=== PATIENT | male | born 1945 | race Caucasian/White ===

== ENCOUNTER 2017-10-28 12:18 | Emergency (ER) | payer MEDICARE, BC ==
[2017-10-28 12:30] VITALS: BP 115/71
--- NOTE | 2017-10-28 12:58 | EDM.PDOC ---
ED HPI GENERAL MEDICAL PROBLEM - General Chief Complaint: Respiratory Problem Stated Complaint: HEART PROBLEMS/COPD Time Seen by Provider: 10/28/17 12:30 Source of Information: Reports: Patient, RN Notes Reviewed - History of Present Illness INITIAL COMMENTS - FREE TEXT/NARRATIVE: 72-year-old male has been sent over from clinic for evaluation of cough, fever chills and being more short of breath than usual for about the past 2 weeks. He has used oxygen primarily at night and when necessary daytime in the past but has had to use oxygen much more frequently over the past 2 weeks. When symptoms first started he did have nasal and sinus congestion. That has improved somewhat over time. He continues to have somewhat frequent cough frequently productive of colored phlegm. He did go to the clinic this past morning for evaluation. He was noted to have some rhythm disturbance there and was found to have a heart rate of only 38. upon further questioning his states this was with pulse oximeter. Subsequent EKG sent over from clinic showed bigeminy with frequent PACs and a heart rate of 77. With that all in mind and suspected heart rate of only 38 he was sent here to the ED for further evaluation. He has had no chest pain, abdominal pain nausea vomiting. He does have chronic leg edema currently somewhat worse than usual. - Related Data Allergies Allergy/AdvReac Type Severity Reaction Status Date / Time No Known Allergies Allergy Verified 10/28/17 12:30 Home Meds: Home Meds ALPRAZolam [Xanax] 1 mg PO BID PRN 12/22/15 [History] Tiotropium [Spiriva HandiHaler] 1 puff INH DAILY 12/22/15 [History] Zolpidem [Ambien] 10 mg PO BEDTIME 12/22/15 [History] Albuterol [Proair HFA] 2 puff INH Q6H PRN 10/28/17 [History] Fluticasone/Vilanterol [Breo Ellipta 100-25 MCG Inhalation Kit] 1 puff INH DAILY 10/28/17 [History] Levofloxacin [Levaquin] 500 mg PO DAILY #10 tab 10/28/17 [Rx] Past Medical History HEENT History: Reports: Impaired Vision Respiratory History: Reports: COPD, Sleep Apnea Psychiatric History: Reports: Anxiety - Past Surgical History GI Surgical History: Reports: Colonoscopy Social & Family History - Tobacco Use Smoking Status *Q: Former Smoker Years of Tobacco use: 40 Packs/Tins Daily: 2 Used Tobacco, but Quit: No Month/Year Tobacco Last Used: 11 years ago - Caffeine Use Caffeine Use: Reports: Coffee - Recreational Drug Use Recreational Drug Use: No Drug Use in Last 12 Months: No - Living Situation & Occupation Living situation: Reports: , with Spouse Occupation: Employed ED ROS GENERAL - Review of Systems Review Of Systems: See Below Constitutional: Reports: Fever, Chills. Denies: Diaphoresis HEENT: Reports: Rhinitis, Sinus Problem Respiratory: Reports: Shortness of Breath, Wheezing, Cough, Sputum Cardiovascular: Denies: Chest Pain GI/Abdominal: Denies: Abdominal Pain, Nausea, Vomiting Musculoskeletal: Denies: Neck Pain, Shoulder Pain, Back Pain Skin: Denies: Rash Neurological: Denies: Dizziness, Trouble Speaking, Difficulty Walking ED EXAM, GENERAL - Physical Exam Exam: See Below General Appearance: Alert Eye Exam: Bilateral Eye: PERRL Nose: Normal Inspection Throat/Mouth: Normal Inspection, Normal Oropharynx Head: Atraumatic. No: Facial Swelling Neck: Supple, Full Range of Motion Respiratory/Chest: No Respiratory Distress, Lungs Clear, Decreased Breath Sounds Cardiovascular: Irregularly Irregular GI/Abdominal: Soft, Non-Tender Back Exam: No: CVA Tenderness (L), CVA Tenderness (R) Extremities: Pedal Edema. No: Leg Pain Neurological: Alert, Oriented, No Motor/Sensory Deficits Skin Exam: Warm, Dry, Other (Mild stasis dermatitis changes bilateral distal legs) Course - Vital Signs Last Recorded V/S: Last Vital Signs Temp 99.1 F 10/28/17 12:27 Pulse 73 10/28/17 12:27 Resp 16 10/28/17 12:27 BP 115/71 10/28/17 12:27 Pulse Ox 96 10/28/17 12:41 - Orders/Labs/Meds Labs: Laboratory Tests 10/28/17 10/28/17 Range/Units 11:48 11:48 C-Reactive Protein 4.0 H* (<1.0) mg/dL NT-Pro-B Natriuret Pep 677 H (0-125) pg/mL - Radiology Interpretation Free Text/Narrative:: Normal heart size on chest x-ray, appears to have bilateral upper lobe infiltrates suspect infectious according to radiology report which would fit his current symptoms. Possible mild pulmonary congestion. - Re-Assessments/Exams Free Text/Narrative Re-Assessment/Exam: 10/28/17 15:00. Labs have been sent or faxed over from clinic including a white blood count of 6300, chemistries normal, d-dimer and troponin normal. BNP normal , C-reactive protein mildly elevated. Heart rate while here in the ED has consistently been in the upper 60s to mid 70s. Much of the time he is been in supraventricular bigeminy. blood pressures have been very normal running primarily in the 130s systolic. He has been pain-free and oxygenation has been good with nasal O2 sats running in the mid 90s. His tells me as documented that his heart rate of 38 at the clinic was from a reading from a finger oximeter which must not have been picking up the PAC heartbeats or pulse because that would've been weaker secondary to decreased filling time. EKG sent over from the clinic showed a heart rate of 77. I have assured patient and his that he does not need a pacemaker at this time. His chest x-ray does show bilateral upper infiltrates, see radiology report for details. I am going to put him on Levaquin 500 milligrams daily for upper lobe pneumonia. I will put him on a six-day course of prednisone 40 mg every morning for 3 days and then 20 mg every morning for 3 days. Follow up clinic early next week. They will return to the ED if symptoms worsening in any way. Departure - Departure Time of Disposition: 15:17 Disposition: Home, Self-Care 01 Condition: Fair Clinical Impression: Pneumonia Qualifiers: Pneumonia type: due to unspecified organism Laterality: bilateral Lung location : upper lobe of lung Qualified Code(s): J18.1 - Lobar pneumonia, unspecified organism - Discharge Information Prescriptions: Levofloxacin [Levaquin] 500 mg PO DAILY #10 tab Referrals: Adonis Barron MD [Primary Care Provider] - Forms: ED Department Discharge Additional Instructions: Use inhalers as previously prescribed, Levaquin 500 mg daily for 10 days, continue to use oxygen aggressively until symptoms improving, prednisone 40 mg every morning for 3 days and then 20 mg every morning for [address] Barron early next week for recheck, call for appointment, return to ED as needed if symptoms worsening in any way
== END 2017-10-28 15:45 | disposition home or self-care (01) ==
LOC: JD.ED 12:18
DX: J18.9 Pneumonia, unspecified organism (principal); Z79.899 Other long term (current) drug therapy; Z87.891 Personal history of nicotine dependence; R06.02 Shortness of breath
CPT/HCPCS: 36415; 83880; 86140; 99284; 99285

== ENCOUNTER 2018-05-14 19:55 | Emergency (ER) | payer MEDICARE, BC ==
[2018-05-14 20:11] VITALS: BP 148/78
--- NOTE | 2018-05-14 21:03 | EDM.PDOC ---
ED HPI GENERAL MEDICAL PROBLEM - General Chief Complaint: Eye Problems Stated Complaint: EYE PROBLEM Time Seen by Provider: 05/14/18 21:03 - History of Present Illness INITIAL COMMENTS - FREE TEXT/NARRATIVE: 72-year-old male presents to the emergency room with continued left eye irritation. 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 He is not having any fevers or chills no perioral swelling Left Eye Pain Score (Numeric/FACES): 8 - Related Data Allergies Allergy/AdvReac Type Severity Reaction Status Date / Time No Known Allergies Allergy Verified 05/14/18 20:07 Home Meds: Home Meds ALPRAZolam [Xanax] 1 mg PO BID PRN 12/22/15 [History] Tiotropium [Spiriva HandiHaler] 1 puff INH DAILY 12/22/15 [History] Zolpidem [Ambien] 10 mg PO BEDTIME 12/22/15 [History] Albuterol [Proair HFA] 2 puff INH Q6H PRN 10/28/17 [History] Fluticasone/Vilanterol [Breo Ellipta 100-25 MCG Inhalation Kit] 1 puff INH DAILY 10/28/17 [History] Ciprofloxacin [Ciprofloxacin 0.3% Ophth Soln] 2 drop OP Q6H #1 bottle 05/14/18 [ Rx] Past Medical History HEENT History: Reports: Impaired Vision Respiratory History: Reports: COPD, Sleep Apnea Psychiatric History: Reports: Anxiety - Past Surgical History GI Surgical History: Reports: Colonoscopy Social & Family History - Tobacco Use Smoking Status *Q: Never Smoker - Caffeine Use Caffeine Use: Reports: Coffee - Living Situation & Occupation Living situation: Reports: , with Spouse Occupation: Employed ED ROS GENERAL - Review of Systems Review Of Systems: See Below Constitutional: Reports: No Symptoms HEENT: Reports: Eye Discharge. Denies: Ear Discharge, Ear Pain, Eye Pain, Nose Pain, Rhinitis Respiratory: Reports: No Symptoms Cardiovascular: Reports: No Symptoms GI/Abdominal: Reports: No Symptoms ED EXAM GENERAL W FULL EYE - Physical Exam Exam: See Below Exam Limited By: No Limitations General Appearance: Alert, No Apparent Distress Eye Exam: Bilateral Eye: Normal Fundi, PERRL Visual Acuity (R) 20/: 40 (This value was reported to be by nursing) Visual Acuity (L) 20/: 40 Conjunctiva & Sclera: Left: Conjunctival Edema, Discharge Cornea Exam: Bilateral: Normal Appearance Extraocular Movements: Bilateral: Intact Pupillary Reaction: Bilateral: Brisk Anterior Chamber: Bilateral: Normal Appearance Comments: No cold tenderness on palpation no evidence of yany-orbital cellulitis Neck: Normal Inspection, Supple, Non-Tender, Full Range of Motion. No: Lymphadenopathy (L), Lymphadenopathy (R) Respiratory/Chest: No Respiratory Distress, Lungs Clear, Normal Breath Sounds, No Accessory Muscle Use, Chest Non-Tender Cardiovascular: Normal Peripheral Pulses, Regular Rate, Rhythm, No Edema, No Gallop, No JVD, No Murmur, No Rub Course - Vital Signs Last Recorded V/S: Last Vital Signs Temp 36.8 C 05/14/18 20:08 Pulse 63 05/14/18 20:08 Resp 18 05/14/18 20:08 BP 148/78 H 05/14/18 20:08 Pulse Ox 89 L 05/14/18 20:08 - Re-Assessments/Exams Free Text/Narrative Re-Assessment/Exam: 05/14/18 21:16 Received conjunctivitis and polymyxin B eyedrops possible reaction to this compound we will change to Cipro 0.3% 2 drops 4 times a day for 5-7 days with follow-up with ophthalmology early this next week Departure - Departure Time of Disposition: 21:17 Disposition: Home, Self-Care 01 Clinical Impression: Conjunctivitis - Discharge Information Prescriptions: Ciprofloxacin [Ciprofloxacin 0.3% [facility]] 2 drop OP Q6H #1 bottle Instructions: Allergic Conjunctivitis, Adult, [id number] Referrals: Adonis Barron MD [Primary Care Provider] - Forms: ED Department Discharge Additional Instructions: Return to the emergency room with any questions problems worsening symptoms. Stop using her existing eyedrops start using the Cipro eyedrops to the effected eye 4 times daily for 5-7 day. Use warm moist compresses to the eye every couple hours while awake. At least once daily given the shower and scrub the area really well with Manjinder's baby shampoo. Follow-up with your eye doctor on Wednesday
== END 2018-05-14 21:27 | disposition home or self-care (01) ==
LOC: JD.ED 19:55
DX: H10.9 Unspecified conjunctivitis (principal); Z79.899 Other long term (current) drug therapy
CPT/HCPCS: 99282; 99283

== ENCOUNTER 2018-08-23 20:10 | Emergency (ER) | payer MEDICARE, BC ==
[2018-08-23 20:21] VITALS: BP 122/70
--- NOTE | 2018-08-23 20:27 | EDM.PDOC ---
ED HPI GENERAL MEDICAL PROBLEM - General Chief Complaint: Respiratory Problem Stated Complaint: SHORT OF BREATH Time Seen by Provider: 08/23/18 20:27 Source of Information: Reports: Patient History Limitations: Reports: Respiratory Distress - History of Present Illness INITIAL COMMENTS - FREE TEXT/NARRATIVE: 72-year-old male attends the ED with gradually worsening dyspnea over the last several days and perhaps even a week. No associated fever chills. Nose is congested he's always blowing it. He denies any productive cough. He appreciates increased wheezing and dyspnea on minimal exertion. Even walking to the bathroom makes him dyspnea a great change from his norm over the last week. Patient recently did see the roll up machine operator and had his oxygen increased from 2- 4 L/m at all times. He's had COPD for 10 years and appears to have suffered a acute exacerbation and decline in pulmonary function. He denies any changes in his medications. Uses 3 different puffers in the morning. He denies use of an old nebulizer. Denies any chest pain. States he can eat much because his stomach feels so full. Onset: Gradual Onset Date: 08/16/18 (Gradually worsening dyspnea over the last week or perhaps even longer.) Duration: Day(s):, Getting Worse Location: Reports: Chest (Shortness of breath on minimal exertion. Exercise will go down into the 70s on minimal exertion on his pulse ox even with oxygen.) Quality: Reports: Other Severity: Severe (Severe dyspnea) Improves with: Reports: Rest Worsens with: Reports: Movement Context: Denies: Activity, Exercise, Lifting, Sick Contact, Trauma Associated Symptoms: Reports: Loss of Appetite, Malaise, Shortness of Breath. 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) (Just his regular medications.) - Related Data Allergies Allergy/AdvReac Type Severity Reaction Status Date / Time No Known Allergies Allergy Verified 05/14/18 20:07 Home Meds: Home Meds ALPRAZolam [Xanax] 1 mg PO BID PRN 12/22/15 [History] Tiotropium [Spiriva HandiHaler] 1 puff INH DAILY 12/22/15 [History] Zolpidem [Ambien] 10 mg PO BEDTIME 12/22/15 [History] Albuterol [Proair HFA] 2 puff INH Q6H PRN 10/28/17 [History] Fluticasone/Vilanterol [Breo Ellipta 100-25 MCG Inhalation Kit] 1 puff INH DAILY 10/28/17 [History] Cholecalciferol (Vitamin D3) [Vitamin D3] 1 cap PO DAILY 08/23/18 [History] Furosemide [Lasix] 40 mg PO DAILY #30 tab 08/23/18 [Rx] Iron 18 mg PO DAILY 08/23/18 [History] Potassium Chloride 20 meq PO BID #60 tablet.er 08/23/18 [Rx] Past Medical History HEENT History: Reports: Impaired Vision Respiratory History: Reports: COPD (Currently on oxygen at 4 L/m at all times.) , Sleep Apnea Psychiatric History: Reports: Anxiety - Past Surgical History GI Surgical History: Reports: Colonoscopy Social & Family History - Tobacco Use Smoking Status *Q: Former Smoker Used Tobacco, but Quit: Yes Month/Year Tobacco Last Used: 13 yr - Caffeine Use Caffeine Use: Reports: Coffee - Recreational Drug Use Recreational Drug Use: No - Living Situation & Occupation Living situation: Reports: , with Spouse Occupation: Employed ED ROS GENERAL - Review of Systems Review Of Systems: See Below Constitutional: Reports: Malaise, Weakness, Fatigue, Decreased Appetite. Denies : Fever, Chills HEENT: Reports: Glasses, Sinus Problem (Has a chronic sinus drainage.) Respiratory: Reports: Shortness of Breath, Wheezing. Denies: Pleuritic Chest Pain, Cough, Hemoptysis Cardiovascular: Reports: Dyspnea on Exertion (HAS a little swelling in his lower extremities), Edema. Denies: Chest Pain, Blood Pressure Problem, Claudication, Lightheadedness, Orthopnea, Palpitations Endocrine: Reports: Fatigue GI/Abdominal: Reports: Abdominal Pain (Abdominal pressure but no pain per se). Denies: Constipation : Reports: Frequency, Other (Has BPH) Musculoskeletal: Reports: No Symptoms Skin: Reports: Other (Chronic venous stasis dermatitis in both lower extremities with no previous ulcers of the lower extremities reported.) Neurological: Reports: No Symptoms Psychiatric: Reports: No Symptoms Hematologic/Lymphatic: Reports: No Symptoms Immunologic: Reports: No Symptoms ED EXAM, GENERAL - Physical Exam Exam: See Below Exam Limited By: No Limitations General Appearance: Alert, WD/WN, Mild Distress, Other (Sats are 94% at rest. This is on 3 L/m by nasal cannula) Eye Exam: Bilateral Eye: Normal Inspection Ears: Normal TMs Throat/Mouth: Normal Inspection, Normal Lips, Normal Teeth, Normal Gums, Normal Oropharynx Head: Atraumatic, Normocephalic Neck: Normal Inspection, Supple, Non-Tender, Full Range of Motion. No: Lymphadenopathy (R), Tender Midline Respiratory/Chest: No Accessory Muscle Use, Respiratory Distress (Tachypnea at rest. 20-22/m.), Decreased Breath Sounds (Breath sounds are diminished to the lower 25% of lung hi bilaterally. Bilateral expiratory wheezes are appreciated), Wheezing ( from the lung bases.). No: Rales, Rhonchi Cardiovascular: Regular Rate, Rhythm, No Murmur, No Rub. No: No Edema Peripheral Pulses: 1+: Posterior Tibial (L), Posterior Tibial (R), Dorsalis Pedis (L), Dorsalis Pedis (R) GI/Abdominal: Distended (I'll sounds are quite active in all 4 quadrants. Ms. grossly distended and tympanitic to percussion due to aerophagia. He does have a midline abdominal incision that occurred apparently after colonoscopy with perforation of his colon which required surgical intervention and primary anastomosis or closure of the rupture. This occurred in [place].), Abnormal Bowel Sounds Back Exam: Normal Inspection, Full Range of Motion. No: CVA Tenderness (L), CVA Tenderness (R) Extremities: Normal Inspection, Normal Range of Motion, Non-Tender, No Pedal Edema Neurological: Alert, Oriented, CN II-XII Intact, Normal Cognition Psychiatric: Normal Affect, Normal Mood Skin Exam: Warm, Dry, Intact, Normal Color, No Rash EKG INTERPRETATION EKG Date: 08/23/18 Time: 20:48 Rhythm: Other (Frequent PACs.) Rate (Beats/Min): 60 [place]: Normal P-Wave: Enlarged (Consider left and right atrial hypertrophy.) QRS: Other (Nonspecific intraventricular conduction delay likely developing right bundle block pattern) ST-T: Normal QT: Normal EKG Interpretation Comments: Abnormal ECG Course - Vital Signs Last Recorded V/S: Last Vital Signs Temp 36.2 C 08/23/18 20:19 Pulse 63 08/23/18 20:19 Resp 20 08/23/18 20:19 BP 122/70 08/23/18 20:19 Pulse Ox 97 08/23/18 21:18 - Orders/Labs/Meds Orders: Active Orders 24 hr Category Date Time Status EKG Documentation Completion [RC] STAT Care 08/23/18 20:39 Active Oxygen Therapy [RC] ASDIRECTED Care 08/23/18 20:39 Active Peripheral IV Care [RC] . DIRECTED Care 08/23/18 20:40 Active RT Aerosol Therapy [RC] ASDIRECTED Care 08/23/18 20:41 Active Chest 1V Frontal [CR] Stat Exams 08/23/18 20:39 Taken Peripheral IV Insertion Adult [OM.PC] Stat Oth 08/23/18 20:40 Ordered Labs: Laboratory Tests 08/23/18 08/23/18 08/23/18 Range/Units 21:20 21:20 21:20 WBC 4.65 (4.23-9.07) K/mm3 RBC 2.98 L (4.63-6.08) M/mm3 Hgb 10.2 L (13.7-17.5) gm/L Hct 31.8 L (40.1-51.0) % MCV 106.7 H (79.0-92.2) fl MCH 34.2 H (25.7-32.2) pg MCHC 32.1 L (32.2-35.5) g/dl RDW Std Deviation 59.2 H (35.1-43.9) fL Plt Count 195 (163-337) K/mm3 MPV 9.6 (9.4-12.3) fl Neutrophils % (Manual) 74 H (40-60) % Band Neutrophils % 0 (0-10) % Lymphocytes % (Manual) 19 L (20-40) % Atypical Lymphs % 0 % Monocytes % (Manual) 4 (2-10) % Eosinophils % (Manual) 2 (0.8-7.0) % Basophils % (Manual) 1 (0.2-1.2) Platelet Estimate Adequate Polychromasia Few Poikilocytosis 1+ slight Anisocytosis 2+ moderate Macrocytosis 2+ moderate Ovalocytes 1+ slight D-Dimer, Quantitative (0.19-0.50) mg/L Sodium 144 (136-145) mEq/L Potassium 3.5 (3.5-5.1) mEq/L Chloride 110 H (98-107) mEq/L Carbon Dioxide 26 (21-32) mEq/L Anion Gap 11.5 (5-15) BUN 21 H (7-18) mg/dL Creatinine 1.3 (0.7-1.3) mg/dL Est Cr Clr Drug Dosing 54.71 mL/min Estimated GFR (MDRD) 54 (>60) mL/min BUN/Creatinine Ratio 16.2 (14-18) Glucose 139 H (83-115) mg/dL Calcium 8.4 L (8.5-10.1) mg/dL Magnesium 2.0 (1.8-2.4) mg/dl Total Bilirubin 0.6 (0.2-1.0) mg/dL AST 22 (15-37) U/L ALT 32 (16-63) U/L Alkaline Phosphatase 60 (46-116) U/L CK-MB (CK-2) 1.6 (0-3.6) ng/ml Troponin I 0.027 (0.00-0.056) ng/mL C-Reactive Protein 5.6 H* (<1.0) mg/dL NT-Pro-B Natriuret Pep 674 H (0-125) pg/mL Total Protein 6.5 (6.4-8.2) g/dl Albumin 3.1 L (3.4-5.0) g/dl Globulin 3.4 gm/dL Albumin/Globulin Ratio 0.9 L (1-2) 08/23/18 Range/Units 21:20 WBC (4.23-9.07) K/mm3 RBC (4.63-6.08) M/mm3 Hgb (13.7-17.5) gm/L Hct (40.1-51.0) % MCV (79.0-92.2) fl MCH (25.7-32.2) pg MCHC (32.2-35.5) g/dl RDW Std Deviation (35.1-43.9) fL Plt Count (163-337) K/mm3 MPV (9.4-12.3) fl Neutrophils % (Manual) (40-60) % Band Neutrophils % (0-10) % Lymphocytes % (Manual) (20-40) % Atypical Lymphs % % Monocytes % (Manual) (2-10) % Eosinophils % (Manual) (0.8-7.0) % Basophils % (Manual) (0.2-1.2) Platelet Estimate Polychromasia Poikilocytosis Anisocytosis Macrocytosis Ovalocytes D-Dimer, Quantitative 0.36 (0.19-0.50) mg/L Sodium (136-145) mEq/L Potassium (3.5-5.1) mEq/L Chloride (98-107) mEq/L Carbon Dioxide (21-32) mEq/L Anion Gap (5-15) BUN (7-18) mg/dL Creatinine (0.7-1.3) mg/dL Est Cr Clr Drug Dosing mL/min Estimated GFR (MDRD) (>60) mL/min BUN/Creatinine Ratio (14-18) Glucose (83-115) mg/dL Calcium (8.5-10.1) mg/dL Magnesium (1.8-2.4) mg/dl Total Bilirubin (0.2-1.0) mg/dL AST (15-37) U/L ALT (16-63) U/L Alkaline Phosphatase (46-116) U/L CK-MB (CK-2) (0-3.6) ng/ml Troponin I (0.00-0.056) ng/mL C-Reactive Protein (<1.0) mg/dL NT-Pro-B Natriuret Pep (0-125) pg/mL Total Protein (6.4-8.2) g/dl Albumin (3.4-5.0) g/dl Globulin gm/dL Albumin/Globulin Ratio (1-2) Meds: Medications Discontinued Medications Generic Name Dose Route Start Last Admin Trade Name Freq PRN Reason Stop Dose Admin Albuterol/Ipratropium 3 ml 08/23/18 20:41 08/23/18 21:15 Duoneb 3.0-0.5 Mg/3 Ml NEB 08/23/18 20:42 3 ml ONETIME ONE Administration Furosemide 40 mg 08/23/18 22:25 08/23/18 22:45 Lasix PO 08/23/18 22:26 40 mg ONETIME ONE Administration Sodium Chloride 10 ml 08/23/18 20:39 Saline Flush FLUSH ASDIRECTED PRN Keep Vein Open - Radiology Interpretation Free Text/Narrative:: 72-year-old male attends the ED tonight due to gradually worsening dyspnea over the last week or perhaps even longer. There is a component of orthopnea as well. Patient has COPD for at least 10 years and has been oxygen dependent for that length of time. He also has sleep apnea and does use a CPAP machine at bedtime. Over the last week to 10 days she's developed increasing dyspnea on minimal exertion such as walking to the bathroom. He has oxygen was recently increased from 2 L/m 4 L/m by his roll up machine operator within the last 6 weeks. He has mild cough. No fever or chills. He is handheld nebulizers for treatment of his COPD but doesn't feel they're working very well as of late. Cough is if anything nonproductive. He can't eat because he feels so bloated and distended due to aerophagia. Examination reveals decreased air into the lower 25% lung hi bilaterally with bilateral expiratory wheezes. Rales were identified. His lower chimney is however show dependent edema to mid calf bilaterally are 2 + to 3+ pitting edema with some venous stasis dermatitis noted bilaterally likely due to chronic right-sided heart failure. There was no positive hepatojugular reflux. Question is exacerbation of COPD whether or not there is a just heart failure component. Plan 1 view chest x-ray to be done. Routine labs include BNP and serum magnesium. He will be given a DuoNeb here in the ED. Roommate be maintain on oxygen 3 L/m is a sats are 94-96% currently. - Re-Assessments/Exams Free Text/Narrative Re-Assessment/Exam: 08/23/18 21:24 chest x-ray reveals markedly hyperinflated lung hi. Minimal cardiomegaly. There appears to be hazy infiltrate adjacent to the left heart border lower lung field. There does appear to be diffuse vascular congestion to both upper lobes. There is no pleural effusion evident. ECG shows sinus rhythm at 60/m with occasional PACs. No signs of ischemia evident. No ECG evidence of right-sided heart enlargement. 08/23/18 22:13 Labs reveal a normal white count at 4.65. Differential is 74% neutrophils with no band cells. Hemoglobin is low at 10.2 with hematocrit of 31.8. MCV is elevated at 106.7. Platelet count is 195,000. Lymphocyte count 19% . The slide shows 1+ poikilocytosis. It shows 2+ anisocytosis and 2+ macrocytosis and 1+ ovalocytes. The d-dimer is 0.36. Normal sodium 144 with potassium of 3.5. Chloride 110 with a bicarbonate 26. And a gap is 11.5. BUN is 21. Creatinine is 1.3 EGFR is 54. Glucose is 139 with a calcium of 8.4. He needs to miss 2.0. Liver function is normal. CK-MB fraction is 1.6 troponin I is 0.027. C-reactive protein is mildly elevated at 5.6. BNP is elevated at 674. Total protein 6.5 with an albumin fraction of only 3.1. 08/23/18 22:25 Discussed the findings with the patient. I will give him Lasix 40 mg by mouth since an IV was never started on him. I will start him on Lasix 40 mg once daily every morning. His potassium is 3.5 and therefore I will also start him on potassium supplement 20 mEq of Slow-K ,twice daily .he will check his weights daily and write them down. He has a follow-up appointment with roll up machine operator(Sep 19) and his primary care physician Dr. Barron--next week Wednesday. Patient is going to need an echocardiogram. He is due for bone marrow aspiration on this week in [place]. Departure - Departure Time of Disposition: 22:27 Disposition: Home, Self-Care 01 Condition: Fair Clinical Impression: COPD exacerbation, Macrocytic anemia Congestive heart failure Qualifiers: Heart failure type: combined systolic and diastolic Heart failure chronicity: acute Qualified Code(s): I50.41 - Acute combined systolic (congestive) and diastolic (congestive) heart failure - Discharge Information *PRESCRIPTION DRUG MONITORING PROGRAM REVIEWED*: Not Applicable *COPY OF PRESCRIPTION DRUG MONITORING REPORT IN PATIENT NICOLE: Not Applicable Prescriptions: Furosemide [Lasix] 40 mg PO DAILY #30 tab Potassium Chloride 20 meq PO BID #60 tablet.er Instructions: Chronic Obstructive Pulmonary Disease, [id number], Heart Failure, [id number] Referrals: Adonis Barron MD [Primary Care Provider] - Forms: ED Department Discharge Additional Instructions: Evaluation the emergency room today in regards to increasing shortness of breath on minimal exertion. Chronic COPD for greater than 10 years and need for CPAP machine at bedtime for about 10 years. Emanation reveals decreased air entry to the lower lung hi bilaterally with mild expiratory wheezes. O2 sats remained above 94% on 3 or 4 L/m by nasal cannula. Chest x-ray suggested diffuse increased fluid within the lung vessels. Call this diffuse vascular congestion. Lab test confirm that there is an increased amount of fluid buildup within your lungs with a BNP of 674. Therefore treatment is to start a diuretic called Lasix 40 mg once daily every morning to help remove fluid from both her lower extremities as well as your lungs. Follow-up with Dr. Barron next week as planned and he will arrange an echocardiogram to look at the structure in size and shape of your heart. Also measures how well the pump is functioning. Placed up on the scale every morning and went on your weight so that we can see how much fluid you may lose over the next week or so. It is still okay to proceed with bone marrow biopsy on as planned in [place]. Continue all other medications as before. The second medication will require is a potassium supplement since her potassium is low normal at 3.5. Water pills make the potassium go lower. Will need potassium pills Slow-K 20 mg twice daily with food used to breakfast and supper. - My Orders Last 24 Hours: My Active Orders 08/23/18 20:39 EKG Documentation Completion [RC] STAT Oxygen Therapy [RC] ASDIRECTED Chest 1V Frontal [CR] Stat 08/23/18 20:40 Peripheral IV Care [RC] . DIRECTED Peripheral IV Insertion Adult [OM.PC] Stat 08/23/18 20:41 RT Aerosol Therapy [RC] ASDIRECTED - Assessment/Plan Last 24 Hours: My Active Orders 08/23/18 20:39 EKG Documentation Completion [RC] STAT Oxygen Therapy [RC] ASDIRECTED Chest 1V Frontal [CR] Stat 08/23/18 20:40 Peripheral IV Care [RC] . DIRECTED Peripheral IV Insertion Adult [OM.PC] Stat 08/23/18 20:41 RT Aerosol Therapy [RC] ASDIRECTED
[2018-08-23] MEDS ORDERED: Sodium Chloride 0.9% 10 ML Syringe FLUSH PRN (20:39)
[2018-08-23] MEDS ORDERED: Albuterol/Ipratropium 3.0-0.5 MG/3 ML Neb Soln NEB ONE (20:41)
[2018-08-23] MEDS ORDERED: Furosemide 40 MG/4 ML VIAL IVPUSH ONE (22:14)
[2018-08-23] MEDS ORDERED: Furosemide 40 MG Tab PO ONE (22:25)
--- NOTE | 2018-08-24 07:07 | CR ---
Chest: Portable view of the chest was obtained. Comparison: Prior chest x-ray of 01/25/16. Heart size appears within normal limits for portable technique. Tortuous thoracic aorta is seen. Lungs are clear without acute parenchymal change. Central lung markings are mildly increased which appear stable from prior chest x-ray. Probable emphysematous change is also noted. Impression: 1. Probable emphysematous change. Other findings are believed to be stable and related to portable technique. 2. Nothing acute is suspected. Diagnostic code #2
== END 2018-08-23 22:45 | disposition home or self-care (01) ==
LOC: JD.ED 20:10
DX: I50.41 Acute combined systolic (congestive) and diastolic (congestive) heart failure (principal); J44.1 Chronic obstructive pulmonary disease with (acute) exacerbation; D53.9 Nutritional anemia, unspecified; Z79.899 Other long term (current) drug therapy; Z87.891 Personal history of nicotine dependence
CPT/HCPCS: 36415; 71045; 80053; 82553; 83735; 83880; 84484; 85007; 85027; 85379; 86140; 93005; 94640; 99285; A9270; 93010; 99283; J7620-GY

== ENCOUNTER 2018-12-10 12:33 | Emergency (ER) | payer MEDICARE, BC ==
[2018-12-10 12:46] VITALS: BP 125/75
--- NOTE | 2018-12-10 13:47 | EDM.PDOC ---
ED HPI GENERAL MEDICAL PROBLEM - General Chief Complaint: Back Pain or Injury Stated Complaint: LOW RT SIDE BACK PAIN Time Seen by Provider: 12/10/18 12:45 Source of Information: Reports: Patient, Family, RN Notes Reviewed (s) - History of Present Illness INITIAL COMMENTS - FREE TEXT/NARRATIVE: 73-year-old male comes in with right low back pain. This started about 2 weeks ago. The pain is primarily in the right low back, without radiation, worse with walking, bending, twisting and other certain types of motion. He does not recall any particular type of injury. The pain does not radiate down to his leg at all. No abdominal pain nausea vomiting. Voiding frequency but also on furosemide "which makes me by mouth at time after taking it". He has had no voiding dysuria, no hematuria. He is chronically short of breath with exertion with history of COPD, does use oxygen continuous. He has been taking Tylenol ibuprofen and "muscle relaxants at least intermittently without meaningful relief. Right Flank Pain Score (Numeric/FACES): 1 - Related Data Allergies Allergy/AdvReac Type Severity Reaction Status Date / Time No Known Allergies Allergy Verified 12/10/18 12:42 Home Meds: Home Meds ALPRAZolam [Xanax] 1 mg PO BID PRN 12/22/15 [History] Tiotropium [Spiriva HandiHaler] 1 puff INH DAILY 12/22/15 [History] Zolpidem [Ambien] 10 mg PO BEDTIME PRN 12/22/15 [History] Albuterol [Proair HFA] 2 puff INH Q6H PRN 10/28/17 [History] Fluticasone/Vilanterol [Breo Ellipta 100-25 MCG Inhalation Kit] 1 puff INH DAILY 10/28/17 [History] Furosemide [Lasix] 40 mg PO DAILY #30 tab 08/23/18 [Rx] Iron 18 mg PO DAILY 08/23/18 [History] Potassium Chloride 20 meq PO BID #60 tablet.er 08/23/18 [Rx] Cholecalciferol (Vitamin D3) [Vitamin D3] 2,000 unit PO DAILY 12/10/18 [History] Past Medical History HEENT History: Reports: Impaired Vision Respiratory History: Reports: COPD, Sleep Apnea Psychiatric History: Reports: Anxiety - Past Surgical History GI Surgical History: Reports: Colonoscopy Social & Family History - Tobacco Use Smoking Status *Q: Former Smoker Used Tobacco, but Quit: Yes Month/Year Tobacco Last Used: 2014 - Caffeine Use Caffeine Use: Reports: Coffee - Living Situation & Occupation Living situation: Reports: , with Spouse Occupation: Employed ED ROS GENERAL - Review of Systems Review Of Systems: See Below Constitutional: Denies: Fever, Chills, Diaphoresis HEENT: Denies: Throat Pain Respiratory: Reports: Shortness of Breath (Mild chronically but not worse than usual), Cough Cardiovascular: Denies: Chest Pain (Occasional) GI/Abdominal: Denies: Abdominal Pain, Nausea, Vomiting : Reports: Frequency. Denies: Hematuria, Pain Musculoskeletal: Reports: Back Pain. Denies: Leg Pain Skin: Denies: Rash Neurological: Denies: Numbness, Tingling, Weakness ED EXAM,LOWER BACK PAIN/INJURY - Physical Exam Exam: See Below General Appearance: Alert, No Apparent Distress (At rest) Eye Exam: Bilateral Eye: PERRL Throat/Mouth: Normal Inspection, Normal Oropharynx Head: Atraumatic Neck: Supple Respiratory/Chest: No Respiratory Distress, Lungs Clear, Normal Breath Sounds Cardiovascular: Bradycardia Back Exam: Other (There is very mild tenderness of the right low back over the sacroiliac area, back otherwise nontender, no appreciable spasm). No: CVA Tenderness (L), CVA Tenderness (R) Extremities: No: Pedal Edema Neurological: Alert, No Motor/Sensory Deficits, Oriented x 3 Skin Exam: Warm, Dry, Normal Color Course - Vital Signs Last Recorded V/S: Last Vital Signs Temp 98.0 F 12/10/18 12:43 Pulse 52 L 12/10/18 12:43 Resp 18 12/10/18 12:43 BP 125/75 12/10/18 12:43 Pulse Ox 98 12/10/18 12:43 - Orders/Labs/Meds Labs: Laboratory Tests 12/10/18 12/10/18 12/10/18 Range/Units 13:23 13:23 13:26 WBC 5.32 (4.23-9.07) K/mm3 RBC 3.61 L (4.63-6.08) M/mm3 Hgb 12.4 L D (13.7-17.5) gm/L Hct 37.6 L (40.1-51.0) % MCV 104.2 H (79.0-92.2) fl MCH 34.3 H (25.7-32.2) pg MCHC 33.0 (32.2-35.5) g/dl RDW Std Deviation 58.6 H (35.1-43.9) fL Plt Count 169 (163-337) K/mm3 MPV 8.7 L (9.4-12.3) fl Neut % (Auto) 68.0 H (34.0-67.9) % Lymph % (Auto) 20.1 L (21.8-53.1) % [place] % (Auto) 10.0 (5.3-12.2) % Eos % (Auto) 1.1 (0.8-7.0) Baso % (Auto) 0.4 (0.1-1.2) % Neut # (Auto) 3.62 (1.78-5.38) K/mm3 Lymph # (Auto) 1.07 L (1.32-3.57) K/mm3 [place] # (Auto) 0.53 (0.30-0.82) K/mm3 Eos # (Auto) 0.06 (0.04-0.54) K/mm3 Baso # (Auto) 0.02 (0.01-0.08) K/mm3 Sodium 143 (136-145) mEq/L Potassium 3.7 (3.5-5.1) mEq/L Chloride 105 (98-107) mEq/L Carbon Dioxide 26 (21-32) mEq/L Anion Gap 15.7 H (5-15) BUN 19 H (7-18) mg/dL Creatinine 1.1 (0.7-1.3) mg/dL Est Cr Clr Drug Dosing 63.70 mL/min Estimated GFR (MDRD) > 60 (>60) mL/min BUN/Creatinine Ratio 17.3 (14-18) Glucose 96 (83-115) mg/dL Calcium 8.9 (8.5-10.1) mg/dL Total Bilirubin 0.8 (0.2-1.0) mg/dL AST 24 (15-37) U/L ALT 32 (16-63) U/L Alkaline Phosphatase 66 (46-116) U/L Total Protein 7.0 (6.4-8.2) g/dl Albumin 4.0 (3.4-5.0) g/dl Globulin 3.0 gm/dL Albumin/Globulin Ratio 1.3 (1-2) Urine Color Yellow (Yellow) Urine Appearance Clear (Clear) Urine pH 6.0 (5.0-8.0) Ur Specific [place] 1.020 (1.005-1.030) Urine Protein Negative (Negative) Urine Glucose (UA) Negative (Negative) Urine Ketones Negative (Negative) Urine Occult Blood Negative (Negative) Urine Nitrite Negative (Negative) Urine Bilirubin Negative (Negative) Urine Urobilinogen 0.2 (0.2-1.0) Ur Leukocyte Esterase Negative (Negative) Urine RBC Not seen (0-5) /hpf Urine WBC Not seen (0-5) /hpf Ur Epithelial Cells 0-5 (0-5) /hpf Urine Bacteria Rare (FEW) /hpf Urine Mucus Not seen (FEW) /hpf Meds: Medications Discontinued Medications Generic Name Dose Route Start Last Admin Trade Name Freq PRN Reason Stop Dose Admin Acetaminophen 975 mg 12/10/18 14:35 12/10/18 14:39 Tylenol PO 12/10/18 14:36 975 mg NOW ONE Administration - Re-Assessments/Exams Free Text/Narrative Re-Assessment/Exam: 12/10/18 16:49 UA, labs all did come back normal, his pain does seem to be muscular right low back, discharge instructions as documented, I have ordered a course of physical therapy as well. Departure - Departure Time of Disposition: 14:36 Disposition: Home, Self-Care 01 Condition: Fair Clinical Impression: Low back pain Qualifiers: Chronicity: acute Back pain laterality: right Sciatica presence: without sciatica Qualified Code(s): M54.5 - Low back pain - Discharge Information Instructions: Low Back Sprain Rehab-[facility] Referrals: Adonis Barron MD [Primary Care Provider] - Forms: ED Department Discharge Additional Instructions: Continue to rest back, no heavy lifting, you may alternate ice and heat as needed ibuprofen 600 mg 3 times daily with food, take Tylenol 1000 mg in between doses of ibuprofen for extra pain relief, take either one half tablet or 1 tablet hydrocodone in addition on occasion if needed for severe pain not relieved by prior medications. Begin physical therapy early next week, follow- up with Dr. Skaggs in about 10-14 days for recheck. ED as needed if symptoms worsening in any way.
[2018-12-10] MEDS ORDERED: Acetaminophen 325 MG Tab PO ONE (14:35)
== END 2018-12-10 14:51 | disposition home or self-care (01) ==
LOC: JD.ED 12:33
DX: M54.5 Low back pain (principal); J44.9 Chronic obstructive pulmonary disease, unspecified; F41.9 Anxiety disorder, unspecified; Z87.891 Personal history of nicotine dependence; Z79.899 Other long term (current) drug therapy
CPT/HCPCS: 36415; 80053; 81001; 85025; 99283; A9270; 99282

== ENCOUNTER 2020-02-21 18:30 | Emergency (ER) | payer MEDICARE, BC ==
[2020-02-21 18:57] VITALS: BP 126/73; PULSE 77
[2020-02-21] MEDS ORDERED: Sodium Chloride 0.9% 10 ML Syringe FLUSH PRN (19:11)
[2020-02-21] MEDS ORDERED: Albuterol/Ipratropium 3.0-0.5 MG/3 ML Neb Soln NEB ONE (19:12)
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
--- NOTE | 2020-02-21 20:24 | CR ---
Chest: Portable view of the chest was obtained. Comparison: Previous chest x-ray of 08/23/18. Heart size and mediastinum are normal. Lungs are clear with no acute parenchymal change. Chronic blunting of the costophrenic angles is seen most likely representing emphysematous change. Impression: 1. Nothing acute seen on portable chest x-ray. Diagnostic code #2 This report was dictated in MDT
== END 2020-02-21 21:45 | disposition home or self-care (01) ==
LOC: JD.ED 18:30
DX: J44.9 Chronic obstructive pulmonary disease, unspecified (principal); F03.91 Unspecified dementia, unspecified severity, with behavioral disturbance; F41.9 Anxiety disorder, unspecified; Z79.899 Other long term (current) drug therapy
CPT/HCPCS: 36415; 71045; 80053; 80306; 80307; 84484; 85025; 93005; 94640; 99285; U0002; J7620-GY

== ENCOUNTER 2020-03-09 13:19 | Emergency (ER) | payer MEDICARE, BC ==
[2020-03-09 13:30] VITALS: BP 169/93; PULSE 69
--- NOTE | 2020-03-09 13:42 | EDM.PDOC ---
ED HPI GENERAL MEDICAL PROBLEM - General Chief Complaint: Skin Complaint Stated Complaint: L ARM SKIN COMPLAINT Time Seen by Provider: 03/09/20 13:26 Source of Information: Reports: Patient, Family History Limitations: Reports: No Limitations - History of Present Illness INITIAL COMMENTS - FREE TEXT/NARRATIVE: Patient is a 74-year-old male who presents to the emergency department with complaints of a skin tear to the left lateral elbow. Patient states that he had fallen about 1 week ago. They have been applying Neosporin ointment and nonstick dressing to the injury, however it is not healing and does have purulent drainage when they change the dressings in the morning. Area surrounding it is tender. He has had no fever, chills, nausea, or vomiting. - Related Data Allergies Allergy/AdvReac Type Severity Reaction Status Date / Time No Known Allergies Allergy Verified 03/09/20 13:30 Home Meds: Home Meds ALPRAZolam [Xanax] 1 mg PO BID PRN 12/22/15 [History] Tiotropium [Spiriva HandiHaler] 1 puff INH DAILY 12/22/15 [History] Albuterol [Proair HFA] 2 puff INH Q6H PRN 10/28/17 [History] Fluticasone/Vilanterol [Breo Ellipta 100-25 MCG Inhalation Kit] 1 puff INH DAILY 10/28/17 [History] Furosemide [Lasix] 40 mg PO DAILY #30 tab 08/23/18 [Rx] Iron 18 mg PO DAILY 08/23/18 [History] Potassium Chloride 20 meq PO BID #60 tablet.er 08/23/18 [Rx] Cholecalciferol (Vitamin D3) [Vitamin D3] 2,000 unit PO DAILY 12/10/18 [History] Doxycycline [Vibramycin] 100 mg PO BID 10 Days #20 cap 03/09/20 [Rx] buPROPion HCL [Wellbutrin SR] 150 mg PO BID 03/09/20 [History] Past Medical History HEENT History: Reports: Impaired Vision Cardiovascular History: Reports: None Respiratory History: Reports: COPD, Sleep Apnea Genitourinary History: Reports: None Musculoskeletal History: Reports: None Neurological History: Reports: None Psychiatric History: Reports: Anxiety, Dementia Endocrine/Metabolic History: Reports: None Hematologic History: Reports: Bleeding Disorder Immunologic History: Reports: None Oncologic (Cancer) History: Reports: None Dermatologic History: Reports: Other (See Below) Other Dermatologic History: Skin bruises easily. - Infectious Disease History Infectious Disease History: Reports: None - Past Surgical History GI Surgical History: Reports: Colonoscopy, Other (See Below) Other GI Surgeries/Procedures: Abdominal surgery due to having his colon and intestines punctured by the colonoscopy. Social & Family History - Tobacco Use Smoking Status *Q: Former Smoker Used Tobacco, but Quit: Yes Month/Year Tobacco Last Used: 2005 - Caffeine Use Caffeine Use: Reports: Coffee - Recreational Drug Use Recreational Drug Use: No - Living Situation & Occupation Living situation: Reports: , with Spouse Occupation: Employed ED ROS GENERAL - Review of Systems Review Of Systems: See Below Constitutional: Reports: No Symptoms. Denies: Fever, Chills, Weakness GI/Abdominal: Reports: No Symptoms. Denies: Nausea, Vomiting ED EXAM, SKIN/RASH Exam: See Below Exam Limited By: No Limitations General Appearance: Alert, WD/WN, No Apparent Distress Respiratory/Chest: No Respiratory Distress, Lungs Clear, Normal Breath Sounds, No Accessory Muscle Use, Chest Non-Tender Cardiovascular: Normal Peripheral Pulses, Regular Rate, Rhythm, No Edema, No Gallop, No JVD, No Murmur, No Rub Extremities: Other (2.5 cm, scabbed skin tear to the lateral aspect of the left elbow. Mild redness surrounding the skin tear. Area is not warm to touch. Small amount of dried purulence present to the surface.) Neurological: Alert, Oriented, CN II-XII Intact, Normal Cognition, Normal Gait, Normal Reflexes, No Motor/Sensory Deficits Psychiatric: Normal Affect, Normal Mood Course - Vital Signs Last Recorded V/S: Last Vital Signs Temp 97.6 F 03/09/20 13:26 Pulse 69 03/09/20 13:26 Resp 18 03/09/20 13:26 BP 169/93 H 03/09/20 13:26 Pulse Ox 100 03/09/20 13:26 - Re-Assessments/Exams Free Text/Narrative Re-Assessment/Exam: 03/09/20 13:39 On exam, patient does have a mildly infected skin tear to the left lateral elbow. He has had no fever, chills, nausea, or vomiting. Area of redness is localized to the skin tear does not extend beyond. We will start him on doxycycline. Recommend continued wound care with antibiotic ointment and nonstick gauze. Discharge instructions as documented. Departure - Departure Time of Disposition: 13:40 Disposition: Home, Self-Care 01 Condition: Good Clinical Impression: Wound infection - Discharge Information *PRESCRIPTION DRUG MONITORING PROGRAM REVIEWED*: No *COPY OF PRESCRIPTION DRUG MONITORING REPORT IN PATIENT NICOLE: No Prescriptions: Doxycycline [Vibramycin] 100 mg PO BID 10 Days #20 cap Referrals: Adonis Barron MD [Primary Care Provider] - Additional Instructions: You were seen in the emergency department for an infection to a skin tear on your left elbow. You have been started on doxycycline which is an antibiotic. Take this medication as prescribed in its entirety. Continue to wash the wound twice daily with normal soap and water. You may apply antibiotic ointment and nonstick gauze as you have been doing. If you should experience worsening symptoms such as fever, chills, nausea, vomiting or worsening of redness and swelling to the site, we would recommend that you return to the emergency department. Sepsis Event Note (ED) - Evaluation Sepsis Screening Result: No Definite Risk - Focused Exam Vital Signs: Vital Signs Temp Pulse Resp BP Pulse Ox 03/09/20 13:26 97.6 F 69 18 169/93 H 100
== END 2020-03-09 13:50 | disposition home or self-care (01) ==
LOC: JD.ED 13:19
DX: S51.012A Laceration without foreign body of left elbow, initial encounter (principal); L08.9 Local infection of the skin and subcutaneous tissue, unspecified; J44.9 Chronic obstructive pulmonary disease, unspecified; F41.9 Anxiety disorder, unspecified; F03.90 Unspecified dementia, unspecified severity, without behavioral disturbance, psychotic disturbance, mood disturbance, and anxiety; Z98.890 Other specified postprocedural states; Z87.891 Personal history of nicotine dependence; Z79.899 Other long term (current) drug therapy; W19.XXXA Unspecified fall, initial encounter
CPT/HCPCS: 99282; 99283

== ENCOUNTER 2020-07-10 19:29 | Emergency (ER) | payer MEDICARE, BC ==
--- NOTE | 2020-07-10 20:34 | EDM.PDOC ---
ED HPI GENERAL MEDICAL PROBLEM - General Chief Complaint: Respiratory Problem Stated Complaint: HAS COPD/SOB/COUGHING Time Seen by Provider: 07/10/20 20:23 - History of Present Illness INITIAL COMMENTS - FREE TEXT/NARRATIVE: 74-year-old male presents the emergency room with increasing breathing difficulties. This is been going on for a while he has been wheezing more than normal. Patient has advanced COPD. He normally lives on oxygen at 2 to 3 L at home. He has noticed 40 pound weight loss or so over the last several months some of this has been intentional and the patient is noticed he is actually breathing better with this. However something his made him worse over the last several days. He uses albuterol at home and he thinks ipratropium. Patient has not been on steroids or prednisone in a while. [facility]. He has not had any chest pain chest pressure no significant discomfort. Denies nausea or vomiting. concerned that he has some underlying dementia. The patient was quite hypoxic when he came in here however his nasal cannula was sitting on top of his nose with blowing up not into his nose after this was corrected his O2 saturation corrected nicely. - Related Data Allergies Allergy/AdvReac Type Severity Reaction Status Date / Time No Known Allergies Allergy Verified 07/10/20 20:08 Home Meds: Home Meds ALPRAZolam [Xanax] 1 mg PO BID PRN 12/22/15 [History] Tiotropium [Spiriva HandiHaler] 1 puff INH DAILY 12/22/15 [History] Albuterol [Proair HFA] 2 puff INH Q6H PRN 10/28/17 [History] Fluticasone/Vilanterol [Breo Ellipta 100-25 MCG Inhalation Kit] 1 puff INH DAILY 10/28/17 [History] Furosemide [Lasix] 40 mg PO DAILY #30 tab 08/23/18 [Rx] Iron 18 mg PO DAILY 08/23/18 [History] Potassium Chloride 20 meq PO BID #60 tablet.er 08/23/18 [Rx] Cholecalciferol (Vitamin D3) [Vitamin D3] 2,000 unit PO DAILY 12/10/18 [History] Doxycycline [Vibramycin] 100 mg PO BID 10 Days #20 cap 03/09/20 [Rx] buPROPion HCL [Wellbutrin SR] 150 mg PO BID 03/09/20 [History] predniSONE [Prednisone] 40 mg PO Q24H #8 tablet 07/10/20 [Rx] Past Medical History HEENT History: Reports: Impaired Vision Cardiovascular History: Reports: None Respiratory History: Reports: COPD, Sleep Apnea Genitourinary History: Reports: None Musculoskeletal History: Reports: None Neurological History: Reports: None Psychiatric History: Reports: Anxiety, Dementia Endocrine/Metabolic History: Reports: None Hematologic History: Reports: Bleeding Disorder Immunologic History: Reports: None Oncologic (Cancer) History: Reports: None Dermatologic History: Reports: Other (See Below) Other Dermatologic History: Skin bruises easily. - Infectious Disease History Infectious Disease History: Reports: Measles - Past Surgical History GI Surgical History: Reports: Colonoscopy, Other (See Below) Other GI Surgeries/Procedures: Abdominal surgery due to having his colon and intestines punctured by the colonoscopy. Social & Family History - Tobacco Use Tobacco Use Status *Q: Former Tobacco User Years of Tobacco use: 30 Packs/Tins Daily: 1.5 Used Tobacco, but Quit: Yes Month/Year Tobacco Last Used: 15 years ago - Caffeine Use Caffeine Use: Reports: None - Recreational Drug Use Recreational Drug Use: No - Living Situation & Occupation Living situation: Reports: , with Spouse Occupation: Employed ED ROS GENERAL - Review of Systems Review Of Systems: See Below Constitutional: Reports: Weight Loss. Denies: Fever, Chills HEENT: Reports: No Symptoms Respiratory: Reports: Shortness of Breath (Much of this is chronic), Wheezing (The wheezing seems to be getting worse over the last week or so.) Cardiovascular: Reports: No Symptoms. Denies: Chest Pain Endocrine: Reports: No Symptoms GI/Abdominal: Reports: No Symptoms : Reports: No Symptoms Musculoskeletal: Reports: No Symptoms Skin: Reports: No Symptoms Neurological: Reports: No Symptoms Psychiatric: Reports: No Symptoms Hematologic/Lymphatic: Reports: No Symptoms Immunologic: Reports: No Symptoms ED EXAM, GENERAL - Physical Exam Exam: See Below Exam Limited By: No Limitations General Appearance: Alert, No Apparent Distress Eye Exam: Bilateral Eye: Normal Inspection Ears: Normal External Exam, Normal Canal, Hearing Grossly Normal, Normal TMs Nose: Normal Inspection, Normal Mucosa, No Blood, Other (No sinus tenderness with percussion) Throat/Mouth: Normal Inspection, Normal Lips, Normal Gums, Normal Oropharynx, Normal Voice, No Airway Compromise Head: Atraumatic, Normocephalic Neck: Normal Inspection, Supple, Non-Tender, Full Range of Motion. No: Lymphadenopathy (L), Lymphadenopathy (R) Respiratory/Chest: No Respiratory Distress, Lungs Clear, Normal Breath Sounds, No Accessory Muscle Use, Chest Non-Tender, Decreased Breath Sounds Cardiovascular: Regular Rate, Rhythm, No Edema, No Murmur GI/Abdominal: Normal Bowel Sounds, Soft, Non-Tender, No Organomegaly, No Distention, No Abnormal Bruit, No Mass Back Exam: Normal Inspection. No: CVA Tenderness (L), CVA Tenderness (R) Extremities: Normal Inspection, Normal Range of Motion, Non-Tender Neurological: Alert, Oriented, Normal Cognition Course - Vital Signs Last Recorded V/S: Last Vital Signs Temp 37.0 C 07/10/20 20:08 Pulse 73 07/10/20 21:46 Resp 18 07/10/20 21:03 BP 124/77 07/10/20 21:46 Pulse Ox 97 07/10/20 21:46 - Orders/Labs/Meds Orders: Active Orders 24 hr Category Date Time Status EKG Documentation Completion [RC] STAT Care 07/10/20 20:37 Active RT Aerosol Therapy [RC] ASDIRECTED Care 07/10/20 20:38 Active Chest 1V Frontal [CR] Stat Exams 07/10/20 20:36 Taken CORONAVIRUS COVID-19 PCR PHL Stat Lab 07/10/20 21:02 Received Labs: Laboratory Tests 07/10/20 07/10/20 Range/Units 20:11 20:11 WBC 5.95 (4.23-9.07) K/mm3 RBC 3.04 L (4.63-6.08) M/mm3 Hgb 10.3 L (13.7-17.5) gm/dl Hct 33.2 L (40.1-51.0) % MCV 109.2 H (79.0-92.2) fl MCH 33.9 H (25.7-32.2) pg MCHC 31.0 L (32.2-35.5) g/dl RDW Std Deviation 64.4 H (35.1-43.9) fL Plt Count 215 (163-337) K/mm3 MPV 8.9 L (9.4-12.3) fl Neut % (Auto) 72.7 H (34.0-67.9) % Lymph % (Auto) 11.1 L (21.8-53.1) % [place] % (Auto) 14.5 H (5.3-12.2) % Eos % (Auto) 1.0 (0.8-7.0) Baso % (Auto) 0.2 (0.1-1.2) % Neut # (Auto) 4.33 (1.78-5.38) K/mm3 Lymph # (Auto) 0.66 L (1.32-3.57) K/mm3 [place] # (Auto) 0.86 H (0.30-0.82) K/mm3 Eos # (Auto) 0.06 (0.04-0.54) K/mm3 Baso # (Auto) 0.01 (0.01-0.08) K/mm3 Manual Slide Review Abnormal smear Sodium 143 (136-145) mEq/L Potassium 3.7 (3.5-5.1) mEq/L Chloride 105 (98-107) mEq/L Carbon Dioxide 31 (21-32) mEq/L Anion Gap 10.7 (5-15) BUN 16 (7-18) mg/dL Creatinine 1.0 (0.7-1.3) mg/dL Est Cr Clr Drug Dosing 69.03 mL/min Estimated GFR (MDRD) > 60 (>60) mL/min BUN/Creatinine Ratio 16.0 (14-18) Glucose 106 (83-115) mg/dL Calcium 9.0 (8.5-10.1) mg/dL Total Bilirubin 0.8 (0.2-1.0) mg/dL AST 23 (15-37) U/L ALT 28 (16-63) U/L Alkaline Phosphatase 82 (46-116) U/L Troponin I 0.021 (0.00-0.056) ng/mL Total Protein 7.3 (6.4-8.2) g/dl Albumin 3.9 (3.4-5.0) g/dl Globulin 3.4 gm/dL Albumin/Globulin Ratio 1.2 (1-2) Meds: Medications Discontinued Medications Generic Name Dose Route Start Last Admin Trade Name Freq PRN Reason Stop Dose Admin Albuterol/Ipratropium 3 ml 07/10/20 20:37 07/10/20 20:55 Duoneb 3.0-0.5 Mg/3 Ml NEB 07/10/20 20:38 3 ml ONETIME ONE Administration Prednisone 60 mg 07/10/20 20:37 07/10/20 21:01 Prednisone PO 07/10/20 20:38 60 mg ONETIME ONE Administration - Re-Assessments/Exams Free Text/Narrative Re-Assessment/Exam: 07/10/20 22:14 Chest x-ray shows mild hyperinflation somewhat flattened diaphragm questionable developing infiltrate in the left lower lobe looks viral. Chest x-ray slightly rotated which could enhance this. Patient is doing much better after single nebulizer treatment he received 60 mg of oral prednisone. I am not can start him on antibiotics at this point his biggest complaint is just wheezier than normal his cough albeit is productive but this is a normal state for him. Covid testing is pending he will use his albuterol nebulizer every 4-6 hours while awake he will be placed on prednisone 40 mg every morning [facility] Departure - Departure Time of Disposition: 22:15 Disposition: Home, Self-Care 01 Clinical Impression: COPD exacerbation COPD (chronic obstructive pulmonary disease) Qualifiers: COPD type: unspecified COPD Qualified Code(s): J44.9 - Chronic obstructive pulmonary disease, unspecified - Discharge Information Prescriptions: predniSONE [Prednisone] 40 mg PO Q24H #8 tablet Referrals: Amada Bennett MD [Primary Care Provider] - Forms: ED Department Discharge Additional Instructions: Return to the emergency room with any questions problems or worsening symptoms. Your Covid results will hopefully be back before the end of this week.. Use your albuterol nebulizer treatments every 4-6 hours while awake. Take the prednisone 2 tablets every morning starting morning until all gone. If your Covid comes back negative follow-up in the clinic early this next week. Sepsis Event Note (ED) - Evaluation Sepsis Screening Result: No Definite Risk - Focused Exam Vital Signs: Vital Signs Temp Pulse Resp BP Pulse Ox 07/10/20 21:46 73 124/77 97 07/10/20 21:03 72 18 109/60 93 L 07/10/20 20:08 37.0 C 77 17 141/74 H 57 L - My Orders Last 24 Hours: My Active Orders 07/10/20 20:36 Chest 1V Frontal [CR] Stat 07/10/20 20:37 EKG Documentation Completion [RC] STAT 07/10/20 20:38 RT Aerosol Therapy [RC] ASDIRECTED 07/10/20 21:02 CORONAVIRUS COVID-19 PCR PHL Stat - Assessment/Plan Last 24 Hours: My Active Orders 07/10/20 20:36 Chest 1V Frontal [CR] Stat 07/10/20 20:37 EKG Documentation Completion [RC] STAT 07/10/20 20:38 RT Aerosol Therapy [RC] ASDIRECTED 07/10/20 21:02 CORONAVIRUS COVID-19 PCR PHL Stat
[2020-07-10] MEDS ORDERED: predniSONE 20 MG Tab PO ONE (20:37)
[2020-07-10] MEDS ORDERED: Albuterol/Ipratropium 3.0-0.5 MG/3 ML Neb Soln NEB ONE (20:37)
[2020-07-10 22:44] VITALS: BP 127/57; PULSE 71
--- NOTE | 2020-07-11 13:14 | CR ---
Chest: Portable view of the chest was obtained. Comparison: Prior chest x-ray of 02/21/20. Findings: Heart and mediastinum: Slight tortuosity of the thoracic aorta is seen. Heart size is normal for portable technique. Lungs: Lung markings are mildly increased within the left base as an interval change from prior study. Lung markings are also slightly increased within the right upper lung as an interval change. Lungs otherwise are clear. Osseous: No discrete acute osseous findings are seen. Impression: 1. Slight increased lung markings within the left base as well as minimal change within the right upper lung. Please correlate if patient has any symptoms of bronchitis. 2. No additional abnormality is seen. Diagnostic code #3
== END 2020-07-10 22:55 | disposition home or self-care (01) ==
LOC: JD.ED 19:29
DX: J44.1 Chronic obstructive pulmonary disease with (acute) exacerbation (principal); F41.9 Anxiety disorder, unspecified; F03.90 Unspecified dementia, unspecified severity, without behavioral disturbance, psychotic disturbance, mood disturbance, and anxiety; Z87.891 Personal history of nicotine dependence; Z79.899 Other long term (current) drug therapy; Z20.828 Contact with and (suspected) exposure to other viral communicable diseases
CPT/HCPCS: 36415; 71045; 80053; 84484; 85025; 93005; 94640; 99285; J7512; U0002; 93010; 99284; J7620-GY

== ENCOUNTER 2020-08-21 15:49 | Emergency (ER) | payer MEDICARE, BC ==
[2020-08-21 16:05] VITALS: BP 121/68; PULSE 79
[2020-08-21] MEDS ORDERED: Sodium Chloride 0.9% 10 ML Syringe FLUSH PRN (16:31)
[2020-08-21] MEDS ORDERED: Albuterol 0.083% 2.5 MG/3 ML Neb Soln NEB ONE (16:33)
--- NOTE | 2020-08-21 17:01 | EDM.PDOC ---
ED HPI GENERAL MEDICAL PROBLEM - General Chief Complaint: Respiratory Problem Stated Complaint: COUGH/WEAKNESS Time Seen by Provider: 08/21/20 15:54 Source of Information: Reports: Patient, Family History Limitations: Reports: No Limitations - History of Present Illness INITIAL COMMENTS - FREE TEXT/NARRATIVE: 74-year-old male presents to the emergency department with complaints of increasing shortness of breath and weakness over the last several days. Patient's states that patient's O2 saturations when at home on 3 L per nasal cannula dropped down as low as 45% when he is up and ambulating to the bathroom. She states that their house is quite small so he does not have that far to ambulate. She also states that about 3 weeks ago the patient was in to see Dr. Barron in his Lasix was discontinued at that time. Patient does have a significant history of COPD. She states that he generally takes his albuterol nebulizer 4 times a day however he is only had it once today as they had appointments. She states he has lost a significant amount of weight in the last few months of approximately 40 pounds. She denies any fevers or chills. Does note he has been having an increased cough with sputum production. Denies nausea vomiting diarrhea. She states that since discontinuing the Lasix she has noticed an increase in the swelling in his lower legs and ankles. Onset: Gradual - Related Data Allergies Allergy/AdvReac Type Severity Reaction Status Date / Time No Known Allergies Allergy Verified 08/21/20 16:05 Home Meds: Home Meds ALPRAZolam [Xanax] 0.5 mg PO BID PRN 12/22/15 [History] Tiotropium [Spiriva HandiHaler] 1 puff INH DAILY 12/22/15 [History] Albuterol [Proair HFA] 2 puff INH Q6H PRN 10/28/17 [History] Fluticasone/Vilanterol [Breo Ellipta 100-25 MCG Inhalation Kit] 1 puff INH DAILY 10/28/17 [History] Iron 18 mg PO DAILY 08/23/18 [History] Potassium Chloride 20 meq PO BID #60 tablet.er 08/23/18 [Rx] Cholecalciferol (Vitamin D3) [Vitamin D3] 2,000 unit PO DAILY 12/10/18 [History] buPROPion HCL [Wellbutrin SR] 150 mg PO BID 03/09/20 [History] Past Medical History HEENT History: Reports: Impaired Vision Cardiovascular History: Reports: Heart Failure Respiratory History: Reports: COPD, Sleep Apnea Genitourinary History: Reports: None Musculoskeletal History: Reports: None Neurological History: Reports: None Psychiatric History: Reports: Anxiety, Dementia Endocrine/Metabolic History: Reports: None Hematologic History: Reports: Bleeding Disorder Other Hematologic History: cannot remember name. Immunologic History: Reports: None Oncologic (Cancer) History: Reports: None Dermatologic History: Reports: Other (See Below) Other Dermatologic History: Skin bruises easily. - Infectious Disease History Infectious Disease History: Reports: Measles - Past Surgical History GI Surgical History: Reports: Colonoscopy, Other (See Below) Other GI Surgeries/Procedures: Abdominal surgery due to having his colon and intestines punctured by the colonoscopy. Social & Family History - Family History Family Medical History: No Pertinent Family History - Tobacco Use Tobacco Use Status *Q: Former Tobacco User Years of Tobacco use: 20 Used Tobacco, but Quit: Yes Month/Year Tobacco Last Used: 2004 - Caffeine Use Caffeine Use: Reports: Coffee - Recreational Drug Use Recreational Drug Use: No - Living Situation & Occupation Living situation: Reports: , with Spouse Occupation: Employed ED ROS GENERAL - Review of Systems Review Of Systems: See Below Constitutional: Reports: Weight Loss (Patient's reports 40 pounds over the last 3 to 4 months.). Denies: Fever, Chills HEENT: Reports: Rhinitis, Sinus Problem Respiratory: Reports: Shortness of Breath, Wheezing, Cough, Sputum. Denies: Pleuritic Chest Pain Cardiovascular: Reports: Dyspnea on Exertion, Edema. Denies: Chest Pain, Lightheadedness, Orthopnea, Palpitations, Syncope Endocrine: Reports: No Symptoms GI/Abdominal: Reports: No Symptoms : Reports: No Symptoms Musculoskeletal: Reports: No Symptoms Skin: Reports: No Symptoms Neurological: Reports: Confusion (Patient does have a history of dementia) Psychiatric: Reports: No Symptoms Hematologic/Lymphatic: Reports: No Symptoms Immunologic: Reports: No Symptoms ED EXAM, GENERAL - Physical Exam Exam: See Below Exam Limited By: No Limitations General Appearance: Alert, WD/WN, Mild Distress (Patient is mildly dyspneic while laying in bed.) Eye Exam: Bilateral Eye: PERRL Ears: Hearing Grossly Normal Nose: Normal Inspection Throat/Mouth: Normal Inspection, Normal Lips, Normal Voice, No Airway Compromise Head: Atraumatic, Normocephalic Neck: Normal Inspection, Supple, Non-Tender, Full Range of Motion Respiratory/Chest: No Respiratory Distress, Chest Non-Tender, Crackles (Inspiratory crackles anteriorly), Wheezing (Expiratory wheezing noted ant eriorly and posterior), Accessory Muscle Use, Prolonged Expiration. No: Lungs Clear, Normal Breath Sounds, No Accessory Muscle Use Cardiovascular: Normal Peripheral Pulses, Regular Rate, Rhythm, No Murmur. No: No Edema (2+ pretibial, 2+ bilateral feet and ankles) Peripheral Pulses: 2+: Radial (L), Radial (R) GI/Abdominal: Normal Bowel Sounds, Soft, Non-Tender, No Distention (Male) Exam: Deferred Rectal (Males) Exam: Deferred Back Exam: Normal Inspection, Full Range of Motion Extremities: Normal Inspection, Normal Range of Motion, Non-Tender, Normal Capillary Refill, Pedal Edema (2+ pitting to bilateral lower extremities) Neurological: Alert, Oriented, Normal Cognition Psychiatric: Normal Affect, Normal Mood Skin Exam: Warm, Dry, Intact, Normal Color, No Rash Lymphatic: No Adenopathy #1 Interpretation EKG Date: 08/21/20 Time: 16:58 Rhythm: NSR Rate (Beats/Min): 75 [place]: RAD-Right [place] Deviation P-Wave: Present QRS: Normal ST-T: Normal QT: Normal Course - Vital Signs Text/Narrative:: 74-year-old male presents to the emergency department complaints of increased shortness of breath, increased cough with sputum production, increased O2 needs as patient is generally on oxygen at 3 L per nasal cannula at home however most recently over the last couple of days he has been up to 4-1/2 L. Patient's reports that his O2 saturations dropped as low as 45% when he is up and ambulating in the home with his oxygen on. Recently did have his Lasix discontinued approximately 3 weeks ago and patient and his have both noticed increased shortness of breath and swelling in his bilateral lower legs and ankles. Upon assessment patient does have inspiratory crackles anteriorly with expiratory wheezes. Posteriorly he is got expiratory wheezes noted to all hi. I have ordered an albuterol nebulizer for this. Patient has 2+ pitting edema pretibial as well as bilateral feet and ankles. Abdomen is soft and nontender bowel tones are positive. I have ordered a CBC, CMP, CRP, troponin, proBNP, UA with micro, and a portable chest x-ray. I have also ordered a albuterol nebulizer treatment. Last Recorded V/S: Last Vital Signs Temp 98.3 F 08/21/20 16:01 Pulse 79 08/21/20 16:01 Resp 16 08/21/20 16:01 BP 121/68 08/21/20 16:01 Pulse Ox 94 L 08/21/20 16:01 - Orders/Labs/Meds Orders: Active Orders 24 hr Category Date Time Status EKG Documentation Completion [RC] STAT Care 08/21/20 16:32 Active RT Aerosol Therapy [RC] ASDIRECTED Care 08/21/20 16:33 Active CORONAVIRUS COVID-19 NIRU [MOLEC] Stat Lab 08/21/20 18:15 Received Sodium Chloride 0.9% [Saline Flush] Med 08/21/20 16:31 Active 10 ml FLUSH ASDIRECTED PRN Saline Lock Insert [OM.PC] Stat Oth 08/21/20 16:31 Ordered Medication Orders Sodium Chloride (Saline Flush) 10 ml FLUSH ASDIRECTED PRN PRN Reason: Keep Vein Open Last Admin: 08/21/20 17:13 Dose: 10 ml Documented by: RUEL Labs: Laboratory Tests 08/21/20 08/21/20 08/21/20 Range/Units 17:05 17:05 17:05 WBC 4.97 (4.23-9.07) K/mm3 RBC 2.78 L (4.63-6.08) M/mm3 Hgb 8.6 L D (13.7-17.5) gm/dl Hct 29.3 L (40.1-51.0) % MCV 105.4 H D (79.0-92.2) fl MCH 30.9 (25.7-32.2) pg MCHC 29.4 L (32.2-35.5) g/dl RDW Std Deviation 80.2 H (35.1-43.9) fL Plt Count 193 (163-337) K/mm3 MPV 9.5 (9.4-12.3) fl Neut % (Auto) 79.7 H (34.0-67.9) % Lymph % (Auto) 8.2 L (21.8-53.1) % [place] % (Auto) 10.3 (5.3-12.2) % Eos % (Auto) 0.8 (0.8-7.0) Baso % (Auto) 0.2 (0.1-1.2) % Neut # (Auto) 3.96 (1.78-5.38) K/mm3 Lymph # (Auto) 0.41 L (1.32-3.57) K/mm3 [place] # (Auto) 0.51 (0.30-0.82) K/mm3 Eos # (Auto) 0.04 (0.04-0.54) K/mm3 Baso # (Auto) 0.01 (0.01-0.08) K/mm3 Manual Slide Review Abnormal smear Puncture Site ABG pH (7.35-7.45) ABG pCO2 (35.0-45.0) mmHg ABG pO2 (80.0-100.0) mmHg ABG HCO3 (22.0-26.0) meq/L ABG O2 Saturation (96.0-97.0) % ABG Base Excess (-2-2.0) Elio Test A-a Gradient mmHg O2 Delivery Device Oxygen Flow Rate FiO2 (21.00-100.00) % Sodium 145 (136-145) mEq/L Potassium 3.6 (3.5-5.1) mEq/L Chloride 107 (98-107) mEq/L Carbon Dioxide 34 H (21-32) mEq/L Anion Gap 7.6 (5-15) BUN 23 H (7-18) mg/dL Creatinine 1.2 (0.7-1.3) mg/dL Est Cr Clr Drug Dosing TNP Estimated GFR (MDRD) 59 (>60) mL/min BUN/Creatinine Ratio 19.2 H (14-18) Glucose 98 (83-115) mg/dL Calcium 8.9 (8.5-10.1) mg/dL Magnesium 2.2 (1.8-2.4) mg/dl Total Bilirubin 0.8 (0.2-1.0) mg/dL AST 36 (15-37) U/L ALT 70 H (16-63) U/L Alkaline Phosphatase 69 (46-116) U/L Troponin I 0.471 H* (0.00-0.056) ng/mL C-Reactive Protein 4.0 H* (<1.0) mg/dL NT-Pro-B Natriuret Pep 3237 H (0-125) pg/mL Total Protein 5.9 L (6.4-8.2) g/dl Albumin 2.8 L (3.4-5.0) g/dl Globulin 3.1 gm/dL Albumin/Globulin Ratio 0.9 L (1-2) Urine Color (Yellow) Urine Appearance (Clear) Urine pH (5.0-8.0) Ur Specific [place] (1.005-1.030) Urine Protein (Negative) Urine Glucose (UA) (Negative) Urine Ketones (Negative) Urine Occult Blood (Negative) Urine Nitrite (Negative) Urine Bilirubin (Negative) Urine Urobilinogen (0.2-1.0) Ur Leukocyte Esterase (Negative) Urine RBC (0-5) /hpf Urine WBC (0-5) /hpf Ur Squamous Epith Cells (0-5) /hpf Urine Bacteria (FEW) /hpf Urine Mucus (FEW) /hpf 08/21/20 08/21/20 Range/Units 17:58 18:25 WBC (4.23-9.07) K/mm3 RBC (4.63-6.08) M/mm3 Hgb (13.7-17.5) gm/dl Hct (40.1-51.0) % MCV (79.0-92.2) fl MCH (25.7-32.2) pg MCHC (32.2-35.5) g/dl RDW Std Deviation (35.1-43.9) fL Plt Count (163-337) K/mm3 MPV (9.4-12.3) fl Neut % (Auto) (34.0-67.9) % Lymph % (Auto) (21.8-53.1) % [place] % (Auto) (5.3-12.2) % Eos % (Auto) (0.8-7.0) Baso % (Auto) (0.1-1.2) % Neut # (Auto) (1.78-5.38) K/mm3 Lymph # (Auto) (1.32-3.57) K/mm3 [place] # (Auto) (0.30-0.82) K/mm3 Eos # (Auto) (0.04-0.54) K/mm3 Baso # (Auto) (0.01-0.08) K/mm3 Manual Slide Review Puncture Site Rt radial ABG pH 7.39 (7.35-7.45) ABG pCO2 51.8 H (35.0-45.0) mmHg ABG pO2 59.0 L (80.0-100.0) mmHg ABG HCO3 30.5 H (22.0-26.0) meq/L ABG O2 Saturation 88.1 L (96.0-97.0) % ABG Base Excess 5.3 H (-2-2.0) Elio Test Positive A-a Gradient 133 mmHg O2 Delivery Device Nasal cannula Oxygen Flow Rate 4.0 FiO2 36.00 (21.00-100.00) % Sodium (136-145) mEq/L Potassium (3.5-5.1) mEq/L Chloride (98-107) mEq/L Carbon Dioxide (21-32) mEq/L Anion Gap (5-15) BUN (7-18) mg/dL Creatinine (0.7-1.3) mg/dL Est Cr Clr Drug Dosing Estimated GFR (MDRD) (>60) mL/min BUN/Creatinine Ratio (14-18) Glucose (83-115) mg/dL Calcium (8.5-10.1) mg/dL Magnesium (1.8-2.4) mg/dl Total Bilirubin (0.2-1.0) mg/dL AST (15-37) U/L ALT (16-63) U/L Alkaline Phosphatase (46-116) U/L Troponin I (0.00-0.056) ng/mL C-Reactive Protein (<1.0) mg/dL NT-Pro-B Natriuret Pep (0-125) pg/mL Total Protein (6.4-8.2) g/dl Albumin (3.4-5.0) g/dl Globulin gm/dL Albumin/Globulin Ratio (1-2) Urine Color Yellow (Yellow) Urine Appearance Clear (Clear) Urine pH 6.0 (5.0-8.0) Ur Specific [place] > or = 1.030 (1.005-1.030) Urine Protein 1+ H (Negative) Urine Glucose (UA) Negative (Negative) Urine Ketones Negative (Negative) Urine Occult Blood Negative (Negative) Urine Nitrite Negative (Negative) Urine Bilirubin Negative (Negative) Urine Urobilinogen 0.2 (0.2-1.0) Ur Leukocyte Esterase Negative (Negative) Urine RBC 0-5 (0-5) /hpf Urine WBC 0-5 (0-5) /hpf Ur Squamous Epith Cells 0-5 (0-5) /hpf Urine Bacteria Few (FEW) /hpf Urine Mucus Moderate H (FEW) /hpf Meds: Medications Generic Name Dose Route Start Last Admin Trade Name Freq PRN Reason Stop Dose Admin Sodium Chloride 10 ml 08/21/20 16:31 08/21/20 17:13 Saline Flush FLUSH 10 ml ASDIRECTED PRN Administration Keep Vein Open Discontinued Medications Generic Name Dose Route Start Last Admin Trade Name Freq PRN Reason Stop Dose Admin Albuterol 2.5 mg 08/21/20 16:33 08/21/20 17:00 Proventil Neb Soln NEB 08/21/20 16:34 2.5 mg ONETIME ONE Administration Furosemide 40 mg 08/21/20 17:34 08/21/20 18:17 Lasix IVPUSH 08/21/20 17:35 40 mg NOW ONE Administration - Re-Assessments/Exams Free Text/Narrative Re-Assessment/Exam: 08/21/20 17:14 Portable chest xray radiologist impression: Increased lung markings are seen on both sides which are an interval change from prior exam, heart size is felt to be slightly enlarged. Findings raise the possibility of CHF. Slight atelectasis is seen with the left lung base. Osseous structures show nothing acute. 08/21/20 17:35 I have ordered 40 mg of Lasix IV for this patient. 08/21/20 17:38 Patient's O2 saturations are 84% on 4 L per nasal cannula. I have also ordered arterial blood gases to be drawn on this patient. Upon visualization patient is alert and watching TV and is mildly dyspneic. 08/21/20 18:09 Labs reveal WBC 4.97, hemoglobin 8.6, hematocrit 29.3, MCV 105.4, sodium 145, potassium 3.6, carbon dioxide 34, anion gap 7.6, BUN 23, creatinine 1.2, GFR 59, ALT 70, troponin 0 0.471, C-reactive protein 4.0, proBNP 3237, I suspect the patient's troponin is elevated due to the patient's congestive heart failure as he denies having any chest pain and there is no elevation or depression noted on EKG. Patient's reports that he has some kind of "blood disorder "however his hemoglobin has never been this low in his recent visits. I did do a rectal exam for occult stool and this did come back negative for occult blood. ABGs reveal a pH of 7.39, PCO2 of 51.8, PO2 of 59, bicarb 30.5. With these results I have increased the patient's oxygen to 4-1/2 L per nasal cannula. I feel this patient does need to be admitted for chf exacerbation so I will dean ne Dr. Bentley. 08/21/20 18:[address] Bentley and he did not answer so I left a message for him to return my call. 08/21/20 18:52 Dr. Jefferson did not feel comfortable excepting care of this patient. I phoned [facility] and Dr. Funes has accepted care of the patient he will be transferred via ambulance with CPAP at 10. Dr. Velasco requested BiPAP however [facility] does not have a BiPAP. Departure - Departure Time of Disposition: 18:56 Disposition: DC/Tfer to Acute Hospital 02 Condition: Poor Clinical Impression: CHF exacerbation Qualifiers: Heart failure type: unspecified Qualified Code(s): I50.9 - Heart failure, unspecified Congestive heart failure Qualifiers: Heart failure type: combined systolic and diastolic Heart failure chronicity: acute Qualified Code(s): I50.41 - Acute combined systolic (congestive) and diastolic (congestive) heart failure - Discharge Information Referrals: Amada Bennett MD [Primary Care Provider] - Forms: ED Department Discharge Sepsis Event Note (ED) - Evaluation Sepsis Screening Result: No Definite Risk - Focused Exam Vital Signs: Vital Signs Temp Pulse Resp BP Pulse Ox 08/21/20 16:01 98.3 F 79 16 121/68 94 L - My Orders Last 24 Hours: My Active Orders 08/21/20 16:31 Sodium Chloride 0.9% [Saline Flush] 10 ml FLUSH ASDIRECTED PRN Saline Lock Insert [OM.PC] Stat 08/21/20 16:32 EKG Documentation Completion [RC] STAT 08/21/20 16:33 RT Aerosol Therapy [RC] ASDIRECTED 08/21/20 18:15 CORONAVIRUS COVID-19 NIRU [MOLEC] Stat - Assessment/Plan Last 24 Hours: My Active Orders 08/21/20 16:31 Sodium Chloride 0.9% [Saline Flush] 10 ml FLUSH ASDIRECTED PRN Saline Lock Insert [OM.PC] Stat 08/21/20 16:32 EKG Documentation Completion [RC] STAT 08/21/20 16:33 RT Aerosol Therapy [RC] ASDIRECTED 08/21/20 18:15 CORONAVIRUS COVID-19 NIRU [MOLEC] Stat
--- NOTE | 2020-08-21 17:04 | CR ---
Chest: Portable view of the chest was obtained. Comparison: Prior chest x-ray of 07/10/20. Findings: Increased lung markings are seen on both sides which are an interval change from prior exam. Heart size is felt to be slightly enlarged. Findings raise the possibility of CHF. Slight atelectasis is seen with the left lung base. Osseous structures show nothing acute. Impression: 1. Findings suspicious for CHF. Please correlate if this matches clinically. Diagnostic code #3
[2020-08-21] MEDS ORDERED: Furosemide 40 MG/4 ML VIAL IVPUSH ONE (17:34)
== END 2020-08-21 20:00 ==
LOC: JD.ED 15:49
DX: I50.41 Acute combined systolic (congestive) and diastolic (congestive) heart failure (principal); J44.9 Chronic obstructive pulmonary disease, unspecified; F03.90 Unspecified dementia, unspecified severity, without behavioral disturbance, psychotic disturbance, mood disturbance, and anxiety; Z87.891 Personal history of nicotine dependence; Z79.899 Other long term (current) drug therapy
CPT/HCPCS: 36415; 36600; 71045; 80053; 81001; 82803; 83735; 83880; 84484; 85025; 86140; 93005; 94640; 96374; 99285; J1940; U0002; 93010

== ENCOUNTER 2021-01-22 11:38 | Inpatient (IN) | payer OTHER, MEDICARE, BC ==
--- NOTE | 2021-01-22 12:19 | EDM.PDOC ---
ED HPI GENERAL MEDICAL PROBLEM - General Chief Complaint: Respiratory Problem Stated Complaint: [facility] Time Seen by Provider: 01/22/21 12:00 Source of Information: Reports: Patient, EMS History Limitations: Reports: Altered Mental Status, Other (Peers to have been impaired short-term memory and carries a history of dementia. Temperature is 36.9 but he feels much warmer than this. Heart rate was 147 to 152/min and shows atrial fibrillation on the monitor. Respiratory was 27 to 30/min with O2 sats of 99% on 3 L/min by nasal cannula. BP 13) - History of Present Illness INITIAL COMMENTS - FREE TEXT/NARRATIVE: Pleasant elderly male who is confused. He is disoriented to time and place. His daughter had not heard from him for a few days and went to check on him. She found him seated on the kitchen floor beside the table with no apparent injuries but off of his oxygen. He is normally on oxygen at 3 L/min by nasal cannula. Apparently he has like 85 feet of holes traveling throughout his house which would make it impossible for him to get any oxygen at that length of holes. He has a history of congestive heart failure and COPD. He presents with a heart rate in the 1 48-1 52 range which appears to be atrial fibrillation. He has multiple ecchymoses on both upper extremities worse on the left dorsal hand and forearm. His history is unreliable due to his dementia. His O2 sats are 98 to 99% on 3 L/min by nasal cannula in the ED. He certainly feels very warm to palpation. Patient states he does have a cane and a walker at home but usually at home he does not use them in his home. Only uses them when he goes outside of his home. Onset: Unknown/Unsure (Daughter last seen him 3 days ago and he was doing okay at that time.) Duration: Getting Worse Location: Reports: Chest (Chronic COPD with hypoxemia on room air.), Other (Generalized weakness. Found to be febrile in the ED. He did not recognize this and denies having any fever or chills. Is unclear when he ate last. Appears volume depleted. He also appears to be in congestive heart failure) Quality: Reports: Other Severity: Severe (Dyspnea on minimal exertion.) Improves with: Reports: None Worsens with: Reports: Movement (Trying to walk) - Related Data Allergies Allergy/AdvReac Type Severity Reaction Status Date / Time No Known Allergies Allergy Verified 01/22/21 11:58 Home Meds: Home Meds ALPRAZolam [Xanax] 0.5 mg PO BID 01/22/21 [History] Albuterol Sulfate 2.5 mg NEB Q4H PRN 01/22/21 [History] Albuterol Sulfate [Albuterol Sulfate HFA] 2 puff INH Q4H PRN 01/22/21 [History] Aspirin [Aspirin EC] 81 mg PO Q24H 01/22/21 [History] Budesonide/Formoterol Fumarate [Budesonide-Formoterol 160-4.5] 2 puff IH BID 01/22/21 [History] Cholecalciferol (Vitamin D3) [Vitamin D3] 1,000 unit PO DAILY 01/22/21 [History] Furosemide 40 mg PO QAM 01/22/21 [History] Ibuprofen 200 mg PO Q6H PRN 01/22/21 [History] Rosuvastatin Calcium 20 mg PO DAILY 01/22/21 [History] Sertraline [Zoloft] 75 mg PO DAILY 01/22/21 [History] buPROPion HCL [Bupropion Xl] 150 mg PO QAM 01/22/21 [History] guaiFENesin [Mucinex] 600 mg PO Q24H 01/22/21 [History] Past Medical History HEENT History: Reports: Impaired Vision Cardiovascular History: Reports: Heart Failure Respiratory History: Reports: COPD, Sleep Apnea Genitourinary History: Reports: None Musculoskeletal History: Reports: None Neurological History: Reports: None Psychiatric History: Reports: Anxiety, Dementia Endocrine/Metabolic History: Reports: None Hematologic History: Reports: Bleeding Disorder Other Hematologic History: cannot remember name. Immunologic History: Reports: None Oncologic (Cancer) History: Reports: None Dermatologic History: Reports: Other (See Below) Other Dermatologic History: Skin bruises easily. - Infectious Disease History Infectious Disease History: Reports: Measles - Past Surgical History GI Surgical History: Reports: Colonoscopy, Other (See Below) Other GI Surgeries/Procedures: Abdominal surgery due to having his colon and intestines punctured by the colonoscopy. Social & Family History - Family History Family Medical History: No Pertinent Family History - Caffeine Use Caffeine Use: Reports: Coffee - Living Situation & Occupation Living situation: Reports: , with Spouse Occupation: Employed Social History Comment: Patient is still but going through a very nasty divorce. His does not live in the same home as him but still checks a now on him every few days alternating with her daughter. ED ROS GENERAL - Review of Systems Review Of Systems: Unable To Obtain Reason Not Obtained: Unable to obtain with any degree of certainty due to underlying d ED EXAM, GENERAL - Physical Exam Exam: See Below Exam Limited By: Altered Mental Status (Patient is pleasantly confused. You can tell that he tries to answer yes to most questions but is uncertain.) General Appearance: No Apparent Distress, Other (Patient is definitely very warm to palpation. Recorded temperature is 36.9 but a rectal temperature will be obtained. Heart rate is 147-159 revealing rapid atrial fibrillation. Respiratory is 27 to 30/min with O2 sats of 98% on 3 L/min by nasal cannula. BP 132/85 initially. It then fell to 91 o) Eye Exam: Bilateral Eye: Normal Inspection (Mild blepharal pallor. No scleral icterus.), PERRL Nose: Normal Inspection Throat/Mouth: Other (Tongue is dry and coated and shriveled. Bits and pieces of food product are still on his tongue. The oropharynx is otherwise showing no signs of infection.) Head: Atraumatic, Normocephalic, Other (No outward signs of head or facial trauma.) Neck: Normal Inspection, Limited Range of Motion, Tender Lateral. No: Carotid Bruit, Lymphadenopathy (L), Lymphadenopathy (R) Respiratory/Chest: Respiratory Distress (Tachypnea at rest of 30/min.), Decreased Breath Sounds (Creased air entry to the lower 30% of lung hi bilaterally.), Rales ( throughout both of both upper anterior lobes. Rales throughout both lower lobes with), Rhonchi (Rhonchi). No: Lungs Clear, Normal Breath Sounds, Wheezing Cardiovascular: No Gallop ( around 150/min.), No Murmur (No murmurs were appreciated but they could possibly be obscured by ), Tachycardia (Tachycardia. Monitor shows atrial fibrillation with rapid ventricular rate). No: Normal Peripheral Pulses, Regular Rate, Rhythm (adventitial sounds.), No Edema Peripheral Pulses: 1+: Posterior Tibial (L), Posterior Tibial (R), Dorsalis Pedis (L), Dorsalis Pedis (R), 2+: Carotid (L), Carotid (R) GI/Abdominal: Normal Bowel Sounds, Soft, Non-Tender, No Organomegaly, Distended (Mild tympany to percussion epigastrium combined with ), Abnormal Bowel Sounds, Other (He has a midline laparotomy wound for which he does not know why.). No: Guarding, Rigid, Rebound, Tender (Male) Exam: No Hernia (Positive cough and pulses bilaterally but no definite hernia lying supine.) Back Exam: Normal Inspection, Full Range of Motion, Other (No bruises or contusions to the thoracic or lumbar spine any done denies any pain on firm palpation of both.). No: CVA Tenderness (L), CVA Tenderness (R) Extremities: Normal Range of Motion, Pedal Edema (Trace pedal edema both lower extremities.), Other (He has evidence of venous stasis dermatitis both lower extremities slightly worse on the left as compared to the right. No evidence of significant arthritis in his knees. Very minimal loss of external rotation both hips) Neurological: Alert, CN II-XII Intact, No Motor/Sensory Deficits. No: Oriented (Is oriented to time and place.), Normal Gait (Not able to assess.) Psychiatric: Normal Affect, Normal Mood Skin Exam: Warm, Dry, Intact, Normal Color, No Rash, Other (PE temperature was 101.3 rectally.) #1 Interpretation EKG Date: 01/22/21 Time: 12:12 Rhythm: A-Fib (With rapid ventricular rate of 150/min.) Rate (Beats/Min): 149 [place]: RAD-Right [place] Deviation (Mild right axis deviation of 90 degrees) P-Wave: Variable QRS: Other (There is decreased voltage limb leads. Patient has Q waves in lead V1 and Q-wave in aVL. Nonspecific findings patient) ST-T: Depressed (ST segment depression with T wave inversion V4 to V6 T wave inversion in leads II, 3, aVF consider anterior apical inferior ischemia.) QT: Normal EKG Interpretation Comments: Abnormal ECG. Right left arm electrode reversal evident. Course - Vital Signs Last Recorded V/S: Last Vital Signs Temp 37.1 C 01/22/21 13:45 Pulse 133 H 01/22/21 15:27 Resp 31 H 01/22/21 15:27 BP 111/87 01/22/21 15:27 Pulse Ox 97 01/22/21 15:27 - Orders/Labs/Meds Orders: Active Orders 24 hr Category Date Time Status Admission Status [Patient Status] [ADT] Routine ADT 01/22/21 15:41 Ordered Blood Glucose Check, Bedside [RC] ONETIME Care 01/22/21 12:11 Active EKG Documentation Completion [RC] STAT Care 01/22/21 12:11 Active CULTURE BLOOD [BC] Stat Lab 01/22/21 13:28 Ordered CULTURE BLOOD [BC] Stat Lab 01/22/21 13:28 Ordered Acetaminophen [TylenoL] Med 01/22/21 12:39 Active 650 mg PO Q4H PRN Sodium Chloride 0.9% [Normal Saline] 1,000 ml Med 01/22/21 12:45 Active IV ASDIRECTED Blood Culture x2 Reflex Set [OM.PC] Stat Oth 01/22/21 13:28 Ordered Medication Orders Acetaminophen (Acetaminophen 325 Mg Tab) 650 mg PO Q4H PRN PRN Reason: Pain Last Admin: 01/22/21 12:49 Dose: 650 mg Documented by: LALA Sodium Chloride (Normal Saline) 1,000 mls @ 999 mls/hr IV ASDIRECTED BERNARDO Last Admin: 01/22/21 12:49 Dose: 999 mls/hr Documented by: [id number] Labs: Laboratory Tests 01/22/21 01/22/21 01/22/21 Range/Units 11:38 11:40 11:58 WBC 10.80 H (4.23-9.07) K/mm3 RBC 2.67 L (4.63-6.08) M/mm3 Hgb 9.1 L (13.7-17.5) gm/dl Hct 29.3 L (40.1-51.0) % MCV 109.7 H D (79.0-92.2) fl MCH 34.1 H (25.7-32.2) pg MCHC 31.1 L (32.2-35.5) g/dl RDW Std Deviation 68.4 H (35.1-43.9) fL Plt Count 197 (163-337) K/mm3 MPV 9.9 (9.4-12.3) fl Neut % (Auto) 82.1 H (34.0-67.9) % Lymph % (Auto) 6.2 L (21.8-53.1) % [place] % (Auto) 10.6 (5.3-12.2) % Eos % (Auto) 0 L (0.8-7.0) Baso % (Auto) 0.3 (0.1-1.2) % Neut # (Auto) 8.86 H (1.78-5.38) K/mm3 Lymph # (Auto) 0.67 L (1.32-3.57) K/mm3 [place] # (Auto) 1.15 H (0.30-0.82) K/mm3 Eos # (Auto) 0.00 L (0.04-0.54) K/mm3 Baso # (Auto) 0.03 (0.01-0.08) K/mm3 Manual Slide Review Abnormal smear PT (9.7-12.0) SECONDS INR APTT (21.7-31.4) SECONDS Sodium (136-145) mEq/L Potassium (3.5-5.1) mEq/L Chloride (98-107) mEq/L Carbon Dioxide (21-32) mEq/L Anion Gap (5-15) BUN (7-18) mg/dL Creatinine (0.7-1.3) mg/dL Est Cr Clr Drug Dosing mL/min Estimated GFR (MDRD) (>60) mL/min BUN/Creatinine Ratio (14-18) Glucose (70-99) mg/dL POC Glucose (70-99) mg/dL Lactic Acid (0.4-2.0) mmol/L Calcium (8.5-10.1) mg/dL Magnesium (1.8-2.4) mg/dL Total Bilirubin (0.2-1.0) mg/dL GGT (15-85) U/L AST (15-37) U/L ALT (16-63) U/L Alkaline Phosphatase (46-116) U/L CK-MB (CK-2) (0-3.6) ng/ml Troponin I (0.00-0.056) ng/mL C-Reactive Protein (<1.0) mg/dL NT-Pro-B Natriuret Pep (0-450) pg/mL Total Protein (6.4-8.2) g/dl Albumin (3.4-5.0) g/dl Globulin gm/dL Albumin/Globulin Ratio (1-2) Lipase (73-393) U/L Urine Color Yellow (Yellow) Urine Appearance Clear (Clear) Urine pH 5.5 (5.0-8.0) Ur Specific [place] > or = 1.030 (1.005-1.030) Urine Protein 2+ H (Negative) Urine Glucose (UA) Negative (Negative) Urine Ketones Trace H (Negative) Urine Occult Blood 2+ H (Negative) Urine Nitrite Negative (Negative) Urine Bilirubin 1+ H (Negative) Urine Urobilinogen 0.2 (0.2-1.0) Ur Leukocyte Esterase Negative (Negative) U Hyaline Cast (Auto) 0-5 (0-5) /lpf Urine RBC 0-5 (0-5) /hpf Urine WBC 0-5 (0-5) /hpf Ur Epithelial Cells 0-5 (0-5) /hpf Amorphous Sediment Few H (NOT SEEN) /hpf Urine Bacteria Few (FEW) /hpf Urine Mucus Few (FEW) /hpf Ethyl Alcohol (0.00) gm% SARS-CoV-2 RNA ([facility]) Negative (NEGATIVE) 01/22/21 01/22/21 01/22/21 Range/Units 11:58 11:58 11:58 WBC (4.23-9.07) K/mm3 RBC (4.63-6.08) M/mm3 Hgb (13.7-17.5) gm/dl Hct (40.1-51.0) % MCV (79.0-92.2) fl MCH (25.7-32.2) pg MCHC (32.2-35.5) g/dl RDW Std Deviation (35.1-43.9) fL Plt Count (163-337) K/mm3 MPV (9.4-12.3) fl Neut % (Auto) (34.0-67.9) % Lymph % (Auto) (21.8-53.1) % [place] % (Auto) (5.3-12.2) % Eos % (Auto) (0.8-7.0) Baso % (Auto) (0.1-1.2) % Neut # (Auto) (1.78-5.38) K/mm3 Lymph # (Auto) (1.32-3.57) K/mm3 [place] # (Auto) (0.30-0.82) K/mm3 Eos # (Auto) (0.04-0.54) K/mm3 Baso # (Auto) (0.01-0.08) K/mm3 Manual Slide Review PT 19.7 H (9.7-12.0) SECONDS INR 1.86 APTT 24.5 (21.7-31.4) SECONDS Sodium 146 H (136-145) mEq/L Potassium 5.1 D (3.5-5.1) mEq/L Chloride 103 (98-107) mEq/L Carbon Dioxide 30 (21-32) mEq/L Anion Gap 18.1 H (5-15) BUN 90 H D (7-18) mg/dL Creatinine 2.9 H D (0.7-1.3) mg/dL Est Cr Clr Drug Dosing 24.16 mL/min Estimated GFR (MDRD) 21 (>60) mL/min BUN/Creatinine Ratio 31.0 H (14-18) Glucose 143 H (70-99) mg/dL POC Glucose (70-99) mg/dL Lactic Acid 3.7 H* (0.4-2.0) mmol/L Calcium 9.4 (8.5-10.1) mg/dL Magnesium (1.8-2.4) mg/dL Total Bilirubin 1.8 H (0.2-1.0) mg/dL GGT (15-85) U/L AST 1519 H (15-37) U/L ALT 2761 H (16-63) U/L Alkaline Phosphatase 70 (46-116) U/L CK-MB (CK-2) (0-3.6) ng/ml Troponin I (0.00-0.056) ng/mL C-Reactive Protein 3.9 H* (<1.0) mg/dL NT-Pro-B Natriuret Pep (0-450) pg/mL Total Protein 6.7 (6.4-8.2) g/dl Albumin 4.0 (3.4-5.0) g/dl Globulin 2.7 gm/dL Albumin/Globulin Ratio 1.5 (1-2) Lipase (73-393) U/L Urine Color (Yellow) Urine Appearance (Clear) Urine pH (5.0-8.0) Ur Specific [place] (1.005-1.030) Urine Protein (Negative) Urine Glucose (UA) (Negative) Urine Ketones (Negative) Urine Occult Blood (Negative) Urine Nitrite (Negative) Urine Bilirubin (Negative) Urine Urobilinogen (0.2-1.0) Ur Leukocyte Esterase (Negative) U Hyaline Cast (Auto) (0-5) /lpf Urine RBC (0-5) /hpf Urine WBC (0-5) /hpf Ur Epithelial Cells (0-5) /hpf Amorphous Sediment (NOT SEEN) /hpf Urine Bacteria (FEW) /hpf Urine Mucus (FEW) /hpf Ethyl Alcohol (0.00) gm% SARS-CoV-2 RNA ([facility]) (NEGATIVE) 01/22/21 01/22/21 01/22/21 Range/Units 11:58 11:58 11:58 WBC (4.23-9.07) K/mm3 RBC (4.63-6.08) M/mm3 Hgb (13.7-17.5) gm/dl Hct (40.1-51.0) % MCV (79.0-92.2) fl MCH (25.7-32.2) pg MCHC (32.2-35.5) g/dl RDW Std Deviation (35.1-43.9) fL Plt Count (163-337) K/mm3 MPV (9.4-12.3) fl Neut % (Auto) (34.0-67.9) % Lymph % (Auto) (21.8-53.1) % [place] % (Auto) (5.3-12.2) % Eos % (Auto) (0.8-7.0) Baso % (Auto) (0.1-1.2) % Neut # (Auto) (1.78-5.38) K/mm3 Lymph # (Auto) (1.32-3.57) K/mm3 [place] # (Auto) (0.30-0.82) K/mm3 Eos # (Auto) (0.04-0.54) K/mm3 Baso # (Auto) (0.01-0.08) K/mm3 Manual Slide Review PT (9.7-12.0) SECONDS INR APTT (21.7-31.4) SECONDS Sodium (136-145) mEq/L Potassium (3.5-5.1) mEq/L Chloride (98-107) mEq/L Carbon Dioxide (21-32) mEq/L Anion Gap (5-15) BUN (7-18) mg/dL Creatinine (0.7-1.3) mg/dL Est Cr Clr Drug Dosing mL/min Estimated GFR (MDRD) (>60) mL/min BUN/Creatinine Ratio (14-18) Glucose (70-99) mg/dL POC Glucose (70-99) mg/dL Lactic Acid (0.4-2.0) mmol/L Calcium (8.5-10.1) mg/dL Magnesium 2.8 H (1.8-2.4) mg/dL Total Bilirubin (0.2-1.0) mg/dL GGT 20 (15-85) U/L AST (15-37) U/L ALT (16-63) U/L Alkaline Phosphatase (46-116) U/L CK-MB (CK-2) 6.3 H (0-3.6) ng/ml Troponin I 0.985 H* (0.00-0.056) ng/mL C-Reactive Protein (<1.0) mg/dL NT-Pro-B Natriuret Pep 02058 H (0-450) pg/mL Total Protein (6.4-8.2) g/dl Albumin (3.4-5.0) g/dl Globulin gm/dL Albumin/Globulin Ratio (1-2) Lipase 80 (73-393) U/L Urine Color (Yellow) Urine Appearance (Clear) Urine pH (5.0-8.0) Ur Specific [place] (1.005-1.030) Urine Protein (Negative) Urine Glucose (UA) (Negative) Urine Ketones (Negative) Urine Occult Blood (Negative) Urine Nitrite (Negative) Urine Bilirubin (Negative) Urine Urobilinogen (0.2-1.0) Ur Leukocyte Esterase (Negative) U Hyaline Cast (Auto) (0-5) /lpf Urine RBC (0-5) /hpf Urine WBC (0-5) /hpf Ur Epithelial Cells (0-5) /hpf Amorphous Sediment (NOT SEEN) /hpf Urine Bacteria (FEW) /hpf Urine Mucus (FEW) /hpf Ethyl Alcohol 0.00 (0.00) gm% SARS-CoV-2 RNA ([facility]) (NEGATIVE) 01/22/21 01/22/21 Range/Units 12:17 14:48 WBC (4.23-9.07) K/mm3 RBC (4.63-6.08) M/mm3 Hgb (13.7-17.5) gm/dl Hct (40.1-51.0) % MCV (79.0-92.2) fl MCH (25.7-32.2) pg MCHC (32.2-35.5) g/dl RDW Std Deviation (35.1-43.9) fL Plt Count (163-337) K/mm3 MPV (9.4-12.3) fl Neut % (Auto) (34.0-67.9) % Lymph % (Auto) (21.8-53.1) % [place] % (Auto) (5.3-12.2) % Eos % (Auto) (0.8-7.0) Baso % (Auto) (0.1-1.2) % Neut # (Auto) (1.78-5.38) K/mm3 Lymph # (Auto) (1.32-3.57) K/mm3 [place] # (Auto) (0.30-0.82) K/mm3 Eos # (Auto) (0.04-0.54) K/mm3 Baso # (Auto) (0.01-0.08) K/mm3 Manual Slide Review PT (9.7-12.0) SECONDS INR APTT (21.7-31.4) SECONDS Sodium (136-145) mEq/L Potassium (3.5-5.1) mEq/L Chloride (98-107) mEq/L Carbon Dioxide (21-32) mEq/L Anion Gap (5-15) BUN (7-18) mg/dL Creatinine (0.7-1.3) mg/dL Est Cr Clr Drug Dosing mL/min Estimated GFR (MDRD) (>60) mL/min BUN/Creatinine Ratio (14-18) Glucose (70-99) mg/dL POC Glucose 129 H (70-99) mg/dL Lactic Acid 2.1 H* (0.4-2.0) mmol/L Calcium (8.5-10.1) mg/dL Magnesium (1.8-2.4) mg/dL Total Bilirubin (0.2-1.0) mg/dL GGT (15-85) U/L AST (15-37) U/L ALT (16-63) U/L Alkaline Phosphatase (46-116) U/L CK-MB (CK-2) (0-3.6) ng/ml Troponin I (0.00-0.056) ng/mL C-Reactive Protein (<1.0) mg/dL NT-Pro-B Natriuret Pep (0-450) pg/mL Total Protein (6.4-8.2) g/dl Albumin (3.4-5.0) g/dl Globulin gm/dL Albumin/Globulin Ratio (1-2) Lipase (73-393) U/L Urine Color (Yellow) Urine Appearance (Clear) Urine pH (5.0-8.0) Ur Specific [place] (1.005-1.030) Urine Protein (Negative) Urine Glucose (UA) (Negative) Urine Ketones (Negative) Urine Occult Blood (Negative) Urine Nitrite (Negative) Urine Bilirubin (Negative) Urine Urobilinogen (0.2-1.0) Ur Leukocyte Esterase (Negative) U Hyaline Cast (Auto) (0-5) /lpf Urine RBC (0-5) /hpf Urine WBC (0-5) /hpf Ur Epithelial Cells (0-5) /hpf Amorphous Sediment (NOT SEEN) /hpf Urine Bacteria (FEW) /hpf Urine Mucus (FEW) /hpf Ethyl Alcohol (0.00) gm% SARS-CoV-2 RNA ([facility]) (NEGATIVE) Meds: Medications Generic Name Dose Route Start Last Admin Trade Name Freq PRN Reason Stop Dose Admin Acetaminophen 650 mg 01/22/21 12:39 01/22/21 12:49 Acetaminophen 325 Mg Tab PO 650 mg Q4H PRN Administration Pain Sodium Chloride 1,000 mls @ 999 mls/hr 01/22/21 12:45 01/22/21 12:49 Normal Saline IV 999 mls/hr ASDIRECTED BERNARDO Administration Discontinued Medications Generic Name Dose Route Start Last Admin Trade Name Freq PRN Reason Stop Dose Admin Diltiazem HCl 10 mg 01/22/21 12:23 01/22/21 12:36 Diltiazem 50 Mg/10 Ml Sdv IVPUSH 01/22/21 12:24 10 mg ONETIME ONE Administration Diltiazem HCl 10 mg 01/22/21 13:00 01/22/21 13:05 Diltiazem 50 Mg/10 Ml Sdv IVPUSH 01/22/21 13:01 10 mg ONETIME ONE Administration Diltiazem HCl 20 mg 01/22/21 13:42 01/22/21 13:46 Diltiazem 50 Mg/10 Ml Sdv IVPUSH 01/22/21 13:43 20 mg ONETIME ONE Administration Diltiazem HCl 100 mg/ Sodium 100 mls @ 10 mls/hr 01/22/21 12:45 01/22/21 13:41 Chloride IV 15 mg/hr ASDIRECTED BERNARDO 15 mls/hr Infusion 10 MG/HR Ceftriaxone Sodium 2 gm/ 100 mls @ 200 mls/hr 01/22/21 12:45 01/22/21 13:05 Sodium Chloride IV 01/22/21 13:14 200 mls/hr ONETIME ONE Administration Amiodarone HCl/Dextrose 100 mls @ 600 mls/hr 01/22/21 14:19 01/22/21 14:29 Nexterone In Dextrose 150 Mg/100 Ml IV 01/22/21 14:28 600 mls/hr .BOLUS ONE Administration Protocol Amiodarone HCl/Dextrose 100 mls @ 600 mls/hr 01/22/21 15:14 01/22/21 15:26 Nexterone In Dextrose 150 Mg/100 Ml IV 01/22/21 15:23 600 mls/hr .BOLUS ONE Administration Protocol - Radiology Interpretation Free Text/Narrative:: 75-year-old gentleman who is pleasantly confused and carries a diagnosis of mild dementia presents to the ED per [facility]. He was apparently found on the floor of his home by his daughter who had not heard from him for a few days. It appears that he was on the floor beside the table there was no apparent signs of injury. The patient is on home oxygen anywhere from 3 to 12 L/min according to the daughter. He has about 85 feet of holes traveling throughout the house according to the paramedics. Here he is satting at 96 to 98% on 3 L/min by nasal cannula. He tries to answer most questions with a yes but you can tell that he is confabulating. He is very warm palpation and rectal temperature was 101.1 I believe. Septic work-up was commenced. Second problem is atrial fibrillation with rapid ventricular response of 150/min. This is c reating congestive heart failure symptoms with rales both lower lung hi and rhonchi upper lobes. I did not hear him cough or expectorate any sputum. Urine appeared to be very concentrated and foul-smelling. Patient will be given Tylenol 650 mg p.o. for fever relief. His blood pressure is 127/84. He will be given Cardizem 10 mg IV bolus and then started a drip at 10 mg/h. IV will be normal saline at open to follow sepsis protocol. His CODE STATUS is DNR/DNI. - Re-Assessments/Exams Free Text/Narrative Re-Assessment/Exam: 01/22/21 12:41 lactic acid level called over by the lab is 3.7. 01/22/21 13:01 Patient's heart rate is little change from the initial dose of Cardizem. Heart rate currently is 152/min due to rapid atrial fibrillation. We will repeat Cardizem 10 mg IV bolus. The Cardizem drip just got started at 10 mg/h. Chest x-ray done for portable technique, reveals hyperinflated lung hi. Upper mediastinum is within normal limits. Lung parenchyma is clear. Pulmonary vascular congestion that was seen on prior study appears to be improved on current study. Minimal blunting of the left lateral costophrenic angle is seen which is stable. Bony structures show degenerative changes within the visualized lumbar spine. No signs of pneumonia. 01/22/21 13:05 White count is mildly elevated at 10.80 with a left shift of 82 .1% neutrophils. Hemoglobin is low at 9.1 with hematocrit of 29.3. MCV is elevated at 109.7. Platelet count 197,000. PT is 19.7 which is elevated. INR is 1.86 patient is on Coumadin. He is subtherapeutic. PTT is 24.5. Sodium is 146 with a potassium elevated at 5.1. Chloride 103 with a bicarb of 30. Anion gap elevated at 18.1. BUN is 90 with a creatinine of 2.9 and a GFR of only 21. This is stage IV renal insufficiency. He appears to be markedly volume depleted. BUN creatinine ratio is elevated at 31.0. Glucose elevated 143. Bedside glucose was 129. Lactic acid is 3.7. Reflex lactic acid ordered. Calcium is 9.4 magnesium is elevated at 2.8. Bilirubin elevated at 1.8 AST elevated at 1519 with an ALT of 2761 alkaline phosphatase is 70. Therefore he does not appear to be exhibiting biliary tree obstruction but more likely significant hepatic congestion due to congestive heart failure. CK-MB fraction is elevated at 6.3. Troponin I is markedly elevated at 0.985. C-reactive protein is 3.9. BNP is 30,453. Total protein 6.7 with an albumin fraction of 4.0. Urinalysis shows 2+ proteinuria 2+ occult blood 1+ bilirubin no signs of infection COVID-19 screen is negative. 01/22/21 13:43 Cardizem drip has been increased to 15 mg/h since his heart rate remains at 150/min. His blood pressure is 126/85. I am going to give him a 20 mg IV bolus dose of Cardizem. If his heart rate fails to respond to the Cardizem at this time will consider switching to amiodarone infusion. I spoke with Dr. Marie in regards to admission. At this time it appears he would need admission to the intensive care unit due to Cardizem drip and infusion. However his labs reveal that he has eaten extremely poor prognosis due to hepatic failure and renal failure and likely recent myocardial infarction and severe congestive heart failure. We will discuss with family members to see if they wish to make him comfort care measures only. 01/22/21 13:59 I have spoken with the patient's daughter Courtney Comer whom is known to me. After discussing the results of his labs with a combination of underlying sepsis of unclear etiology severe congestive heart failure hepatic failure and renal failure his prognosis remains extremely poor. Therefore we have opted to provide comfort care measures only with no aggressive treatment as it is unlikely to be successful. 01/22/21 14:15 CT of the abdomen pelvis has been completed without any contrast. Liver shows scattered areas of fatty infiltration but no significant intraductal dilatation. Spleen size is normal. Adrenal glands show no focal nodules. Pancreas shows no focal abnormality gallbladder contains no calcified gallstones. Cyst is noted within the left kidney measuring approximately 5.5 cm off the superior pole. Small calcification is seen next to the cyst which is felt to be benign. Right kidney contains a cyst measuring approximately 1.9 cm with wall calcification. Other calcification is seen more centrally within the right kidney possibly due to a nonobstructing stone. Abdominal aorta and iliac vessels show diffuse atherosclerotic calcification with no aneurysm. No retroperitoneal adenopathy is seen. Small fat-containing umbilical hernia appreciated. Normal appendix is believed to be partially seen. No pelvic mass or adenopathy noted. Calcifications are noted within the prostate gland. No small bowel dilatation is seen. Bone window settings were reviewed which show degenerative change within the spine with spondylitic defects at the L5-S1 level. His heart rate has gone up to 135/min. I am going to discontinue the Cardizem drip and give him amiodarone 150 mg IV over 10 minutes. Not given him any Lasix at this point time I will leave this up to Dr. Paige. The goal would be to try and get him off any infusions particularly a continuous drip that would require ICU admission Free Text/Narrative Re-Assessment/Exam: 01/22/21 15:15 heart rate did come down to 120/min transiently it is currently 1 25-1 38. I am going to repeat amiodarone 150 mg over the next 10 minutes. Departure - Departure Time of Disposition: 15:43 Disposition: Admitted As Inpatient 66 Condition: Critical Clinical Impression: Acute febrile illness, Chronic renal insufficiency, stage IV (severe), High transaminase levels, History of alcoholic cardiomyopathy, Atrial fibrillation with rapid ventricular response Congestive heart failure with left ventricular diastolic dysfunction Qualifiers: Congestive heart failure chronicity: acute on chronic Qualified Code(s): I50.33 - Acute on chronic diastolic (congestive) heart failure COPD (chronic obstructive pulmonary disease) with emphysema Qualifiers: Emphysema type: panlobular Qualified Code(s): J43.1 - Panlobular emphysema Anemia Qualifiers: Anemia type: due to chronic kidney disease Chronic kidney disease stage: stage 4 (severe) Qualified Code(s): N18.4 - Chronic kidney disease, stage 4 (severe); D63.1 - Anemia in chronic kidney disease - Discharge Information Referrals: Amada Bennett MD [Primary Care Provider] - Forms: ED Department Discharge Sepsis Event Note (ED) - Evaluation Sepsis Screening Result: Possible Severe Sepsis Risk - Focused Exam Vital Signs: Vital Signs Temp Temp Pulse Resp BP Pulse Ox 01/22/21 15:27 133 H 31 H 111/87 97 01/22/21 14:27 122 H 27 H 120/89 100 01/22/21 13:45 37.1 C 151 H 32 H 126/82 96 01/22/21 12:49 38.6 C H 01/22/21 11:41 36.9 C 147 H 27 H 132/85 100 - My Orders Last 24 Hours: My Active Orders 01/22/21 12:11 Blood Glucose Check, Bedside [RC] ONETIME EKG Documentation Completion [RC] STAT 01/22/21 12:39 Acetaminophen [TylenoL] 650 mg PO Q4H PRN 01/22/21 12:45 Sodium Chloride 0.9% [Normal Saline] 1,000 ml IV ASDIRECTED 01/22/21 13:28 CULTURE BLOOD [BC] Stat CULTURE BLOOD [BC] Stat Blood Culture x2 Reflex Set [OM.PC] Stat 01/22/21 15:41 Admission Status [Patient Status] [ADT] Routine - Assessment/Plan Last 24 Hours: My Active Orders 01/22/21 12:11 Blood Glucose Check, Bedside [RC] ONETIME EKG Documentation Completion [RC] STAT 01/22/21 12:39 Acetaminophen [TylenoL] 650 mg PO Q4H PRN 01/22/21 12:45 Sodium Chloride 0.9% [Normal Saline] 1,000 ml IV ASDIRECTED 01/22/21 13:28 CULTURE BLOOD [BC] Stat CULTURE BLOOD [BC] Stat Blood Culture x2 Reflex Set [OM.PC] Stat 01/22/21 15:41 Admission Status [Patient Status] [ADT] Routine
[2021-01-22] MEDS ORDERED: Diltiazem 50 MG/10 ML SDV IVPUSH ONE ×3 (12:23→13:42)
--- NOTE | 2021-01-22 12:37 | CR ---
Chest: Portable view of the chest was obtained. Comparison: Prior chest x-ray of 08/21/20. Heart size appears within normal limits for portable technique. Upper mediastinum is within normal limits. Lungs are clear. Pulmonary vascular congestion that was seen on prior study appears to be improved on current study. Minimal blunting of the lateral left costophrenic angle is seen which is stable. Bony structures show mild degenerative change within the visualized lumbar spine. No acute osseous abnormality is appreciated. Impression: 1. Slight blunting of the lateral left costophrenic angle which is stable from prior study. 2. Nothing acute is otherwise seen on portable chest x-ray. Diagnostic code #2
[2021-01-22] MEDS ORDERED: Acetaminophen 325 MG Tab PO PRN (12:39)
[2021-01-22] MEDS ORDERED: Sodium Chloride 0.9% 1,000 ML IV SCH (12:45)
[2021-01-22] MEDS ORDERED: Diltiazem 100 MG in Sodium Chloride 0.9% 100 ML IV SCH (12:45)
[2021-01-22] MEDS ORDERED: cefTRIAXone 2 GM in Sodium Chloride 0.9% 100 ML IV ONE (12:45)
--- NOTE | 2021-01-22 14:04 | CT ---
CT abdomen and pelvis Technique: Multiple axial sections were obtained from above the dome of the diaphragm inferiorly through the pubic symphysis. Intravenous and oral contrast was not utilized. Reconstructed coronal and sagittal images were obtained. Comparison: Prior CT abdomen and pelvis study of 11/29/12. Findings: Visualized lung bases show emphysematous change without acute abnormality. Liver shows scattered areas of fatty infiltration. No focal abnormality is otherwise seen within the liver. Spleen size is normal. Adrenal glands shows no focal nodule. Pancreas shows no focal abnormality. Gallbladder contains no calcified gallstones. Cyst is noted within the left kidney measuring approximately 5.5 cm. Small calcification is seen next to the cyst which is felt to be benign. Right kidney contains a cyst measuring approximately 1.9 cm with wall calcification. Other calcification is seen more centrally within the right kidney possibly due to nonobstructing calculus. Abdominal aorta and iliac vessels show atherosclerotic calcification with no aneurysm. No retroperitoneal adenopathy is seen. Small fat-containing umbilical hernia is noted. Normal appendix is believed to be partially seen. No pelvic mass or adenopathy is seen. Calcifications are noted within the prostate gland. No small bowel dilatation is seen. Bone window settings were reviewed which show degenerative change within the spine with spondylitic defects at L5-S1. Impression: 1. Numerous findings as noted above. 2. Nothing acute is appreciated. Diagnostic code #2
[2021-01-22] MEDS ORDERED: Morphine 2 MG/ML SYRINGE IVPUSH PRN ×2 (17:37→23:26)
[2021-01-22] MEDS ORDERED: Furosemide 20 MG/2 ML VIAL IVPUSH ONE (17:39)
[2021-01-22] MEDS ORDERED: Sodium Polystyrene Sulfonate 15 GM/60 ML Susp 60 ML Bot PO ONE (17:40)
[2021-01-22] MEDS ORDERED: Promethazine 12.5 MG in Sodium Chloride 0.9% 50 ML IV PRN (17:42)
[2021-01-22] MEDS ORDERED: Bisacodyl 5 MG Tab PO PRN (17:54)
[2021-01-22] MEDS ORDERED: Tamsulosin 0.4 MG Cap.ER PO SCH (18:00)
[2021-01-22] MEDS ORDERED: Aspirin 81 MG Tab.EC PO SCH (18:00)
[2021-01-22] MEDS ORDERED: Tiotropium Bromide 4 GM Inhalation Spray (2.5mcg/1 dose; 10 doses) INH SCH (18:00)
[2021-01-22] MEDS ORDERED: Sertraline 50 MG Tab PO SCH (18:00)
[2021-01-22] MEDS ORDERED: Non-Formulary Medication 1 Each (Rosuvastatin Calcium [Rosuvastatin Calcium] 20 MG Tablet) PO SCH (18:00)
[2021-01-22] MEDS ORDERED: Non-Formulary Medication 1 Each (Ubidecarenone 100 MG Capsule) PO SCH (18:00)
[2021-01-22] MEDS ORDERED: Cyanocobalamin (Vitamin B12) 1,000 MCG Tab PO SCH (18:00)
--- NOTE | 2021-01-22 18:09 | PCM.HP.2 ---
H&P History of Present Illness - General Date of Service: 01/22/21 Admit Problem/Dx: Admission Diagnosis/Problem Admission Diagnosis/Problem Fever, unspecified Source of Information: Patient, Other (chart) - History of Present Illness Initial Comments - Free Text/Narative: Patient is a 75-year-old male with a history of CHF, COPD, atrial fibrillation, and anemia who was brought to the ER due to AMS. His daughter had not heard from him for a few days and went to check on him this morning. The daughter found him to sit on floor beside the kitchen table and did not respond. He is normally on 6 L oxygen per nasal cannula but his oxygen was off. In the ER, his heart rate was found to be around 150 which was controlled after amiodarone and diltiazem drip were given. Hemoglobin 9.1, INR 1.86, sodium 146, potassium 5.1, creatinine 2.9, lactic acid 3.7, magnesium 2.8, AST 1519, ALT 2761, troponin 0.1 985, BNP 42931 and CRP 3.9. ER physician Dr. Harvey discussed with and step daughter who would like to pursue comfort care only. NATASHA Ramirez and I met and the daughter who confirmed that they would like to pursue comfort care only. Specifically, no oxygen, no IV fluid, no antibiotics, no blood tests, no imaging tests, and no procedures. Offer the patient pain medications and medications for nausea, vomiting, anxiety and secretion. Stop all other medications which are not related to comfort care. They would like to start comfort care only now. - Related Data Allergies/Adverse Reactions: Allergies Allergy/AdvReac Type Severity Reaction Status Date / Time No Known Allergies Allergy Verified 01/22/21 11:58 Home Medications: Home Meds ALPRAZolam [Xanax] 0.5 mg PO BID 01/22/21 [History] Albuterol Sulfate 2.5 mg NEB Q4H PRN 01/22/21 [History] Albuterol Sulfate [Albuterol Sulfate HFA] 2 puff INH Q4H PRN 01/22/21 [History] Aloe Vera 25 mg PO DAILY 01/22/21 [History] Aspirin [Aspirin EC] 81 mg PO Q24H 01/22/21 [History] Budesonide/Formoterol Fumarate [Budesonide-Formoterol 160-4.5] 2 puff IH BID 01/22/21 [History] Cholecalciferol (Vitamin D3) [Vitamin D3] 1,000 unit PO DAILY 01/22/21 [History] Cyanocobalamin (Vitamin B-12) [B-12] 1,000 mcg PO WEEKLY 01/22/21 [History] Furosemide 40 mg PO QAM 01/22/21 [History] Ibuprofen 200 mg PO Q6H PRN 01/22/21 [History] L.acidoph,Paracasei, B.lactis [Probiotic] 1 cap PO DAILY 01/22/21 [History] Lysine 1,000 mg PO DAILY 01/22/21 [History] Melatonin 5 mg PO BEDTIME 01/22/21 [History] Rosuvastatin Calcium 20 mg PO DAILY 01/22/21 [History] Sennosides [Senna] 17.2 mg PO DAILY 01/22/21 [History] Sertraline [Zoloft] 75 mg PO DAILY 01/22/21 [History] Tamsulosin [Flomax] 0.8 mg PO Q24H 01/22/21 [History] Tiotropium [Spiriva HandiHaler] 18 mcg INH Q24H 01/22/21 [History] Ubidecarenone [Co Q-10] 100 mg PO DAILY 01/22/21 [History] bisacodyL [Bisacodyl] 10 mg PO DAILY PRN 01/22/21 [History] buPROPion HCL [Bupropion Xl] 150 mg PO QAM 01/22/21 [History] guaiFENesin [Mucinex] 600 mg PO Q24H 01/22/21 [History] Past Medical History HEENT History: Reports: Impaired Vision Cardiovascular History: Reports: Afib, Heart Failure, Other (See Below) Other Cardiovascular History: current afib Respiratory History: Reports: COPD, Sleep Apnea, Other (See Below) Other Respiratory History: pnuemonia; oxygen dependent COPD Genitourinary History: Reports: None Musculoskeletal History: Reports: None Neurological History: Reports: Other (See Below) Other Neuro History: dementia Psychiatric History: Reports: Anxiety, Dementia Endocrine/Metabolic History: Reports: None Hematologic History: Reports: Bleeding Disorder Other Hematologic History: cannot remember name. Immunologic History: Reports: None Oncologic (Cancer) History: Reports: None Dermatologic History: Reports: Other (See Below) Other Dermatologic History: Skin bruises easily. - Infectious Disease History Infectious Disease History: Reports: Measles - Past Surgical History GI Surgical History: Reports: Colonoscopy, Other (See Below) Other GI Surgeries/Procedures: Abdominal surgery due to having his colon and intestines punctured by the colonoscopy. Social & Family History - Family History Family Medical History: Unobtainable - Tobacco Use Tobacco Use Status *Q: Former Tobacco User Used Tobacco, but Quit: Yes Month/Year Tobacco Last Used: 15 years ago - Caffeine Use Caffeine Use: Reports: None Caffeine Use Comment: unkown - Recreational Drug Use Recreational Drug Use: No - Living Situation & Occupation Living situation: Reports: , with Spouse Occupation: Employed H&P Review of Systems - Review of Systems: Review Of Systems: See Below General: Reports: Weakness HEENT: Reports: No Symptoms Pulmonary: Reports: No Symptoms Cardiovascular: Reports: No Symptoms Gastrointestinal: Reports: No Symptoms Genitourinary: Reports: No Symptoms Musculoskeletal: Reports: No Symptoms Skin: Reports: No Symptoms Psychiatric: Reports: No Symptoms Neurological: Reports: No Symptoms Hematologic/Lymphatic: Reports: No Symptoms Immunologic: Reports: No Symptoms Exam - Exam Exam: See Below - Vital Signs Vital Signs: Last Vital Signs Temp 37.1 C 01/22/21 13:45 Pulse 102 H 01/22/21 15:49 Resp 32 H 01/22/21 15:49 BP 121/76 01/22/21 15:49 Pulse Ox 100 01/22/21 15:49 Weight: 84.822 kg - Exam General: Cooperative HEENT: Conjunctiva Clear, Pupils Equal, Pupils Reactive Neck: Supple, Full Range of Motion Lungs: Normal Respiratory Effort, Decreased Breath Sounds, Rhonchi Cardiovascular: Irregular Rhythm GI/Abdominal Exam: Normal Bowel Sounds, Soft, No Organomegaly Extremities: Normal Inspection, No Pedal Edema Neuro Extensive - Mental Status: Alert, Disorientation to Place, Disorientation to Time, Opens Eyes to Commands Psychiatric: Other (Seems to have normal affect) - Patient Data Lab Results Last 24 hrs: Laboratory Results - last 24 hr 01/22/21 01/22/21 01/22/21 Range/Units 11:38 11:40 11:58 WBC 10.80 H (4.23-9.07) K/mm3 RBC 2.67 L (4.63-6.08) M/mm3 Hgb 9.1 L (13.7-17.5) gm/dl Hct 29.3 L (40.1-51.0) % MCV 109.7 H D (79.0-92.2) fl MCH 34.1 H (25.7-32.2) pg MCHC 31.1 L (32.2-35.5) g/dl RDW Std Deviation 68.4 H (35.1-43.9) fL Plt Count 197 (163-337) K/mm3 MPV 9.9 (9.4-12.3) fl Neut % (Auto) 82.1 H (34.0-67.9) % Lymph % (Auto) 6.2 L (21.8-53.1) % [place] % (Auto) 10.6 (5.3-12.2) % Eos % (Auto) 0 L (0.8-7.0) Baso % (Auto) 0.3 (0.1-1.2) % Neut # (Auto) 8.86 H (1.78-5.38) K/mm3 Lymph # (Auto) 0.67 L (1.32-3.57) K/mm3 [place] # (Auto) 1.15 H (0.30-0.82) K/mm3 Eos # (Auto) 0.00 L (0.04-0.54) K/mm3 Baso # (Auto) 0.03 (0.01-0.08) K/mm3 Manual Slide Review Abnormal smear PT (9.7-12.0) SECONDS INR APTT (21.7-31.4) SECONDS Sodium (136-145) mEq/L Potassium (3.5-5.1) mEq/L Chloride (98-107) mEq/L Carbon Dioxide (21-32) mEq/L Anion Gap (5-15) BUN (7-18) mg/dL Creatinine (0.7-1.3) mg/dL Est Cr Clr Drug Dosing mL/min Estimated GFR (MDRD) (>60) mL/min BUN/Creatinine Ratio (14-18) Glucose (70-99) mg/dL POC Glucose (70-99) mg/dL Lactic Acid (0.4-2.0) mmol/L Calcium (8.5-10.1) mg/dL Magnesium (1.8-2.4) mg/dL Total Bilirubin (0.2-1.0) mg/dL GGT (15-85) U/L AST (15-37) U/L ALT (16-63) U/L Alkaline Phosphatase (46-116) U/L CK-MB (CK-2) (0-3.6) ng/ml Troponin I (0.00-0.056) ng/mL C-Reactive Protein (<1.0) mg/dL NT-Pro-B Natriuret Pep (0-450) pg/mL Total Protein (6.4-8.2) g/dl Albumin (3.4-5.0) g/dl Globulin gm/dL Albumin/Globulin Ratio (1-2) Lipase (73-393) U/L Urine Color Yellow (Yellow) Urine Appearance Clear (Clear) Urine pH 5.5 (5.0-8.0) Ur Specific [place] > or = 1.030 (1.005-1.030) Urine Protein 2+ H (Negative) Urine Glucose (UA) Negative (Negative) Urine Ketones Trace H (Negative) Urine Occult Blood 2+ H (Negative) Urine Nitrite Negative (Negative) Urine Bilirubin 1+ H (Negative) Urine Urobilinogen 0.2 (0.2-1.0) Ur Leukocyte Esterase Negative (Negative) U Hyaline Cast (Auto) 0-5 (0-5) /lpf Urine RBC 0-5 (0-5) /hpf Urine WBC 0-5 (0-5) /hpf Ur Epithelial Cells 0-5 (0-5) /hpf Amorphous Sediment Few H (NOT SEEN) /hpf Urine Bacteria Few (FEW) /hpf Urine Mucus Few (FEW) /hpf Ethyl Alcohol (0.00) gm% SARS-CoV-2 RNA ([facility]) Negative (NEGATIVE) 01/22/21 01/22/21 01/22/21 Range/Units 11:58 11:58 11:58 WBC (4.23-9.07) K/mm3 RBC (4.63-6.08) M/mm3 Hgb (13.7-17.5) gm/dl Hct (40.1-51.0) % MCV (79.0-92.2) fl MCH (25.7-32.2) pg MCHC (32.2-35.5) g/dl RDW Std Deviation (35.1-43.9) fL Plt Count (163-337) K/mm3 MPV (9.4-12.3) fl Neut % (Auto) (34.0-67.9) % Lymph % (Auto) (21.8-53.1) % [place] % (Auto) (5.3-12.2) % Eos % (Auto) (0.8-7.0) Baso % (Auto) (0.1-1.2) % Neut # (Auto) (1.78-5.38) K/mm3 Lymph # (Auto) (1.32-3.57) K/mm3 [place] # (Auto) (0.30-0.82) K/mm3 Eos # (Auto) (0.04-0.54) K/mm3 Baso # (Auto) (0.01-0.08) K/mm3 Manual Slide Review PT 19.7 H (9.7-12.0) SECONDS INR 1.86 APTT 24.5 (21.7-31.4) SECONDS Sodium 146 H (136-145) mEq/L Potassium 5.1 D (3.5-5.1) mEq/L Chloride 103 (98-107) mEq/L Carbon Dioxide 30 (21-32) mEq/L Anion Gap 18.1 H (5-15) BUN 90 H D (7-18) mg/dL Creatinine 2.9 H D (0.7-1.3) mg/dL Est Cr Clr Drug Dosing 24.16 mL/min Estimated GFR (MDRD) 21 (>60) mL/min BUN/Creatinine Ratio 31.0 H (14-18) Glucose 143 H (70-99) mg/dL POC Glucose (70-99) mg/dL Lactic Acid 3.7 H* (0.4-2.0) mmol/L Calcium 9.4 (8.5-10.1) mg/dL Magnesium (1.8-2.4) mg/dL Total Bilirubin 1.8 H (0.2-1.0) mg/dL GGT (15-85) U/L AST 1519 H (15-37) U/L ALT 2761 H (16-63) U/L Alkaline Phosphatase 70 (46-116) U/L CK-MB (CK-2) (0-3.6) ng/ml Troponin I (0.00-0.056) ng/mL C-Reactive Protein 3.9 H* (<1.0) mg/dL NT-Pro-B Natriuret Pep (0-450) pg/mL Total Protein 6.7 (6.4-8.2) g/dl Albumin 4.0 (3.4-5.0) g/dl Globulin 2.7 gm/dL Albumin/Globulin Ratio 1.5 (1-2) Lipase (73-393) U/L Urine Color (Yellow) Urine Appearance (Clear) Urine pH (5.0-8.0) Ur Specific [place] (1.005-1.030) Urine Protein (Negative) Urine Glucose (UA) (Negative) Urine Ketones (Negative) Urine Occult Blood (Negative) Urine Nitrite (Negative) Urine Bilirubin (Negative) Urine Urobilinogen (0.2-1.0) Ur Leukocyte Esterase (Negative) U Hyaline Cast (Auto) (0-5) /lpf Urine RBC (0-5) /hpf Urine WBC (0-5) /hpf Ur Epithelial Cells (0-5) /hpf Amorphous Sediment (NOT SEEN) /hpf Urine Bacteria (FEW) /hpf Urine Mucus (FEW) /hpf Ethyl Alcohol (0.00) gm% SARS-CoV-2 RNA ([facility]) (NEGATIVE) 01/22/21 01/22/21 01/22/21 Range/Units 11:58 11:58 11:58 WBC (4.23-9.07) K/mm3 RBC (4.63-6.08) M/mm3 Hgb (13.7-17.5) gm/dl Hct (40.1-51.0) % MCV (79.0-92.2) fl MCH (25.7-32.2) pg MCHC (32.2-35.5) g/dl RDW Std Deviation (35.1-43.9) fL Plt Count (163-337) K/mm3 MPV (9.4-12.3) fl Neut % (Auto) (34.0-67.9) % Lymph % (Auto) (21.8-53.1) % [place] % (Auto) (5.3-12.2) % Eos % (Auto) (0.8-7.0) Baso % (Auto) (0.1-1.2) % Neut # (Auto) (1.78-5.38) K/mm3 Lymph # (Auto) (1.32-3.57) K/mm3 [place] # (Auto) (0.30-0.82) K/mm3 Eos # (Auto) (0.04-0.54) K/mm3 Baso # (Auto) (0.01-0.08) K/mm3 Manual Slide Review PT (9.7-12.0) SECONDS INR APTT (21.7-31.4) SECONDS Sodium (136-145) mEq/L Potassium (3.5-5.1) mEq/L Chloride (98-107) mEq/L Carbon Dioxide (21-32) mEq/L Anion Gap (5-15) BUN (7-18) mg/dL Creatinine (0.7-1.3) mg/dL Est Cr Clr Drug Dosing mL/min Estimated GFR (MDRD) (>60) mL/min BUN/Creatinine Ratio (14-18) Glucose (70-99) mg/dL POC Glucose (70-99) mg/dL Lactic Acid (0.4-2.0) mmol/L Calcium (8.5-10.1) mg/dL Magnesium 2.8 H (1.8-2.4) mg/dL Total Bilirubin (0.2-1.0) mg/dL GGT 20 (15-85) U/L AST (15-37) U/L ALT (16-63) U/L Alkaline Phosphatase (46-116) U/L CK-MB (CK-2) 6.3 H (0-3.6) ng/ml Troponin I 0.985 H* (0.00-0.056) ng/mL C-Reactive Protein (<1.0) mg/dL NT-Pro-B Natriuret Pep 08469 H (0-450) pg/mL Total Protein (6.4-8.2) g/dl Albumin (3.4-5.0) g/dl Globulin gm/dL Albumin/Globulin Ratio (1-2) Lipase 80 (73-393) U/L Urine Color (Yellow) Urine Appearance (Clear) Urine pH (5.0-8.0) Ur Specific [place] (1.005-1.030) Urine Protein (Negative) Urine Glucose (UA) (Negative) Urine Ketones (Negative) Urine Occult Blood (Negative) Urine Nitrite (Negative) Urine Bilirubin (Negative) Urine Urobilinogen (0.2-1.0) Ur Leukocyte Esterase (Negative) U Hyaline Cast (Auto) (0-5) /lpf Urine RBC (0-5) /hpf Urine WBC (0-5) /hpf Ur Epithelial Cells (0-5) /hpf Amorphous Sediment (NOT SEEN) /hpf Urine Bacteria (FEW) /hpf Urine Mucus (FEW) /hpf Ethyl Alcohol 0.00 (0.00) gm% SARS-CoV-2 RNA ([facility]) (NEGATIVE) 01/22/21 01/22/21 Range/Units 12:17 14:48 WBC (4.23-9.07) K/mm3 RBC (4.63-6.08) M/mm3 Hgb (13.7-17.5) gm/dl Hct (40.1-51.0) % MCV (79.0-92.2) fl MCH (25.7-32.2) pg MCHC (32.2-35.5) g/dl RDW Std Deviation (35.1-43.9) fL Plt Count (163-337) K/mm3 MPV (9.4-12.3) fl Neut % (Auto) (34.0-67.9) % Lymph % (Auto) (21.8-53.1) % [place] % (Auto) (5.3-12.2) % Eos % (Auto) (0.8-7.0) Baso % (Auto) (0.1-1.2) % Neut # (Auto) (1.78-5.38) K/mm3 Lymph # (Auto) (1.32-3.57) K/mm3 [place] # (Auto) (0.30-0.82) K/mm3 Eos # (Auto) (0.04-0.54) K/mm3 Baso # (Auto) (0.01-0.08) K/mm3 Manual Slide Review PT (9.7-12.0) SECONDS INR APTT (21.7-31.4) SECONDS Sodium (136-145) mEq/L Potassium (3.5-5.1) mEq/L Chloride (98-107) mEq/L Carbon Dioxide (21-32) mEq/L Anion Gap (5-15) BUN (7-18) mg/dL Creatinine (0.7-1.3) mg/dL Est Cr Clr Drug Dosing mL/min Estimated GFR (MDRD) (>60) mL/min BUN/Creatinine Ratio (14-18) Glucose (70-99) mg/dL POC Glucose 129 H (70-99) mg/dL Lactic Acid 2.1 H* (0.4-2.0) mmol/L Calcium (8.5-10.1) mg/dL Magnesium (1.8-2.4) mg/dL Total Bilirubin (0.2-1.0) mg/dL GGT (15-85) U/L AST (15-37) U/L ALT (16-63) U/L Alkaline Phosphatase (46-116) U/L CK-MB (CK-2) (0-3.6) ng/ml Troponin I (0.00-0.056) ng/mL C-Reactive Protein (<1.0) mg/dL NT-Pro-B Natriuret Pep (0-450) pg/mL Total Protein (6.4-8.2) g/dl Albumin (3.4-5.0) g/dl Globulin gm/dL Albumin/Globulin Ratio (1-2) Lipase (73-393) U/L Urine Color (Yellow) Urine Appearance (Clear) Urine pH (5.0-8.0) Ur Specific [place] (1.005-1.030) Urine Protein (Negative) Urine Glucose (UA) (Negative) Urine Ketones (Negative) Urine Occult Blood (Negative) Urine Nitrite (Negative) Urine Bilirubin (Negative) Urine Urobilinogen (0.2-1.0) Ur Leukocyte Esterase (Negative) U Hyaline Cast (Auto) (0-5) /lpf Urine RBC (0-5) /hpf Urine WBC (0-5) /hpf Ur Epithelial Cells (0-5) /hpf Amorphous Sediment (NOT SEEN) /hpf Urine Bacteria (FEW) /hpf Urine Mucus (FEW) /hpf Ethyl Alcohol (0.00) gm% SARS-CoV-2 RNA ([facility]) (NEGATIVE) Result Diagrams: 01/22/21 11:58 01/22/21 11:58 Sepsis Event Note - Evaluation Sepsis Screening Result: Possible Severe Sepsis Risk - Focused Exam Vital Signs: Vital Signs Temp Temp Pulse Resp BP Pulse Ox 01/22/21 15:49 102 H 32 H 121/76 100 01/22/21 15:27 133 H 31 H 111/87 97 01/22/21 14:27 122 H 27 H 120/89 100 01/22/21 13:45 37.1 C 151 H 32 H 126/82 96 01/22/21 12:49 38.6 C H 01/22/21 11:41 36.9 C 147 H 27 H 132/85 100 Problem List Initiated/Reviewed/Updated: Yes Orders Last 24hrs: Active Orders 24 hr Category Date Time Status Admission Status [Patient Status] [ADT] Routine ADT 01/22/21 15:41 Active Bedrest Bedside Commode [RC] 10,22 Care 01/22/21 17:37 Active Cardiac Monitoring [RC] CONTINUOUS Care 01/22/21 17:38 Active Height and Weight [RC] 06 Care 01/22/21 17:37 Active Intake and Output [RC] 04,16 Care 01/22/21 17:38 Active Nurse Communication: Isolation [RC] ASDIRECTED Care 01/22/21 17:33 Active Pulse Oximetry [RC] CONTINUOUS Care 01/22/21 17:38 Active VTE/DVT Education [RC] 0900 Care 01/22/21 17:38 Active Vital Signs [RC] Q4H Care 01/22/21 17:38 Active Consult to Case Management/Client Resolution Specialist [CONS] Cons 01/22/21 17:20 Active Routine OT Evaluation and Treatment [CONS] Routine Cons 01/22/21 17:42 Active PT Evaluation and Treatment [CONS] Routine Cons 01/22/21 17:42 Active Nothing per Oral Now Diet [DIET] Diet 01/22/21 Dinner Active C-REACTIVE PROTEIN [CHEM] DAILY Lab 01/23/21 05:00 Ordered C-REACTIVE PROTEIN [CHEM] DAILY Lab 01/24/21 05:00 Ordered C-REACTIVE PROTEIN [CHEM] DAILY Lab 01/25/21 05:00 Ordered C-REACTIVE PROTEIN [CHEM] DAILY Lab 01/26/21 05:00 Ordered C-REACTIVE PROTEIN [CHEM] DAILY Lab 01/27/21 05:00 Ordered CBC WITH AUTO DIFF [HEME] DAILY Lab 01/23/21 05:00 Ordered CBC WITH AUTO DIFF [HEME] DAILY Lab 01/24/21 05:00 Ordered CBC WITH AUTO DIFF [HEME] DAILY Lab 01/25/21 05:00 Ordered CBC WITH AUTO DIFF [HEME] DAILY Lab 01/26/21 05:00 Ordered CBC WITH AUTO DIFF [HEME] DAILY Lab 01/27/21 05:00 Ordered COMPREHENSIVE METABOLIC PN,CMP [CHEM] DAILY Lab 01/23/21 05:00 Ordered COMPREHENSIVE METABOLIC PN,CMP [CHEM] DAILY Lab 01/24/21 05:00 Ordered COMPREHENSIVE METABOLIC PN,CMP [CHEM] DAILY Lab 01/25/21 05:00 Ordered COMPREHENSIVE METABOLIC PN,CMP [CHEM] DAILY Lab 01/26/21 05:00 Ordered COMPREHENSIVE METABOLIC PN,CMP [CHEM] DAILY Lab 01/27/21 05:00 Ordered CULTURE BLOOD [BC] Stat Lab 01/22/21 13:28 Ordered CULTURE BLOOD [BC] Stat Lab 01/22/21 13:28 Ordered LACTIC ACID [CHEM] Q6H Lab 01/22/21 17:53 Ordered LACTIC ACID [CHEM] Q6H Lab 01/22/21 23:53 Ordered MAGNESIUM [CHEM] DAILY Lab 01/23/21 05:00 Ordered TROPONIN I [CHEM] Q6H Lab 01/22/21 17:42 Ordered TROPONIN I [CHEM] Q6H Lab 01/22/21 23:42 Ordered ALPRAZolam [Xanax] Med 01/22/21 21:00 Ordered 0.5 mg PO BID Acetaminophen [TylenoL] Med 01/22/21 12:39 Active 650 mg PO Q4H PRN Aspirin [Halfprin] Med 01/22/21 18:00 Ordered 81 mg PO Q24H Budesonide/Formoterol Fumarate Med 01/22/21 18:00 Ordered 2 puff IH BID Cholecalciferol (Vitamin D3) [Vitamin D3] Med 01/23/21 09:00 Ordered 1,000 unit PO DAILY Cyanocobalamin (Vitamin B12) [Vitamin B12] Med 01/22/21 18:00 Ordered 1,000 mcg PO WEEKLY Heparin Sodium Med 01/22/21 22:00 Active 5,000 units SUBCUT Q8H Melatonin [Melatonin] Med 01/22/21 21:00 Ordered 5 mg PO BEDTIME Morphine Med 01/22/21 17:37 Active 2 mg IVPUSH Q4H PRN Promethazine [Phenergan] 12.5 mg Med 01/22/21 17:42 Active Sodium Chloride 0.9% [Normal Saline] 50 ml IV Q6H Rosuvastatin Calcium [Rosuvastatin Calcium] Med 01/22/21 18:00 Ordered 20 mg PO DAILY Sertraline [Zoloft] Med 01/22/21 18:00 Ordered 75 mg PO DAILY Sodium Chloride 0.9% [Normal Saline] 1,000 ml Med 01/22/21 12:45 Active IV ASDIRECTED Tamsulosin [Flomax] Med 01/22/21 18:00 Ordered 0.8 mg PO Q24H Tiotropium Med 01/22/21 18:00 Ordered 18 mcg INH Q24H Ubidecarenone Med 01/22/21 18:00 Ordered 100 mg PO DAILY bisacodyL [Dulcolax] Med 01/22/21 17:54 Ordered 10 mg PO DAILY PRN buPROPion [Wellbutrin XL] Med 01/23/21 08:00 Ordered 150 mg PO QAM Blood Culture x2 Reflex Set [OM.PC] Stat Oth 01/22/21 13:28 Ordered Isolation [COMM] Routine Oth 01/22/21 17:31 Ordered Medication Orders Acetaminophen (Acetaminophen 325 Mg Tab) 650 mg PO Q4H PRN PRN Reason: Pain Last Admin: 01/22/21 12:49 Dose: 650 mg Documented by: [id number] Heparin Sodium (Porcine) (Heparin Sodium 5,000 Units/Ml Vial) 5,000 units SUBCUT Q8H BERNARDO Sodium Chloride (Normal Saline) 1,000 mls @ 999 mls/hr IV ASDIRECTED BERNARDO Last Admin: 01/22/21 12:49 Dose: 999 mls/hr Documented by: [id number] Promethazine HCl 12.5 mg/ (Sodium Chloride) 50.5 mls @ 100 mls/hr IV Q6H PRN PRN Reason: Nausea/Vomiting Morphine Sulfate (Morphine 2 Mg/Ml Syringe) 2 mg IVPUSH Q4H PRN PRN Reason: Pain (moderate 4-6) Stop: 01/23/21 17:41 Assessment/Plan Comment:: Patient is a 75-year-old male with a history of CHF, COPD, atrial fibrillation, and anemia who was brought to the ER due to AMS. Assessment: AMS Acute on chronic hypoxic respiratory failure -on home oxygen 6L congestive heart failure exacerbation -BNP [id number] -Hx of alcoholic cardiomyopathy NSTEMI? -elevation of troponin, 0.985 -EKG no ST elevation but showed ST segment depression in V4 to V6 and with T wave inversion in leads II, 3 and aVF. COPD Paroxysmal atrial fibrillation with RVR amiodarone 150 mg Cardizem 10 mg IV bolus and then started a drip at 10 mg/h Anemia -MCV 109.7, MCHC 31.1 INKOLAY or NIKOLAY on CKD -K 5.1 -creatinine 2.9 on admission. It was 1.2 on Elevation of liver enzymes -AST 1519, ALT 2761, Al phos 70, Tbil 1.8 Plan: Comfort care only: -Morphine 2mg iv every 2 hours as needed -Ativan 1 mg IV every 4 hours as needed -Zofran 4 mg IV every 4 hours as needed -Scopolamine patch -Moses catheter - Mortality Measure Prognosis:: Poor
[2021-01-22] MEDS ORDERED: Non-Formulary Medication 1 Each (Melatonin [Melatonin] 5 MG Tablet) PO SCH (21:00)
[2021-01-22] MEDS ORDERED: ALPRAZolam 0.5 MG Tab PO SCH (21:00)
[2021-01-22] MEDS ORDERED: Formoterol/Mometasone 200-5 MCG 8.8 GM Inhaler IH SCH (21:00)
[2021-01-22] MEDS ORDERED: Heparin Sodium 5,000 Units/ML Vial SUBCUT SCH (22:00)
[2021-01-22] MEDS ORDERED: Ondansetron 4 MG in Sodium Chloride 0.9% 50 ML IV PRN (23:28)
[2021-01-22] MEDS ORDERED: Ondansetron 4 MG/2 ML SDV IVPUSH PRN (23:41)
[2021-01-23] MEDS ORDERED: buPROPion 150 MG Tab.ER PO SCH (08:00)
[2021-01-23] MEDS ORDERED: Cholecalciferol (Vitamin D3) 25 MCG Tab PO SCH (09:00)
[2021-01-23] MEDS: Scopolamine 1.5 MG Transdermal Patch TRDERM SCH (11:48)
--- NOTE | 2021-01-23 13:26 | PCM.PN ---
- General Info Date of Service: 01/23/21 Admission Dx/Problem (Free Text): Admission Diagnosis/Problem Admission Diagnosis/Problem Fever, unspecified Subjective Update: Patient is a 75-year-old male with a history of CHF, COPD, atrial fibrillation, and anemia who was brought to the ER due to AMS. Patient is lying in bed comfortably. No complaints He is now on comfort care only - Review of Systems Systems Review Comment:: General: Reports: Weakness HEENT: Reports: No Symptoms Pulmonary: Reports: No Symptoms Cardiovascular: Reports: No Symptoms Gastrointestinal: Reports: No Symptoms Genitourinary: Reports: No Symptoms Musculoskeletal: Reports: No Symptoms Skin: Reports: No Symptoms Psychiatric: Reports: No Symptoms Neurological: Reports: No Symptoms Hematologic/Lymphatic: Reports: No Symptoms Immunologic: Reports: No Symptoms - Patient Data Vitals - Most Recent: Last Vital Signs Temp 36.2 C 01/23/21 09:10 Pulse 84 01/23/21 09:10 Resp 18 01/23/21 09:10 BP 120/83 01/23/21 09:10 Pulse Ox 94 L 01/23/21 09:10 Weight - Most Recent: 84.822 kg I&O - Last 24 Hours: Intake & Output 01/22/21 01/23/21 01/23/21 22:59 06:59 14:59 Intake Total 240 Output Total 200 Balance -200 240 Lab Results Last 24 Hours: Laboratory Results - last 24 hr 01/22/21 01/22/21 Range/Units 11:58 14:48 Lactic Acid 2.1 H* (0.4-2.0) mmol/L GGT 20 (15-85) U/L Lipase 80 (73-393) U/L Ethyl Alcohol 0.00 (0.00) gm% Med Orders - Current: Current Medications Lorazepam (Lorazepam 2 Mg/Ml Sdv) 1 mg IVPUSH Q4H PRN PRN Reason: Agitation Miscellaneous Information (Remove Scopalamine Patch) 1 ea TRDERM Q72H [facility] Morphine Sulfate (Morphine 2 Mg/Ml Syringe) 2 mg IVPUSH Q2H PRN PRN Reason: Pain Stop: 01/23/21 23:27 Ondansetron HCl (Ondansetron 4 Mg/2 Ml Sdv) 4 mg IVPUSH Q4H PRN PRN Reason: Nausea/Vomiting Scopolamine (Scopolamine 1.5 Mg Transdermal Patch) 1.5 mg TRDERM Q72H [facility] Last Admin: 01/23/21 11:48 Dose: Not Given Documented by: Discontinued Medications Acetaminophen (Acetaminophen 325 Mg Tab) 650 mg PO Q4H PRN PRN Reason: Pain Last Admin: 01/22/21 12:49 Dose: 650 mg Documented by: Alprazolam (Alprazolam 0.5 Mg Tab) 0.5 mg PO BID [facility] Aspirin (Aspirin 81 Mg Tab.Ec) 81 mg PO Q24H [facility] Last Admin: 01/22/21 18:19 Dose: 81 mg Documented by: Bisacodyl (Bisacodyl 5 Mg Tab) 10 mg PO DAILY PRN PRN Reason: Constipation Bupropion HCl (Bupropion 150 Mg Tab.Er) 150 mg PO QAM [facility] Cholecalciferol (Cholecalciferol (Vitamin D3) 25 Mcg Tab) 25 mcg PO DAILY [facility] Cyanocobalamin (Cyanocobalamin (Vitamin B12) 1,000 Mcg Tab) 1,000 mcg PO WEEKLY [facility] Diltiazem HCl (Diltiazem 50 Mg/10 Ml Sdv) 10 mg IVPUSH ONETIME ONE Stop: 01/22/21 12:24 Last Admin: 01/22/21 12:36 Dose: 10 mg Documented by: Diltiazem HCl (Diltiazem 50 Mg/10 Ml Sdv) 10 mg IVPUSH ONETIME ONE Stop: 01/22/21 13:01 Last Admin: 01/22/21 13:05 Dose: 10 mg Documented by: Diltiazem HCl (Diltiazem 50 Mg/10 Ml Sdv) 20 mg IVPUSH ONETIME ONE Stop: 01/22/21 13:43 Last Admin: 01/22/21 13:46 Dose: 20 mg Documented by: Furosemide (Furosemide 20 Mg/2 Ml Vial) 20 mg IVPUSH ONETIME ONE Stop: 01/22/21 17:40 Last Admin: 01/22/21 18:20 Dose: 20 mg Documented by: Heparin Sodium (Porcine) (Heparin Sodium 5,000 Units/Ml Vial) 5,000 units SUBCUT Q8H [facility] Diltiazem HCl 100 mg/ Sodium (Chloride) 100 mls @ 10 mls/hr IV ASDIRECTED [facility] Last Infusion: 01/22/21 13:41 Dose: 15 mg/hr, 15 mls/hr Documented by: Sodium Chloride (Normal Saline) 1,000 mls @ 999 mls/hr IV ASDIRECTED [facility] Last Admin: 01/22/21 12:49 Dose: 999 mls/hr Documented by: Ceftriaxone Sodium 2 gm/ (Sodium Chloride) 100 mls @ 200 mls/hr IV ONETIME ONE Stop: 01/22/21 13:14 Last Admin: 01/22/21 13:05 Dose: 200 mls/hr Documented by: Amiodarone HCl/Dextrose (Nexterone In Dextrose 150 Mg/100 Ml) 100 mls @ 600 mls/hr IV .BOLUS ONE; Protocol Stop: 01/22/21 14:28 Last Admin: 01/22/21 14:29 Dose: 600 mls/hr Documented by: Amiodarone HCl/Dextrose (Nexterone In Dextrose 150 Mg/100 Ml) 100 mls @ 600 mls/hr IV .BOLUS ONE; Protocol Stop: 01/22/21 15:23 Last Admin: 01/22/21 15:26 Dose: 600 mls/hr Documented by: Promethazine HCl 12.5 mg/ (Sodium Chloride) 50.5 mls @ 100 mls/hr IV Q6H PRN PRN Reason: Nausea/Vomiting Mometasone Furoate/Formoterol Fumar (Formoterol/Mometasone 200-5 Mcg 8.8 Gm Inhaler) 0 puff IH BID [facility] Morphine Sulfate (Morphine 2 Mg/Ml Syringe) 2 mg IVPUSH Q4H PRN PRN Reason: Pain (moderate 4-6) Stop: 01/23/21 17:41 Non-Formulary Medication (Melatonin [Melatonin]) 5 mg PO BEDTIME [facility] Non-Formulary Medication (Rosuvastatin Calcium [Rosuvastatin Calcium]) 20 mg PO DAILY [facility] Last Admin: 01/22/21 22:00 Dose: Not Given Documented by: Non-Formulary Medication (Ubidecarenone) 100 mg PO DAILY [facility] Last Admin: 01/22/21 22:00 Dose: Not Given Documented by: Sertraline HCl (Sertraline 50 Mg Tab) 75 mg PO DAILY [facility] Last Admin: 01/22/21 18:20 Dose: 75 mg Documented by: Sodium Polystyrene Sulfonate (Sodium Polystyrene Sulfonate 15 Gm/60 Ml Susp 60 Ml Bot) 30 gm PO ONETIME ONE Stop: 01/22/21 17:41 Last Admin: 01/22/21 18:20 Dose: 30 gm Documented by: Tamsulosin HCl (Tamsulosin 0.4 Mg Cap.Er) 0.8 mg PO Q24H [facility] Last Admin: 01/22/21 18:19 Dose: 0.8 mg Documented by: Tiotropium [place] (Tiotropium [place] 4 Gm Inhalation [place] (2.5mcg/1 Dose; 10 Doses)) 0 gm INH Q24H [facility] Last Admin: 01/22/21 21:41 Dose: Not Given Documented by: - Exam Physical Findings Comments:: General: Cooperative HEENT: Conjunctiva Clear, Pupils Equal, Pupils Reactive Neck: Supple, Full Range of Motion Lungs: Normal Respiratory Effort, Decreased Breath Sounds, Rhonchi Cardiovascular: Irregular Rhythm GI/Abdominal Exam: Normal Bowel Sounds, Soft, No Organomegaly Extremities: Normal Inspection, No Pedal Edema Neuro Extensive - Mental Status: Alert, Disorientation to Place, Disorientation to Time, Opens Eyes to Commands Psychiatric: Other (Seems to have normal affect) - Patient Data Lab Results Last 24 hrs: Laboratory Results - last 24 hr 01/22/21 01/22/21 Range/Units 11:58 14:48 Lactic Acid 2.1 H* (0.4-2.0) mmol/L GGT 20 (15-85) U/L Lipase 80 (73-393) U/L Ethyl Alcohol 0.00 (0.00) gm% Result Diagrams: 01/22/21 11:58 01/22/21 11:58 Sepsis Event Note - Evaluation Sepsis Screening Result: No Definite Risk - Focused Exam Vital Signs: Vital Signs Temp Pulse Resp BP Pulse Ox 01/23/21 09:10 36.2 C 84 18 120/83 94 L - Problem List Review Problem List Initiated/Reviewed/Updated: Yes - My Orders Last 24 Hours: My Active Orders 01/22/21 17:20 Consult to Case Management/Svp [CONS] Routine 01/22/21 17:37 Bedrest Bedside Commode [RC] 10,22 01/22/21 17:38 VTE/DVT Education [RC] 0900 Vital Signs [RC] QSHIFT 01/22/21 18:49 Code Status [Resuscitation Status] Routine 01/22/21 23:26 Morphine 2 mg IVPUSH Q2H PRN 01/22/21 23:27 LORazepam [Ativan] 1 mg IVPUSH Q4H PRN 01/22/21 23:30 Scopolamine [Transderm-Scop] 1.5 mg TRDERM Q72H 01/22/21 23:41 Ondansetron [Zofran] 4 mg IVPUSH Q4H PRN 01/23/21 08:35 Oxygen Therapy Adult [Oxygen Therapy] [RC] ASDIRECTED 01/23/21 Dinner Regular Diet [DIET] 01/25/21 23:30 Remove Patch 1 ea TRDERM Q72H - Plan Plan:: Patient is a 75-year-old male with a history of CHF, COPD, atrial fibrillation, and anemia who was brought to the ER due to AMS. Assessment: AMS Acute on chronic hypoxic respiratory failure -on home oxygen 6L congestive heart failure exacerbation -BNP 28532 -Hx of alcoholic cardiomyopathy NSTEMI? -elevation of troponin, 0.985 -EKG no ST elevation but showed ST segment depression in V4 to V6 and with T wave inversion in leads II, 3 and aVF. COPD Paroxysmal atrial fibrillation with RVR Anemia -MCV 109.7, MCHC 31.1 NIKOLAY or NIKOLAY on CKD -K 5.1 -creatinine 2.9 on admission. It was 1.2 on Elevation of liver enzymes -AST 1519, ALT 2761, Al phos 70, Tbil 1.8 Plan: Comfort care only: -Morphine 2mg iv every 2 hours as needed -Ativan 1 mg IV every 4 hours as needed -Zofran 4 mg IV every 4 hours as needed -Scopolamine patch -[facility]oses catheter
[2021-01-23] MEDS: LORazepam 2 MG/ML SDV IVPUSH PRN ×2 (13:44→17:07)
--- NOTE | 2021-01-24 13:17 | PCM.PN ---
- General Info Date of Service: 01/24/21 Admission Dx/Problem (Free Text): Admission Diagnosis/Problem Admission Diagnosis/Problem Fever, unspecified Subjective Update: Patient is a 75-year-old male with a history of CHF, COPD, atrial fibrillation, and anemia who was brought to the ER due to AMS. Patient is lying in bed comfortably. No complaints He is now on comfort care only field marketing director Jaycee spoke to who agreed to put pt on oxygen for comfort - Review of Systems Systems Review Comment:: General: Reports: No Symptoms HEENT: Reports: No Symptoms Pulmonary: Reports: No Symptoms Cardiovascular: Reports: No Symptoms Gastrointestinal: Reports: No Symptoms Genitourinary: Reports: No Symptoms Musculoskeletal: Reports: No Symptoms Skin: Reports: No Symptoms Psychiatric: Reports: No Symptoms Neurological: Reports: No Symptoms Hematologic/Lymphatic: Reports: No Symptoms Immunologic: Reports: No Symptoms - Patient Data Vitals - Most Recent: Last Vital Signs Temp 36.9 C 01/23/21 20:22 Pulse 117 H 01/24/21 11:25 Resp 24 H 01/24/21 11:25 BP 95/65 01/24/21 07:24 Pulse Ox 73 L 01/24/21 11:25 Weight - Most Recent: 84.822 kg I&O - Last 24 Hours: Intake & Output 01/23/21 01/24/21 01/24/21 22:59 06:59 14:59 Intake Total 400 Balance 400 Med Orders - Current: Current Medications Lorazepam (Lorazepam 2 Mg/Ml Sdv) 1 mg IVPUSH Q4H PRN PRN Reason: Agitation Last Admin: 01/23/21 17:07 Dose: 1 mg Documented by: Miscellaneous Information (Remove Scopalamine Patch) 1 ea TRDERM Q72H [facility] Ondansetron HCl (Ondansetron 4 Mg/2 Ml Sdv) 4 mg IVPUSH Q4H PRN PRN Reason: Nausea/Vomiting Scopolamine (Scopolamine 1.5 Mg Transdermal Patch) 1.5 mg TRDERM Q72H [facility] Last Admin: 01/23/21 11:48 Dose: Not Given Documented by: Discontinued Medications Acetaminophen (Acetaminophen 325 Mg Tab) 650 mg PO Q4H PRN PRN Reason: Pain Last Admin: 01/22/21 12:49 Dose: 650 mg Documented by: Alprazolam (Alprazolam 0.5 Mg Tab) 0.5 mg PO BID [facility] Aspirin (Aspirin 81 Mg Tab.Ec) 81 mg PO Q24H [facility] Last Admin: 01/22/21 18:19 Dose: 81 mg Documented by: Bisacodyl (Bisacodyl 5 Mg Tab) 10 mg PO DAILY PRN PRN Reason: Constipation Bupropion HCl (Bupropion 150 Mg Tab.Er) 150 mg PO QAM [facility] Cholecalciferol (Cholecalciferol (Vitamin D3) 25 Mcg Tab) 25 mcg PO DAILY [facility] Cyanocobalamin (Cyanocobalamin (Vitamin B12) 1,000 Mcg Tab) 1,000 mcg PO WEEKLY [facility] Diltiazem HCl (Diltiazem 50 Mg/10 Ml Sdv) 10 mg IVPUSH ONETIME ONE Stop: 01/22/21 12:24 Last Admin: 01/22/21 12:36 Dose: 10 mg Documented by: Diltiazem HCl (Diltiazem 50 Mg/10 Ml Sdv) 10 mg IVPUSH ONETIME ONE Stop: 01/22/21 13:01 Last Admin: 01/22/21 13:05 Dose: 10 mg Documented by: Diltiazem HCl (Diltiazem 50 Mg/10 Ml Sdv) 20 mg IVPUSH ONETIME ONE Stop: 01/22/21 13:43 Last Admin: 01/22/21 13:46 Dose: 20 mg Documented by: Furosemide (Furosemide 20 Mg/2 Ml Vial) 20 mg IVPUSH ONETIME ONE Stop: 01/22/21 17:40 Last Admin: 01/22/21 18:20 Dose: 20 mg Documented by: Heparin Sodium (Porcine) (Heparin Sodium 5,000 Units/Ml Vial) 5,000 units SUBCUT Q8H [facility] Diltiazem HCl 100 mg/ Sodium (Chloride) 100 mls @ 10 mls/hr IV ASDIRECTED [facility] Last Infusion: 01/22/21 13:41 Dose: 15 mg/hr, 15 mls/hr Documented by: Sodium Chloride (Normal Saline) 1,000 mls @ 999 mls/hr IV ASDIRECTED [facility] Last Admin: 01/22/21 12:49 Dose: 999 mls/hr Documented by: Ceftriaxone Sodium 2 gm/ (Sodium Chloride) 100 mls @ 200 mls/hr IV ONETIME ONE Stop: 01/22/21 13:14 Last Admin: 01/22/21 13:05 Dose: 200 mls/hr Documented by: Amiodarone HCl/Dextrose (Nexterone In Dextrose 150 Mg/100 Ml) 100 mls @ 600 mls/hr IV .BOLUS ONE; Protocol Stop: 01/22/21 14:28 Last Admin: 01/22/21 14:29 Dose: 600 mls/hr Documented by: Amiodarone HCl/Dextrose (Nexterone In Dextrose 150 Mg/100 Ml) 100 mls @ 600 mls/hr IV .BOLUS ONE; Protocol Stop: 01/22/21 15:23 Last Admin: 01/22/21 15:26 Dose: 600 mls/hr Documented by: Promethazine HCl 12.5 mg/ (Sodium Chloride) 50.5 mls @ 100 mls/hr IV Q6H PRN PRN Reason: Nausea/Vomiting Mometasone Furoate/Formoterol Fumar (Formoterol/Mometasone 200-5 Mcg 8.8 Gm Inhaler) 0 puff IH BID [facility] Morphine Sulfate (Morphine 2 Mg/Ml Syringe) 2 mg IVPUSH Q4H PRN PRN Reason: Pain (moderate 4-6) Stop: 01/23/21 17:41 Morphine Sulfate (Morphine 2 Mg/Ml Syringe) 2 mg IVPUSH Q2H PRN PRN Reason: Pain Stop: 01/23/21 23:27 Non-Formulary Medication (Melatonin [Melatonin]) 5 mg PO BEDTIME [facility] Non-Formulary Medication (Rosuvastatin Calcium [Rosuvastatin Calcium]) 20 mg PO DAILY [facility] Last Admin: 01/22/21 22:00 Dose: Not Given Documented by: Non-Formulary Medication (Ubidecarenone) 100 mg PO DAILY [facility] Last Admin: 01/22/21 22:00 Dose: Not Given Documented by: Sertraline HCl (Sertraline 50 Mg Tab) 75 mg PO DAILY [facility] Last Admin: 01/22/21 18:20 Dose: 75 mg Documented by: Sodium Polystyrene Sulfonate (Sodium Polystyrene Sulfonate 15 Gm/60 Ml Susp 60 Ml Bot) 30 gm PO ONETIME ONE Stop: 01/22/21 17:41 Last Admin: 01/22/21 18:20 Dose: 30 gm Documented by: Tamsulosin HCl (Tamsulosin 0.4 Mg Cap.Er) 0.8 mg PO Q24H [facility] Last Admin: 01/22/21 18:19 Dose: 0.8 mg Documented by: Tiotropium [place] (Tiotropium [place] 4 Gm Inhalation [place] (2.5mcg/1 Dose; 10 Doses)) 0 gm INH Q24H [facility] Last Admin: 01/22/21 21:41 Dose: Not Given Documented by: - Exam Physical Findings Comments:: Physical Exam: General: Cooperative HEENT: Conjunctiva Clear, Pupils Equal, Pupils Reactive Neck: Supple, Full Range of Motion Lungs: Normal Respiratory Effort, Decreased Breath Sounds, Rhonchi Cardiovascular: Irregular Rhythm GI/Abdominal Exam: Normal Bowel Sounds, Soft, No Organomegaly Extremities: Normal Inspection, No Pedal Edema Neuro Extensive - Mental Status: Alert, Disorientation to Place, Disorientation to Time, Opens Eyes to Commands Psychiatric: Other (Seems to have normal affect) - Patient Data Result Diagrams: 01/22/21 11:58 01/22/21 11:58 Sepsis Event Note - Evaluation Sepsis Screening Result: No Definite Risk - Focused Exam Vital Signs: Vital Signs Pulse Resp BP Pulse Ox 01/24/21 11:25 117 H 24 H 73 L 01/24/21 07:24 108 H 95/65 48 L - Problem List Review Problem List Initiated/Reviewed/Updated: Yes - My Orders Last 24 Hours: My Active Orders 01/23/21 Dinner Regular Diet [DIET] 01/24/21 13:08 Oxygen Therapy [RC] PRN 01/25/21 23:30 Remove Patch 1 ea TRDERM Q72H - Plan Plan:: Patient is a 75-year-old male with a history of CHF, COPD, atrial fibrillation, and anemia who was brought to the ER due to AMS. Assessment: AMS Acute on chronic hypoxic respiratory failure -on home oxygen 6L congestive heart failure exacerbation -BNP 30952 -Hx of alcoholic cardiomyopathy NSTEMI? -elevation of troponin, 0.985 -EKG no ST elevation but showed ST segment depression in V4 to V6 and with T wave inversion in leads II, 3 and aVF. COPD Paroxysmal atrial fibrillation with RVR Anemia -MCV 109.7, MCHC 31.1 NIKOLAY or NIKOLAY on CKD -K 5.1 -creatinine 2.9 on admission. It was 1.2 on Elevation of liver enzymes -AST 1519, ALT 2761, Al phos 70, Tbil 1.8 Plan: Comfort care only: -Morphine 2mg iv every 2 hours as needed -Ativan 1 mg IV every 4 hours as needed -Zofran 4 mg IV every 4 hours as needed -Scopolamine patch -[facility]oses catheter -oxygen for comfort
--- NOTE | 2021-01-25 11:27 | PCM.PN ---
- General Info Date of Service: 01/25/21 Admission Dx/Problem (Free Text): Admission Diagnosis/Problem Admission Diagnosis/Problem Fever, unspecified Subjective Update: Patient is a 75-year-old male with a history of CHF, COPD, atrial fibrillation, and anemia who was brought to the ER due to AMS. Patient is lying in bed comfortably. No complaints He is now on comfort care only He is now on oxygen for comfort - Review of Systems Systems Review Comment:: General: Reports: No Symptoms HEENT: Reports: No Symptoms Pulmonary: Reports: No Symptoms Cardiovascular: Reports: No Symptoms Gastrointestinal: Reports: No Symptoms Genitourinary: Reports: No Symptoms Musculoskeletal: Reports: No Symptoms Skin: Reports: No Symptoms Psychiatric: Reports: No Symptoms Neurological: Reports: No Symptoms Hematologic/Lymphatic: Reports: No Symptoms Immunologic: Reports: No Symptoms - Patient Data Vitals - Most Recent: Last Vital Signs Temp 36.8 C 01/24/21 21:17 Pulse 85 01/24/21 21:17 Resp 13 01/24/21 21:17 BP 113/62 01/24/21 21:17 Pulse Ox 99 01/24/21 21:17 Weight - Most Recent: 84.822 kg I&O - Last 24 Hours: Intake & Output 01/24/21 01/25/21 01/25/21 22:59 06:59 14:59 Intake Total 390 Balance 390 Med Orders - Current: Current Medications Lorazepam (Lorazepam 2 Mg/Ml Sdv) 1 mg IVPUSH Q4H PRN PRN Reason: Agitation Last Admin: 01/23/21 17:07 Dose: 1 mg Documented by: Miscellaneous Information (Remove Scopalamine Patch) 1 ea TRDERM Q72H [facility] Ondansetron HCl (Ondansetron 4 Mg/2 Ml Sdv) 4 mg IVPUSH Q4H PRN PRN Reason: Nausea/Vomiting Scopolamine (Scopolamine 1.5 Mg Transdermal Patch) 1.5 mg TRDERM Q72H [facility] Last Admin: 01/23/21 11:48 Dose: Not Given Documented by: Discontinued Medications Acetaminophen (Acetaminophen 325 Mg Tab) 650 mg PO Q4H PRN PRN Reason: Pain Last Admin: 01/22/21 12:49 Dose: 650 mg Documented by: Alprazolam (Alprazolam 0.5 Mg Tab) 0.5 mg PO BID [facility] Aspirin (Aspirin 81 Mg Tab.Ec) 81 mg PO Q24H [facility] Last Admin: 01/22/21 18:19 Dose: 81 mg Documented by: Bisacodyl (Bisacodyl 5 Mg Tab) 10 mg PO DAILY PRN PRN Reason: Constipation Bupropion HCl (Bupropion 150 Mg Tab.Er) 150 mg PO QAM [facility] Cholecalciferol (Cholecalciferol (Vitamin D3) 25 Mcg Tab) 25 mcg PO DAILY [facility] Cyanocobalamin (Cyanocobalamin (Vitamin B12) 1,000 Mcg Tab) 1,000 mcg PO WEEKLY [facility] Diltiazem HCl (Diltiazem 50 Mg/10 Ml Sdv) 10 mg IVPUSH ONETIME ONE Stop: 01/22/21 12:24 Last Admin: 01/22/21 12:36 Dose: 10 mg Documented by: Diltiazem HCl (Diltiazem 50 Mg/10 Ml Sdv) 10 mg IVPUSH ONETIME ONE Stop: 01/22/21 13:01 Last Admin: 01/22/21 13:05 Dose: 10 mg Documented by: Diltiazem HCl (Diltiazem 50 Mg/10 Ml Sdv) 20 mg IVPUSH ONETIME ONE Stop: 01/22/21 13:43 Last Admin: 01/22/21 13:46 Dose: 20 mg Documented by: Furosemide (Furosemide 20 Mg/2 Ml Vial) 20 mg IVPUSH ONETIME ONE Stop: 01/22/21 17:40 Last Admin: 01/22/21 18:20 Dose: 20 mg Documented by: Heparin Sodium (Porcine) (Heparin Sodium 5,000 Units/Ml Vial) 5,000 units SUBCUT Q8H [facility] Diltiazem HCl 100 mg/ Sodium (Chloride) 100 mls @ 10 mls/hr IV ASDIRECTED [facility] Last Infusion: 01/22/21 13:41 Dose: 15 mg/hr, 15 mls/hr Documented by: Sodium Chloride (Normal Saline) 1,000 mls @ 999 mls/hr IV ASDIRECTED [facility] Last Admin: 01/22/21 12:49 Dose: 999 mls/hr Documented by: Ceftriaxone Sodium 2 gm/ (Sodium Chloride) 100 mls @ 200 mls/hr IV ONETIME ONE Stop: 01/22/21 13:14 Last Admin: 01/22/21 13:05 Dose: 200 mls/hr Documented by: Amiodarone HCl/Dextrose (Nexterone In Dextrose 150 Mg/100 Ml) 100 mls @ 600 mls/hr IV .BOLUS ONE; Protocol Stop: 01/22/21 14:28 Last Admin: 01/22/21 14:29 Dose: 600 mls/hr Documented by: Amiodarone HCl/Dextrose (Nexterone In Dextrose 150 Mg/100 Ml) 100 mls @ 600 mls/hr IV .BOLUS ONE; Protocol Stop: 01/22/21 15:23 Last Admin: 01/22/21 15:26 Dose: 600 mls/hr Documented by: Promethazine HCl 12.5 mg/ (Sodium Chloride) 50.5 mls @ 100 mls/hr IV Q6H PRN PRN Reason: Nausea/Vomiting Mometasone Furoate/Formoterol Fumar (Formoterol/Mometasone 200-5 Mcg 8.8 Gm Inhaler) 0 puff IH BID [facility] Morphine Sulfate (Morphine 2 Mg/Ml Syringe) 2 mg IVPUSH Q4H PRN PRN Reason: Pain (moderate 4-6) Stop: 01/23/21 17:41 Morphine Sulfate (Morphine 2 Mg/Ml Syringe) 2 mg IVPUSH Q2H PRN PRN Reason: Pain Stop: 01/23/21 23:27 Non-Formulary Medication (Melatonin [Melatonin]) 5 mg PO BEDTIME [facility] Non-Formulary Medication (Rosuvastatin Calcium [Rosuvastatin Calcium]) 20 mg PO DAILY [facility] Last Admin: 01/22/21 22:00 Dose: Not Given Documented by: Non-Formulary Medication (Ubidecarenone) 100 mg PO DAILY [facility] Last Admin: 01/22/21 22:00 Dose: Not Given Documented by: Sertraline HCl (Sertraline 50 Mg Tab) 75 mg PO DAILY [facility] Last Admin: 01/22/21 18:20 Dose: 75 mg Documented by: Sodium Polystyrene Sulfonate (Sodium Polystyrene Sulfonate 15 Gm/60 Ml Susp 60 Ml Bot) 30 gm PO ONETIME ONE Stop: 01/22/21 17:41 Last Admin: 01/22/21 18:20 Dose: 30 gm Documented by: Tamsulosin HCl (Tamsulosin 0.4 Mg Cap.Er) 0.8 mg PO Q24H [facility] Last Admin: 01/22/21 18:19 Dose: 0.8 mg Documented by: Tiotropium [place] (Tiotropium [place] 4 Gm Inhalation [place] (2.5mcg/1 Dose; 10 Doses)) 0 gm INH Q24H [facility] Last Admin: 01/22/21 21:41 Dose: Not Given Documented by: - Exam Physical Findings Comments:: General: Cooperative can answer simple questions HEENT: Conjunctiva Clear, Pupils Equal, Pupils Reactive Neck: Supple, Full Range of Motion Lungs: Normal Respiratory Effort, Decreased Breath Sounds, Rhonchi Cardiovascular: Irregular Rhythm GI/Abdominal Exam: Normal Bowel Sounds, Soft, No Organomegaly Extremities: Normal Inspection, No Pedal Edema Neuro Extensive - Mental Status: Alert, Disorientation to Place, Disorientation to Time Psychiatric: Other (Seems to have normal affect) - Patient Data Result Diagrams: 01/22/21 11:58 01/22/21 11:58 Sepsis Event Note - Evaluation Sepsis Screening Result: No Definite Risk - Problem List Review Problem List Initiated/Reviewed/Updated: Yes - My Orders Last 24 Hours: My Active Orders 01/24/21 13:08 Oxygen Therapy [RC] PRN 01/25/21 23:30 Remove Patch 1 ea TRDERM Q72H - Plan Plan:: Patient is a 75-year-old male with a history of CHF, COPD, atrial fibrillation, and anemia who was brought to the ER due to AMS. Assessment: AMS Acute on chronic hypoxic respiratory failure -on home oxygen 6L congestive heart failure exacerbation -BNP 25356 -Hx of alcoholic cardiomyopathy NSTEMI? -elevation of troponin, 0.985 -EKG no ST elevation but showed ST segment depression in V4 to V6 and with T wave inversion in leads II, 3 and aVF. COPD Paroxysmal atrial fibrillation with RVR Anemia -MCV 109.7, MCHC 31.1 NIKOLAY or NIKOLAY on CKD -K 5.1 -creatinine 2.9 on admission. It was 1.2 on Elevation of liver enzymes -AST 1519, ALT 2761, Al phos 70, Tbil 1.8 Plan: Comfort care only: -Morphine 2mg iv every 2 hours as needed -Ativan 1 mg IV every 4 hours as needed -Zofran 4 mg IV every 4 hours as needed -Scopolamine patch -[facility]oses catheter -oxygen for comfort Disposition: Placement Length of stay greater than 96 hours due to placement
[2021-01-25] MEDS: LORazepam 2 MG/ML SDV IVPUSH PRN (16:08)
[2021-01-26] MEDS: Scopolamine 1.5 MG Transdermal Patch TRDERM SCH (01:04)
--- NOTE | 2021-01-26 12:56 | PCM.PN ---
- General Info Date of Service: 01/26/21 Admission Dx/Problem (Free Text): Admission Diagnosis/Problem Admission Diagnosis/Problem Fever, unspecified Subjective Update: Patient is a 75-year-old male with a history of CHF, COPD, atrial fibrillation, and anemia who was brought to the ER due to AMS. When I saw him this morning, he was sitting on a chair comfortably. No complaints He is now on comfort care only He is now on oxygen for comfort - Review of Systems Systems Review Comment:: General: Reports: No Symptoms HEENT: Reports: No Symptoms Pulmonary: Reports: No Symptoms Cardiovascular: Reports: No Symptoms Gastrointestinal: Reports: No Symptoms Genitourinary: Reports: No Symptoms Musculoskeletal: Reports: No Symptoms Skin: Reports: No Symptoms Psychiatric: Reports: No Symptoms Neurological: Reports: No Symptoms Hematologic/Lymphatic: Reports: No Symptoms Immunologic: Reports: No Symptoms - Patient Data Vitals - Most Recent: Last Vital Signs Temp 36.8 C 01/25/21 21:22 Pulse 63 01/25/21 21:28 Resp 14 01/25/21 21:22 BP 109/70 01/25/21 21:22 Pulse Ox 93 L 01/25/21 21:28 Weight - Most Recent: 84.822 kg I&O - Last 24 Hours: Intake & Output 01/25/21 01/26/21 01/26/21 22:59 06:59 14:59 Intake Total 240 Balance 240 Med Orders - Current: Current Medications Lorazepam (Lorazepam 2 Mg/Ml Sdv) 1 mg IVPUSH Q4H PRN PRN Reason: Agitation Last Admin: 01/25/21 16:08 Dose: 1 mg Documented by: Miscellaneous Information (Remove Scopalamine Patch) 1 ea TRDERM Q72H [facility] Last Admin: 01/26/21 01:02 Dose: Not Given Documented by: Ondansetron HCl (Ondansetron 4 Mg/2 Ml Sdv) 4 mg IVPUSH Q4H PRN PRN Reason: Nausea/Vomiting Scopolamine (Scopolamine 1.5 Mg Transdermal Patch) 1.5 mg TRDERM Q72H [facility] Last Admin: 01/26/21 01:04 Dose: Not Given Documented by: Discontinued Medications Acetaminophen (Acetaminophen 325 Mg Tab) 650 mg PO Q4H PRN PRN Reason: Pain Last Admin: 01/22/21 12:49 Dose: 650 mg Documented by: Alprazolam (Alprazolam 0.5 Mg Tab) 0.5 mg PO BID [facility] Aspirin (Aspirin 81 Mg Tab.Ec) 81 mg PO Q24H [facility] Last Admin: 01/22/21 18:19 Dose: 81 mg Documented by: Bisacodyl (Bisacodyl 5 Mg Tab) 10 mg PO DAILY PRN PRN Reason: Constipation Bupropion HCl (Bupropion 150 Mg Tab.Er) 150 mg PO QAM [facility] Cholecalciferol (Cholecalciferol (Vitamin D3) 25 Mcg Tab) 25 mcg PO DAILY [facility] Cyanocobalamin (Cyanocobalamin (Vitamin B12) 1,000 Mcg Tab) 1,000 mcg PO WEEKLY [facility] Diltiazem HCl (Diltiazem 50 Mg/10 Ml Sdv) 10 mg IVPUSH ONETIME ONE Stop: 01/22/21 12:24 Last Admin: 01/22/21 12:36 Dose: 10 mg Documented by: Diltiazem HCl (Diltiazem 50 Mg/10 Ml Sdv) 10 mg IVPUSH ONETIME ONE Stop: 01/22/21 13:01 Last Admin: 01/22/21 13:05 Dose: 10 mg Documented by: Diltiazem HCl (Diltiazem 50 Mg/10 Ml Sdv) 20 mg IVPUSH ONETIME ONE Stop: 01/22/21 13:43 Last Admin: 01/22/21 13:46 Dose: 20 mg Documented by: Furosemide (Furosemide 20 Mg/2 Ml Vial) 20 mg IVPUSH ONETIME ONE Stop: 01/22/21 17:40 Last Admin: 01/22/21 18:20 Dose: 20 mg Documented by: Heparin Sodium (Porcine) (Heparin Sodium 5,000 Units/Ml Vial) 5,000 units SUBCUT Q8H [facility] Diltiazem HCl 100 mg/ Sodium (Chloride) 100 mls @ 10 mls/hr IV ASDIRECTED [facility] Last Infusion: 01/22/21 13:41 Dose: 15 mg/hr, 15 mls/hr Documented by: Sodium Chloride (Normal Saline) 1,000 mls @ 999 mls/hr IV ASDIRECTED [facility] Last Admin: 01/22/21 12:49 Dose: 999 mls/hr Documented by: Ceftriaxone Sodium 2 gm/ (Sodium Chloride) 100 mls @ 200 mls/hr IV ONETIME ONE Stop: 01/22/21 13:14 Last Admin: 01/22/21 13:05 Dose: 200 mls/hr Documented by: Amiodarone HCl/Dextrose (Nexterone In Dextrose 150 Mg/100 Ml) 100 mls @ 600 mls/hr IV .BOLUS ONE; Protocol Stop: 01/22/21 14:28 Last Admin: 01/22/21 14:29 Dose: 600 mls/hr Documented by: Amiodarone HCl/Dextrose (Nexterone In Dextrose 150 Mg/100 Ml) 100 mls @ 600 mls/hr IV .BOLUS ONE; Protocol Stop: 01/22/21 15:23 Last Admin: 01/22/21 15:26 Dose: 600 mls/hr Documented by: Promethazine HCl 12.5 mg/ (Sodium Chloride) 50.5 mls @ 100 mls/hr IV Q6H PRN PRN Reason: Nausea/Vomiting Mometasone Furoate/Formoterol Fumar (Formoterol/Mometasone 200-5 Mcg 8.8 Gm Inhaler) 0 puff IH BID [facility] Morphine Sulfate (Morphine 2 Mg/Ml Syringe) 2 mg IVPUSH Q4H PRN PRN Reason: Pain (moderate 4-6) Stop: 01/23/21 17:41 Morphine Sulfate (Morphine 2 Mg/Ml Syringe) 2 mg IVPUSH Q2H PRN PRN Reason: Pain Stop: 01/23/21 23:27 Non-Formulary Medication (Melatonin [Melatonin]) 5 mg PO BEDTIME [facility] Non-Formulary Medication (Rosuvastatin Calcium [Rosuvastatin Calcium]) 20 mg PO DAILY [facility] Last Admin: 01/22/21 22:00 Dose: Not Given Documented by: Non-Formulary Medication (Ubidecarenone) 100 mg PO DAILY [facility] Last Admin: 01/22/21 22:00 Dose: Not Given Documented by: Sertraline HCl (Sertraline 50 Mg Tab) 75 mg PO DAILY [facility] Last Admin: 01/22/21 18:20 Dose: 75 mg Documented by: Sodium Polystyrene Sulfonate (Sodium Polystyrene Sulfonate 15 Gm/60 Ml Susp 60 Ml Bot) 30 gm PO ONETIME ONE Stop: 01/22/21 17:41 Last Admin: 01/22/21 18:20 Dose: 30 gm Documented by: Tamsulosin HCl (Tamsulosin 0.4 Mg Cap.Er) 0.8 mg PO Q24H [facility] Last Admin: 01/22/21 18:19 Dose: 0.8 mg Documented by: Tiotropium [place] (Tiotropium [place] 4 Gm Inhalation [place] (2.5mcg/1 Dose; 10 Doses)) 0 gm INH Q24H [facility] Last Admin: 01/22/21 21:41 Dose: Not Given Documented by: - Exam Physical Findings Comments:: General: Cooperative can answer simple questions HEENT: Conjunctiva Clear, Pupils Equal, Pupils Reactive Neck: Supple, Full Range of Motion Lungs: Normal Respiratory Effort, Decreased Breath Sounds, Rhonchi Cardiovascular: Irregular Rhythm GI/Abdominal Exam: Normal Bowel Sounds, Soft, No Organomegaly Extremities: Normal Inspection, No Pedal Edema Neuro Extensive - Mental Status: Alert, Disorientation to Place, Disorientation to Time Psychiatric: Other (Seems to have normal affect) - Patient Data Result Diagrams: 01/22/21 11:58 01/22/21 11:58 Sepsis Event Note - Evaluation Sepsis Screening Result: No Definite Risk - Problem List Review Problem List Initiated/Reviewed/Updated: Yes - My Orders Last 24 Hours: My Active Orders 01/25/21 23:30 Remove Patch 1 ea TRDERM Q72H - Plan Plan:: Patient is a 75-year-old male with a history of CHF, COPD, atrial fibrillation, and anemia who was brought to the ER due to AMS. Assessment: AMS Acute on chronic hypoxic respiratory failure -on home oxygen 6L congestive heart failure exacerbation -BNP 63581 -Hx of alcoholic cardiomyopathy NSTEMI? -elevation of troponin, 0.985 -EKG no ST elevation but showed ST segment depression in V4 to V6 and with T wave inversion in leads II, 3 and aVF. COPD Paroxysmal atrial fibrillation with RVR Anemia -MCV 109.7, MCHC 31.1 NIKOLAY or NIKOLAY on CKD -K 5.1 -creatinine 2.9 on admission. It was 1.2 on Elevation of liver enzymes -AST 1519, ALT 2761, Al phos 70, Tbil 1.8 Plan: Comfort care only: -Morphine 2mg iv every 2 hours as needed -Ativan 1 mg IV every 4 hours as needed -Zofran 4 mg IV every 4 hours as needed -Scopolamine patch -Moses catheter -oxygen for comfort Disposition: Placement-next week Length of stay greater than 96 hours due to placement
[2021-01-26] MEDS: LORazepam 2 MG/ML SDV IVPUSH PRN (15:54)
[2021-01-26] MEDS ORDERED: LORazepam 1 MG Tab PO PRN (16:45)
[2021-01-26] MEDS ORDERED: Morphine 10 MG/0.5 ML Oral Syringe PO PRN (16:46)
[2021-01-26] MEDS ORDERED: Ondansetron 4 MG Tab.DIS PO PRN (16:47)
--- NOTE | 2021-01-27 08:47 | PCM.PN ---
<Emanuel Xie - Last Filed: 01/27/21 11:37> - General Info Date of Service: 01/27/21 Admission Dx/Problem (Free Text): Admission Diagnosis/Problem Admission Diagnosis/Problem Fever, unspecified - Patient Data Vitals - Most Recent: Last Vital Signs Temp 97.7 F 01/27/21 08:19 Pulse 85 01/27/21 08:19 Resp 18 01/27/21 08:19 BP 116/65 01/27/21 08:19 Pulse Ox 95 01/27/21 08:19 Weight - Most Recent: 84.822 kg I&O - Last 24 Hours: Intake & Output 01/26/21 01/27/21 01/27/21 22:59 06:59 14:59 Intake Total 600 Balance 600 Med Orders - Current: Current Medications Lorazepam (Lorazepam 1 Mg Tab) 1 mg PO Q4H PRN PRN Reason: Anxiety Last Admin: 01/26/21 23:17 Dose: 1 mg Documented by: Miscellaneous Information (Remove Scopalamine Patch) 1 ea TRDERM Q72H [facility] Last Admin: 01/26/21 01:02 Dose: Not Given Documented by: Morphine Sulfate (Morphine 10 Mg/0.5 Ml Oral Syringe) 10 mg PO Q6H PRN PRN Reason: Pain Ondansetron HCl (Ondansetron 4 Mg Tab.Dis) 4 mg PO Q4H PRN PRN Reason: Nausea/Vomiting Scopolamine (Scopolamine 1.5 Mg Transdermal Patch) 1.5 mg TRDERM Q72H [facility] Last Admin: 01/26/21 01:04 Dose: Not Given Documented by: Discontinued Medications Acetaminophen (Acetaminophen 325 Mg Tab) 650 mg PO Q4H PRN PRN Reason: Pain Last Admin: 01/22/21 12:49 Dose: 650 mg Documented by: Alprazolam (Alprazolam 0.5 Mg Tab) 0.5 mg PO BID [facility] Aspirin (Aspirin 81 Mg Tab.Ec) 81 mg PO Q24H [facility] Last Admin: 01/22/21 18:19 Dose: 81 mg Documented by: Bisacodyl (Bisacodyl 5 Mg Tab) 10 mg PO DAILY PRN PRN Reason: Constipation Bupropion HCl (Bupropion 150 Mg Tab.Er) 150 mg PO QAM [facility] Cholecalciferol (Cholecalciferol (Vitamin D3) 25 Mcg Tab) 25 mcg PO DAILY [facility] Cyanocobalamin (Cyanocobalamin (Vitamin B12) 1,000 Mcg Tab) 1,000 mcg PO WEEKLY [facility] Diltiazem HCl (Diltiazem 50 Mg/10 Ml Sdv) 10 mg IVPUSH ONETIME ONE Stop: 01/22/21 12:24 Last Admin: 01/22/21 12:36 Dose: 10 mg Documented by: Diltiazem HCl (Diltiazem 50 Mg/10 Ml Sdv) 10 mg IVPUSH ONETIME ONE Stop: 01/22/21 13:01 Last Admin: 01/22/21 13:05 Dose: 10 mg Documented by: Diltiazem HCl (Diltiazem 50 Mg/10 Ml Sdv) 20 mg IVPUSH ONETIME ONE Stop: 01/22/21 13:43 Last Admin: 01/22/21 13:46 Dose: 20 mg Documented by: Furosemide (Furosemide 20 Mg/2 Ml Vial) 20 mg IVPUSH ONETIME ONE Stop: 01/22/21 17:40 Last Admin: 01/22/21 18:20 Dose: 20 mg Documented by: Heparin Sodium (Porcine) (Heparin Sodium 5,000 Units/Ml Vial) 5,000 units SUBCUT Q8H [facility] Diltiazem HCl 100 mg/ Sodium (Chloride) 100 mls @ 10 mls/hr IV ASDIRECTED [facility] Last Infusion: 01/22/21 13:41 Dose: 15 mg/hr, 15 mls/hr Documented by: Sodium Chloride (Normal Saline) 1,000 mls @ 999 mls/hr IV ASDIRECTED [facility] Last Admin: 01/22/21 12:49 Dose: 999 mls/hr Documented by: Ceftriaxone Sodium 2 gm/ (Sodium Chloride) 100 mls @ 200 mls/hr IV ONETIME ONE Stop: 01/22/21 13:14 Last Admin: 01/22/21 13:05 Dose: 200 mls/hr Documented by: Amiodarone HCl/Dextrose (Nexterone In Dextrose 150 Mg/100 Ml) 100 mls @ 600 mls/hr IV .BOLUS ONE; Protocol Stop: 01/22/21 14:28 Last Admin: 01/22/21 14:29 Dose: 600 mls/hr Documented by: Amiodarone HCl/Dextrose (Nexterone In Dextrose 150 Mg/100 Ml) 100 mls @ 600 mls/hr IV .BOLUS ONE; Protocol Stop: 01/22/21 15:23 Last Admin: 01/22/21 15:26 Dose: 600 mls/hr Documented by: Promethazine HCl 12.5 mg/ (Sodium Chloride) 50.5 mls @ 100 mls/hr IV Q6H PRN PRN Reason: Nausea/Vomiting Lorazepam (Lorazepam 2 Mg/Ml Sdv) 1 mg IVPUSH Q4H PRN PRN Reason: Agitation Last Admin: 01/26/21 15:54 Dose: 1 mg Documented by: Mometasone Furoate/Formoterol Fumar (Formoterol/Mometasone 200-5 Mcg 8.8 Gm Inhaler) 0 puff IH BID [facility] Morphine Sulfate (Morphine 2 Mg/Ml Syringe) 2 mg IVPUSH Q4H PRN PRN Reason: Pain (moderate 4-6) Stop: 01/23/21 17:41 Morphine Sulfate (Morphine 2 Mg/Ml Syringe) 2 mg IVPUSH Q2H PRN PRN Reason: Pain Stop: 01/23/21 23:27 Non-Formulary Medication (Melatonin [Melatonin]) 5 mg PO BEDTIME [facility] Non-Formulary Medication (Rosuvastatin Calcium [Rosuvastatin Calcium]) 20 mg PO DAILY [facility] Last Admin: 01/22/21 22:00 Dose: Not Given Documented by: Non-Formulary Medication (Ubidecarenone) 100 mg PO DAILY [facility] Last Admin: 01/22/21 22:00 Dose: Not Given Documented by: Ondansetron HCl (Ondansetron 4 Mg/2 Ml Sdv) 4 mg IVPUSH Q4H PRN PRN Reason: Nausea/Vomiting Sertraline HCl (Sertraline 50 Mg Tab) 75 mg PO DAILY [facility] Last Admin: 01/22/21 18:20 Dose: 75 mg Documented by: Sodium Polystyrene Sulfonate (Sodium Polystyrene Sulfonate 15 Gm/60 Ml Susp 60 Ml Bot) 30 gm PO ONETIME ONE Stop: 01/22/21 17:41 Last Admin: 01/22/21 18:20 Dose: 30 gm Documented by: Tamsulosin HCl (Tamsulosin 0.4 Mg Cap.Er) 0.8 mg PO Q24H [facility] Last Admin: 06/16/21 18:19 Dose: 0.8 mg Documented by: Tiotropium [place] (Tiotropium [place] 4 Gm Inhalation [place] (2.5mcg/1 Dose; 10 Doses)) 0 gm INH Q24H [facility] Last Admin: 01/22/21 21:41 Dose: Not Given Documented by: - Patient Data Result Diagrams: 01/22/21 11:58 01/22/21 11:58 Sepsis Event Note - Evaluation Sepsis Screening Result: No Definite Risk - Focused Exam Vital Signs: Vital Signs Temp Pulse Resp BP Pulse Ox 01/27/21 08:19 97.7 F 85 18 116/65 95 01/26/21 20:51 98.2 F 75 14 103/50 L 95 - Problem List & Annotations (1) AMS (altered mental status) SNOMED Code(s): 797175059 Code(s): R41.82 - ALTERED MENTAL STATUS, UNSPECIFIED Status: Acute Priority: High Current Visit: Yes Qualifiers: Altered mental status type: unspecified Qualified Code(s): R41.82 - Altered mental status, unspecified (2) Non-ST elevation [place] (NSTEMI) SNOMED Code(s): 97060010 Code(s): I21.4 - NON-ST ELEVATION (NSTEMI) MYOCARDIAL INFARCTION Status: Suspected Priority: High Current Visit: Yes (3) CHF exacerbation SNOMED Code(s): 256099749, 84330645978720 Code(s): I50.9 - HEART FAILURE, UNSPECIFIED Status: Acute Priority: High Current Visit: Yes Qualifiers: Heart failure type: unspecified Qualified Code(s): I50.9 - Heart failure, unspecified (4) Atrial fibrillation with rapid ventricular response SNOMED Code(s): 786585497843940 Code(s): I48.91 - UNSPECIFIED ATRIAL FIBRILLATION Status: Acute Priority: High Current Visit: Yes (5) COPD (chronic obstructive pulmonary disease) with emphysema SNOMED Code(s): 27091750 Code(s): J43.9 - EMPHYSEMA, UNSPECIFIED Status: Acute Priority: High Current Visit: Yes Qualifiers: Emphysema type: panlobular Qualified Code(s): J43.1 - Panlobular emphysema (6) NIKOLAY (acute kidney injury) SNOMED Code(s): 94794438, 99336604 Code(s): N17.9 - ACUTE KIDNEY FAILURE, UNSPECIFIED Status: Acute Priority: High Current Visit: Yes (7) Anemia SNOMED Code(s): 059354936 Code(s): D64.9 - ANEMIA, UNSPECIFIED Status: Acute Priority: High Current Visit: Yes Qualifiers: Anemia type: due to chronic kidney disease Chronic kidney disease stage: stage 4 (severe) Qualified Code(s): N18.4 - Chronic kidney disease, stage 4 (severe); D63.1 - Anemia in chronic kidney disease (8) Transaminitis SNOMED Code(s): 188488751, 097623709 Code(s): R74.01 - ELEVATION OF LEVELS OF LIVER TRANSAMINASE LEVELS Status: Acute Priority: High Current Visit: Yes (9) Need for comfort care SNOMED Code(s): 560683107, 830827925 Code(s): MEV7503 - Status: Acute Priority: High Current Visit: Yes (10) Acute on chronic respiratory failure with hypoxemia SNOMED Code(s): 19537302681517888 Code(s): J96.21 - ACUTE AND CHRONIC RESPIRATORY FAILURE WITH HYPOXIA Status: Acute Priority: High Current Visit: Yes - Problem List Review Problem List Initiated/Reviewed/Updated: Yes - Assessment Assessment:: 01/23/2021 Patient is a 75-year-old male with a history of CHF, COPD, atrial fibrillation, and anemia who was brought to the ER due to AMS. Patient is lying in bed comfortably. No complaints He is now on comfort care only 01/24/2021 Patient is a 75-year-old male with a history of CHF, COPD, atrial fibrillation, and anemia who was brought to the ER due to AMS. Patient is lying in bed comfortably. No complaints He is now on comfort care only director summer sessions Jaycee spoke to who agreed to put pt on oxygen for comfort 01/25/2021 Patient is a 75-year-old male with a history of CHF, COPD, atrial fibrillation, and anemia who was brought to the ER due to AMS. Patient is lying in bed comfortably. No complaints He is now on comfort care only He is now on oxygen for comfort 01/26/2021 Patient is a 75-year-old male with a history of CHF, COPD, atrial fibrillation, and anemia who was brought to the ER due to AMS. When I saw him this morning, he was sitting on a chair comfortably. No complai nts He is now on comfort care only He is now on oxygen for comfort 01/27/2021 - Plan Plan:: Comfort care only: -Morphine 10mg PO every 6 hours as needed -Ativan 1 mg PO every 4 hours as needed -Zofran 4 mg PO every 4 hours as needed -Scopolamine patch -2L Oxygen for comfort -SW/CM consultation for placement -Bedrest/up to chair as patient desires -Vital signs Qshift Inactive: AMS Acute on chronic hypoxic respiratory failure congestive heart failure exacerbation NSTEMI? COPD Paroxysmal atrial fibrillation with RVR Anemia NIKOLAY or NIKOLAY on CKD Elevation of liver enzymes PCP: Dr. Bennett Code status: DNR/DNI/Comfort Measures Disposition: Pending placement Hospice care Length of stay greater than 96 hours due to placement <Carmine Johnston - Last Filed: 01/28/21 06:53> - Patient Data Vitals - Most Recent: Last Vital Signs Temp 36.5 C 01/27/21 08:19 Pulse 74 01/27/21 20:29 Resp 20 01/27/21 20:29 BP 109/66 01/27/21 20:29 Pulse Ox 99 01/27/21 20:29 I&O - Last 24 Hours: Intake & Output 01/27/21 01/27/21 01/28/21 14:59 22:59 06:59 Intake Total 120 200 Balance 120 200 Med Orders - Current: Current Medications Lorazepam (Lorazepam 1 Mg Tab) 1 mg PO Q4H PRN PRN Reason: Anxiety Last Admin: 01/26/21 23:17 Dose: 1 mg Documented by: Miscellaneous Information (Remove Scopalamine Patch) 1 ea TRDERM Q72H [facility] Last Admin: 01/26/21 01:02 Dose: Not Given Documented by: Morphine Sulfate (Morphine 10 Mg/0.5 Ml Oral Syringe) 10 mg PO Q6H PRN PRN Reason: Pain Ondansetron HCl (Ondansetron 4 Mg Tab.Dis) 4 mg PO Q4H PRN PRN Reason: Nausea/Vomiting Scopolamine (Scopolamine 1.5 Mg Transdermal Patch) 1.5 mg TRDERM Q72H [facility] Last Admin: 01/26/21 01:04 Dose: Not Given Documented by: Discontinued Medications Acetaminophen (Acetaminophen 325 Mg Tab) 650 mg PO Q4H PRN PRN Reason: Pain Last Admin: 01/22/21 12:49 Dose: 650 mg Documented by: Alprazolam (Alprazolam 0.5 Mg Tab) 0.5 mg PO BID [facility] Aspirin (Aspirin 81 Mg Tab.Ec) 81 mg PO Q24H [facility] Last Admin: 01/22/21 18:19 Dose: 81 mg Documented by: Bisacodyl (Bisacodyl 5 Mg Tab) 10 mg PO DAILY PRN PRN Reason: Constipation Bupropion HCl (Bupropion 150 Mg Tab.Er) 150 mg PO QAM [facility] Cholecalciferol (Cholecalciferol (Vitamin D3) 25 Mcg Tab) 25 mcg PO DAILY [facility] Cyanocobalamin (Cyanocobalamin (Vitamin B12) 1,000 Mcg Tab) 1,000 mcg PO WEEKLY [facility] Diltiazem HCl (Diltiazem 50 Mg/10 Ml Sdv) 10 mg IVPUSH ONETIME ONE Stop: 01/22/21 12:24 Last Admin: 01/22/21 12:36 Dose: 10 mg Documented by: Diltiazem HCl (Diltiazem 50 Mg/10 Ml Sdv) 10 mg IVPUSH ONETIME ONE Stop: 01/22/21 13:01 Last Admin: 01/22/21 13:05 Dose: 10 mg Documented by: Diltiazem HCl (Diltiazem 50 Mg/10 Ml Sdv) 20 mg IVPUSH ONETIME ONE Stop: 01/22/21 13:43 Last Admin: 01/22/21 13:46 Dose: 20 mg Documented by: Furosemide (Furosemide 20 Mg/2 Ml Vial) 20 mg IVPUSH ONETIME ONE Stop: 01/22/21 17:40 Last Admin: 01/22/21 18:20 Dose: 20 mg Documented by: Heparin Sodium (Porcine) (Heparin Sodium 5,000 Units/Ml Vial) 5,000 units SUBCUT Q8H [facility] Diltiazem HCl 100 mg/ Sodium (Chloride) 100 mls @ 10 mls/hr IV ASDIRECTED [facility] Last Infusion: 01/22/21 13:41 Dose: 15 mg/hr, 15 mls/hr Documented by: Sodium Chloride (Normal Saline) 1,000 mls @ 999 mls/hr IV ASDIRECTED [facility] Last Admin: 01/22/21 12:49 Dose: 999 mls/hr Documented by: Ceftriaxone Sodium 2 gm/ (Sodium Chloride) 100 mls @ 200 mls/hr IV ONETIME ONE Stop: 01/22/21 13:14 Last Admin: 01/22/21 13:05 Dose: 200 mls/hr Documented by: Amiodarone HCl/Dextrose (Nexterone In Dextrose 150 Mg/100 Ml) 100 mls @ 600 mls/hr IV .BOLUS ONE; Protocol Stop: 01/22/21 14:28 Last Admin: 01/22/21 14:29 Dose: 600 mls/hr Documented by: Amiodarone HCl/Dextrose (Nexterone In Dextrose 150 Mg/100 Ml) 100 mls @ 600 mls/hr IV .BOLUS ONE; Protocol Stop: 01/22/21 15:23 Last Admin: 01/22/21 15:26 Dose: 600 mls/hr Documented by: Promethazine HCl 12.5 mg/ (Sodium Chloride) 50.5 mls @ 100 mls/hr IV Q6H PRN PRN Reason: Nausea/Vomiting Lorazepam (Lorazepam 2 Mg/Ml Sdv) 1 mg IVPUSH Q4H PRN PRN Reason: Agitation Last Admin: 01/26/21 15:54 Dose: 1 mg Documented by: Mometasone Furoate/Formoterol Fumar (Formoterol/Mometasone 200-5 Mcg 8.8 Gm Inhaler) 0 puff IH BID [facility] Morphine Sulfate (Morphine 2 Mg/Ml Syringe) 2 mg IVPUSH Q4H PRN PRN Reason: Pain (moderate 4-6) Stop: 01/23/21 17:41 Morphine Sulfate (Morphine 2 Mg/Ml Syringe) 2 mg IVPUSH Q2H PRN PRN Reason: Pain Stop: 01/23/21 23:27 Non-Formulary Medication (Melatonin [Melatonin]) 5 mg PO BEDTIME [facility] Non-Formulary Medication (Rosuvastatin Calcium [Rosuvastatin Calcium]) 20 mg PO DAILY [facility] Last Admin: 01/22/21 22:00 Dose: Not Given Documented by: Non-Formulary Medication (Ubidecarenone) 100 mg PO DAILY [facility] Last Admin: 01/22/21 22:00 Dose: Not Given Documented by: Ondansetron HCl (Ondansetron 4 Mg/2 Ml Sdv) 4 mg IVPUSH Q4H PRN PRN Reason: Nausea/Vomiting Sertraline HCl (Sertraline 50 Mg Tab) 75 mg PO DAILY [facility] Last Admin: 01/22/21 18:20 Dose: 75 mg Documented by: Sodium Polystyrene Sulfonate (Sodium Polystyrene Sulfonate 15 Gm/60 Ml Susp 60 Ml Bot) 30 gm PO ONETIME ONE Stop: 01/22/21 17:41 Last Admin: 01/22/21 18:20 Dose: 30 gm Documented by: Tamsulosin HCl (Tamsulosin 0.4 Mg Cap.Er) 0.8 mg PO Q24H [facility] Last Admin: 01/22/21 18:19 Dose: 0.8 mg Documented by: Tiotropium [place] (Tiotropium [place] 4 Gm Inhalation [place] (2.5mcg/1 Dose; 10 Doses)) 0 gm INH Q24H [facility] Last Admin: 01/22/21 21:41 Dose: Not Given Documented by: - Patient Data Result Diagrams: 01/22/21 11:58 01/22/21 11:58 Sepsis Event Note - Focused Exam Vital Signs: Vital Signs Pulse Resp BP Pulse Ox 01/27/21 20:29 74 20 109/66 99 - Plan Plan:: I have seen and examined the patient independently of Emanuel Xie PA-C, and have reviewed the case with him. I have reviewed and agree with the plan and care as outlined by him. Please see orders.
[2021-01-27 22:35] VITALS: PULSE 74
--- NOTE | 2021-01-28 09:35 | PCM.DCSUM1 ---
<Emanuel Xie - Last Filed: 01/28/21 12:10> Discharge Summary - Hospital Course HPI Initial Comments: Patient is a 75-year-old male with a history of CHF, COPD, atrial fibrillation, and anemia who was brought to the ER due to AMS. His daughter had not heard from him for a few days and went to check on him this morning. The daughter found him to sit on floor beside the kitchen table and did not respond. He is normally on 6 L oxygen per nasal cannula but his oxygen was off. In the ER, his heart rate was found to be around 150 which was controlled after amiodarone and diltiazem drip were given. Hemoglobin 9.1, INR 1.86, sodium 146, potassium 5.1, creatinine 2.9, lactic acid 3.7, magnesium 2.8, AST 1519, ALT 2761, troponin 0.1 985, BNP 45580 and CRP 3.9. ER physician Dr. Havrey discussed with and step daughter who would like to pursue comfort care only. NATASHA Ramirez and I met and the daughter who confirmed that they would like to pursue comfort care only. Specifically, no oxygen, no IV fluid, no antibiotics, no blood tests, no imaging tests, and no procedures. Offer the patient pain medications and medications for nausea, vomiting, anxiety and secretion. Stop all other medications which are not related to comfort care. They would like to start comfort care only now. As per and daughter, pt can eat if he wants to eat regardless of the risk for aspiration pneumonia. Diagnosis: Stroke: No - Discharge Data Discharge Date: 01/28/21 (Admit date: 01/22/2021) Discharge Disposition: DC/Tfer to SNF 03 Condition: Stable - Referral to Home Health Primary Care Physician: Zach Snowden MD - Discharge Diagnosis/Problem(s) (1) AMS (altered mental status) SNOMED Code(s): 119106896 ICD Code: R41.82 - ALTERED MENTAL STATUS, UNSPECIFIED Status: Acute Priority: High Qualifiers: Altered mental status type: unspecified Qualified Code(s): R41.82 - Altered mental status, unspecified (2) Non-ST elevation CA (NSTEMI) SNOMED Code(s): 35975844 ICD Code: I21.4 - NON-ST ELEVATION (NSTEMI) MYOCARDIAL INFARCTION Status: Suspected Priority: High (3) CHF exacerbation SNOMED Code(s): 153797292, 44388086315512 ICD Code: I50.9 - HEART FAILURE, UNSPECIFIED Status: Acute Priority: High Qualifiers: Heart failure type: unspecified Qualified Code(s): I50.9 - Heart failure, unspecified (4) Atrial fibrillation with rapid ventricular response SNOMED Code(s): 335198749790031 ICD Code: I48.91 - UNSPECIFIED ATRIAL FIBRILLATION Status: Acute Priority: High (5) COPD (chronic obstructive pulmonary disease) with emphysema SNOMED Code(s): 69395474 ICD Code: J43.9 - EMPHYSEMA, UNSPECIFIED Status: Acute Priority: High Qualifiers: Emphysema type: panlobular Qualified Code(s): J43.1 - Panlobular emphysema (6) NIKOLAY (acute kidney injury) SNOMED Code(s): 92718966, 64831176 ICD Code: N17.9 - ACUTE KIDNEY FAILURE, UNSPECIFIED Status: Acute Priority: High (7) Anemia SNOMED Code(s): 761794626 ICD Code: D64.9 - ANEMIA, UNSPECIFIED Status: Acute Priority: High Qualifiers: Anemia type: due to chronic kidney disease Chronic kidney disease stage: stage 4 (severe) Qualified Code(s): N18.4 - Chronic kidney disease, stage 4 (severe); D63.1 - Anemia in chronic kidney disease (8) Transaminitis SNOMED Code(s): 853864432, 665525847 ICD Code: R74.01 - ELEVATION OF LEVELS OF LIVER TRANSAMINASE LEVELS Status: Acute Priority: High (9) Need for comfort care SNOMED Code(s): 629659583, 089887981 ICD Code: CLN6809 - Status: Acute Priority: High (10) Acute on chronic respiratory failure with hypoxemia SNOMED Code(s): 05410656764983978 ICD Code: J96.21 - ACUTE AND CHRONIC RESPIRATORY FAILURE WITH HYPOXIA Status: Acute Priority: High - Patient Summary/Data Consults: Consultations 01/22/21 17:20 Consult to Case Management/Emergency Dispatcher [CONS] Routine Labs Pending at D/C: None Recommended Follow-up Testing/Procedures: Follow-up as needed with PCP for comfort care. Follow-up with hospice as scheduled. Hospital Course: This is a 75-year-old male who presents to our ED on 01/22/2021 with a fever and altered mental status. He carries a history of A. fib, CHF, COPD, sleep apnea, oxygen dependence, dementia, and anxiety. He was reportedly found on the floor by his daughter and [place] ambulance was contacted. Is reportedly oxygen dependent and wears anywhere from 3 to 12 L/min. He was noted to have a fever of 101 and was in A. fib with RVR with a rate of 150/min. In the ED white count was 10.80 and he was noted to be anemic with a hemoglobin 9.1. INR was 1.86. He was hyponatremic with a sodium of 146. Potassium was 5.1. He was noted to have a creatinine of 2.9 with a GFR of 21 and lactic acid was 3.7. Bilirubin was elevated at 2.8. AST was very high at 1519 and ALT 2761. Alkaline phosphatase was 70. CK-MB was 6.30 and his troponin was elevated 0.985. proBNP was very high at 30,453. Abdomen and pelvis CT was obtained showing numerous chronic findings but nothing acute. Chest x-ray is obtained showing blunting of the left costophrenic angle which was stable and nothing acute. Discussion ensued between the ED provider and the patient's family including and daughter. They reported the patient would want to be comfort cares and that they wanted to honor his wishes. Patient had indicated that he wanted his Milady and daughter Shira to make his decisions for him and therefore the healthcare consent laws utilized. There was some discussion as to whether or not to keep the patient on oxygen and ultimately was decided that he would tra nue oxygen as needed, although this was decided later on in the patients stay. All other home medications were stopped and patient was placed on morphine for pain as needed and Ativan for anxiety as needed. Scopolamine patch was also ordered as needed for nausea. Attending hospitalist did meet with the family and confirmed comfort care. Again family indicated they did not want any IV fluids, antibiotics, blood tests, imaging tests, or other procedures. They only wish to treat nausea, vomiting, anxiety, and pain. Case management and social work were consulted and patient was ultimately accepted at [facility]. [facility]. Plan will be for hospice consult after discharge. Patient discharged today to [facility]. Prescription sent for p.o. morphine and Ativan as needed as noted. Prescription for as needed scopolamine patch for secretions and nausea sent as well. Patient should follow-up with hospice as planned. May follow-up with primary care provider as needed for comfort care. - Patient Instructions Diet: Usual Diet as Tolerated Activity: As Tolerated Driving: Do Not Drive Showering/Bathing: May Shower Other/Special Instructions: Follow-up with primary care provider as needed for comfort care. Follow-up with hospice as scheduled after discharge. Home medications were discontinued per comfort care. - Discharge Plan *PRESCRIPTION DRUG MONITORING PROGRAM REVIEWED*: No *COPY OF PRESCRIPTION DRUG MONITORING REPORT IN PATIENT NICOLE: No Prescriptions/Med Rec: LORazepam [Ativan] 1 mg PO Q6H PRN #20 ml PRN Reason: Anxiety/restlessness Morphine [Morphine 20 MG/ML Soln] 5 mg PO Q1H PRN #30 ml PRN Reason: Pain Scopolamine [Transderm-Scop] 1.5 mg TRDERM Q72H PRN #3 patch PRN Reason: Nausea/excessive secretions Home Medications: Home Meds LORazepam [Ativan] 1 mg PO Q6H PRN #20 ml 01/28/21 [Rx] Morphine [Morphine 20 MG/ML Soln] 5 mg PO Q1H PRN #30 ml 01/28/21 [Rx] Scopolamine [Transderm-Scop] 1.5 mg TRDERM Q72H PRN #3 patch 01/28/21 [Rx] Oxygen Therapy Mode: Nasal Cannula Oxygen Flow Rate (L/min): 2 Maintain SpO2% greater than: 90 Forms: ED Department Discharge Referrals: Adonis Barron MD [Physician] - 02/06/21 1:00 pm - Discharge Summary/Plan Comment DC Time >30 min.: No - General Info Date of Service: 01/28/21 Admission Dx/Problem (Free Text: Admission Diagnosis/Problem Admission Diagnosis/Problem Fever, unspecified Functional Status: Reports: Pain Controlled, Tolerating Diet, Ambulating, Urinating. Denies: New Symptoms - Review of Systems General: Reports: No Symptoms. Denies: Fever HEENT: Reports: No Symptoms Pulmonary: Reports: No Symptoms. Denies: Cough Cardiovascular: Reports: No Symptoms Gastrointestinal: Reports: No Symptoms. Denies: Diarrhea, Vomiting Genitourinary: Reports: No Symptoms Musculoskeletal: Reports: No Symptoms Skin: Reports: No Symptoms Neurological: Reports: Confusion, Difficulty Walking, Gait Disturbance Psychiatric: Reports: No Symptoms Systems Review Comment: ROS unable to be reliably obtained as patient is quite confused. - Patient Data Vitals - Most Recent: Last Vital Signs Temp 97.7 F 01/27/21 08:19 Pulse 74 01/27/21 20:29 Resp 20 01/27/21 20:29 BP 109/66 01/27/21 20:29 Pulse Ox 99 01/28/21 08:50 Weight - Most Recent: 84.822 kg I&O - Last 24 hours: Intake & Output 01/27/21 01/28/21 01/28/21 22:59 06:59 14:59 Intake Total 120 200 Balance 120 200 Med Orders - Current: Current Medications Lorazepam (Lorazepam 1 Mg Tab) 1 mg PO Q4H PRN PRN Reason: Anxiety Last Admin: 01/26/21 23:17 Dose: 1 mg Documented by: Miscellaneous Information (Remove Scopalamine Patch) 1 ea TRDERM Q72H [facility] Last Admin: 01/26/21 01:02 Dose: Not Given Documented by: Morphine Sulfate (Morphine 10 Mg/0.5 Ml Oral Syringe) 10 mg PO Q6H PRN PRN Reason: Pain Ondansetron HCl (Ondansetron 4 Mg Tab.Dis) 4 mg PO Q4H PRN PRN Reason: Nausea/Vomiting Scopolamine (Scopolamine 1.5 Mg Transdermal Patch) 1.5 mg TRDERM Q72H [facility] Last Admin: 01/26/21 01:04 Dose: Not Given Documented by: Discontinued Medications Acetaminophen (Acetaminophen 325 Mg Tab) 650 mg PO Q4H PRN PRN Reason: Pain Last Admin: 01/22/21 12:49 Dose: 650 mg Documented by: Alprazolam (Alprazolam 0.5 Mg Tab) 0.5 mg PO BID [facility] Aspirin (Aspirin 81 Mg Tab.Ec) 81 mg PO Q24H [facility] Last Admin: 01/22/21 18:19 Dose: 81 mg Documented by: Bisacodyl (Bisacodyl 5 Mg Tab) 10 mg PO DAILY PRN PRN Reason: Constipation Bupropion HCl (Bupropion 150 Mg Tab.Er) 150 mg PO QAM [facility] Cholecalciferol (Cholecalciferol (Vitamin D3) 25 Mcg Tab) 25 mcg PO DAILY [facility] Cyanocobalamin (Cyanocobalamin (Vitamin B12) 1,000 Mcg Tab) 1,000 mcg PO WEEKLY [facility] Diltiazem HCl (Diltiazem 50 Mg/10 Ml Sdv) 10 mg IVPUSH ONETIME ONE Stop: 01/22/21 12:24 Last Admin: 01/22/21 12:36 Dose: 10 mg Documented by: Diltiazem HCl (Diltiazem 50 Mg/10 Ml Sdv) 10 mg IVPUSH ONETIME ONE Stop: 01/22/21 13:01 Last Admin: 01/22/21 13:05 Dose: 10 mg Documented by: Diltiazem HCl (Diltiazem 50 Mg/10 Ml Sdv) 20 mg IVPUSH ONETIME ONE Stop: 01/22/21 13:43 Last Admin: 01/22/21 13:46 Dose: 20 mg Documented by: Furosemide (Furosemide 20 Mg/2 Ml Vial) 20 mg IVPUSH ONETIME ONE Stop: 01/22/21 17:40 Last Admin: 01/22/21 18:20 Dose: 20 mg Documented by: Heparin Sodium (Porcine) (Heparin Sodium 5,000 Units/Ml Vial) 5,000 units SUBCUT Q8H [facility] Diltiazem HCl 100 mg/ Sodium (Chloride) 100 mls @ 10 mls/hr IV ASDIRECTED [facility] Last Infusion: 01/22/21 13:41 Dose: 15 mg/hr, 15 mls/hr Documented by: Sodium Chloride (Normal Saline) 1,000 mls @ 999 mls/hr IV ASDIRECTED [facility] Last Admin: 01/22/21 12:49 Dose: 999 mls/hr Documented by: Ceftriaxone Sodium 2 gm/ (Sodium Chloride) 100 mls @ 200 mls/hr IV ONETIME ONE Stop: 01/22/21 13:14 Last Admin: 01/22/21 13:05 Dose: 200 mls/hr Documented by: Amiodarone HCl/Dextrose (Nexterone In Dextrose 150 Mg/100 Ml) 100 mls @ 600 mls/hr IV .BOLUS ONE; Protocol Stop: 01/22/21 14:28 Last Admin: 01/22/21 14:29 Dose: 600 mls/hr Documented by: Amiodarone HCl/Dextrose (Nexterone In Dextrose 150 Mg/100 Ml) 100 mls @ 600 mls/hr IV .BOLUS ONE; Protocol Stop: 01/22/21 15:23 Last Admin: 01/22/21 15:26 Dose: 600 mls/hr Documented by: Promethazine HCl 12.5 mg/ (Sodium Chloride) 50.5 mls @ 100 mls/hr IV Q6H PRN PRN Reason: Nausea/Vomiting Lorazepam (Lorazepam 2 Mg/Ml Sdv) 1 mg IVPUSH Q4H PRN PRN Reason: Agitation Last Admin: 01/26/21 15:54 Dose: 1 mg Documented by: Mometasone Furoate/Formoterol Fumar (Formoterol/Mometasone 200-5 Mcg 8.8 Gm Inhaler) 0 puff IH BID [facility] Morphine Sulfate (Morphine 2 Mg/Ml Syringe) 2 mg IVPUSH Q4H PRN PRN Reason: Pain (moderate 4-6) Stop: 01/23/21 17:41 Morphine Sulfate (Morphine 2 Mg/Ml Syringe) 2 mg IVPUSH Q2H PRN PRN Reason: Pain Stop: 01/23/21 23:27 Non-Formulary Medication (Melatonin [Melatonin]) 5 mg PO BEDTIME [facility] Non-Formulary Medication (Rosuvastatin Calcium [Rosuvastatin Calcium]) 20 mg PO DAILY [facility] Last Admin: 01/22/21 22:00 Dose: Not Given Documented by: Non-Formulary Medication (Ubidecarenone) 100 mg PO DAILY [facility] Last Admin: 01/22/21 22:00 Dose: Not Given Documented by: Ondansetron HCl (Ondansetron 4 Mg/2 Ml Sdv) 4 mg IVPUSH Q4H PRN PRN Reason: Nausea/Vomiting Sertraline HCl (Sertraline 50 Mg Tab) 75 mg PO DAILY [facility] Last Admin: 01/22/21 18:20 Dose: 75 mg Documented by: Sodium Polystyrene Sulfonate (Sodium Polystyrene Sulfonate 15 Gm/60 Ml Susp 60 Ml Bot) 30 gm PO ONETIME ONE Stop: 01/22/21 17:41 Last Admin: 01/22/21 18:20 Dose: 30 gm Documented by: Tamsulosin HCl (Tamsulosin 0.4 Mg Cap.Er) 0.8 mg PO Q24H [facility] Last Admin: 01/22/21 18:19 Dose: 0.8 mg Documented by: Tiotropium [place] (Tiotropium [place] 4 Gm Inhalation [place] (2.5mcg/1 Dose; 10 Doses)) 0 gm INH Q24H [facility] Last Admin: 01/22/21 21:41 Dose: Not Given Documented by: - Exam Quality Assessment: Reports: Supplemental Oxygen (2L), DVT Prophylaxis. Denies: Urine Catheter General: Reports: Alert, Cooperative, No Acute Distress. Denies: Oriented HEENT: Reports: Pupils Equal, Pupils Reactive Neck: Reports: Supple, Trachea Midline Lungs: Reports: Normal Respiratory Effort, Decreased Breath Sounds, Rhonchi Cardiovascular: Reports: Irregular Rhythm GI/Abdominal Exam: Normal Bowel Sounds, Soft, Non-Tender, No Distention (Male) Exam: Deferred Rectal (Males) Exam: Deferred Back Exam: Reports: Normal Inspection, Decreased Range of Motion Extremities: Normal Inspection, Normal Range of Motion, Non-Tender Skin: Reports: Warm, Dry, Intact, Ecchymosis (Scattered - especially on extremities ) Neurological: Reports: No New Focal Deficit Psy/Mental Status: Reports: Alert <Carmine Johnston - Last Filed: 01/28/21 15:44> Discharge Summary - Referral to Home Health Primary Care Physician: Zach Snowden MD - Patient Summary/Data Consults: Consultations 01/22/21 17:20 Consult to Case Management/Emergency Dispatcher [CONS] Routine Hospital Course: I have seen and examined the patient independently of Emanuel Xie PA-C, and have reviewed the case with him. I have reviewed and agree with the plan and care as outlined by him. Please see orders. - Patient Data Vitals - Most Recent: Last Vital Signs Temp 36.4 C 01/28/21 09:05 Pulse 74 01/27/21 20:29 Resp 16 01/28/21 09:05 BP 107/68 01/28/21 09:05 Pulse Ox 99 01/28/21 08:50 I&O - Last 24 hours: Intake & Output 01/28/21 01/28/21 01/28/21 06:59 14:59 22:59 Intake Total 200 300 Balance 200 300 Med Orders - Current: Current Medications Discontinued Medications Acetaminophen (Acetaminophen 325 Mg Tab) 650 mg PO Q4H PRN PRN Reason: Pain Last Admin: 01/22/21 12:49 Dose: 650 mg Documented by: Alprazolam (Alprazolam 0.5 Mg Tab) 0.5 mg PO BID [facility] Aspirin (Aspirin 81 Mg Tab.Ec) 81 mg PO Q24H [facility] Last Admin: 01/22/21 18:19 Dose: 81 mg Documented by: Bisacodyl (Bisacodyl 5 Mg Tab) 10 mg PO DAILY PRN PRN Reason: Constipation Bupropion HCl (Bupropion 150 Mg Tab.Er) 150 mg PO QAM [facility] Cholecalciferol (Cholecalciferol (Vitamin D3) 25 Mcg Tab) 25 mcg PO DAILY [facility] Cyanocobalamin (Cyanocobalamin (Vitamin B12) 1,000 Mcg Tab) 1,000 mcg PO WEEKLY [facility] Diltiazem HCl (Diltiazem 50 Mg/10 Ml Sdv) 10 mg IVPUSH ONETIME ONE Stop: 01/22/21 12:24 Last Admin: 01/22/21 12:36 Dose: 10 mg Documented by: Diltiazem HCl (Diltiazem 50 Mg/10 Ml Sdv) 10 mg IVPUSH ONETIME ONE Stop: 01/22/21 13:01 Last Admin: 01/22/21 13:05 Dose: 10 mg Documented by: Diltiazem HCl (Diltiazem 50 Mg/10 Ml Sdv) 20 mg IVPUSH ONETIME ONE Stop: 01/22/21 13:43 Last Admin: 01/22/21 13:46 Dose: 20 mg Documented by: Furosemide (Furosemide 20 Mg/2 Ml Vial) 20 mg IVPUSH ONETIME ONE Stop: 01/22/21 17:40 Last Admin: 01/22/21 18:20 Dose: 20 mg Documented by: Heparin Sodium (Porcine) (Heparin Sodium 5,000 Units/Ml Vial) 5,000 units SUBCUT Q8H [facility] Diltiazem HCl 100 mg/ Sodium (Chloride) 100 mls @ 10 mls/hr IV ASDIRECTED [facility] Last Infusion: 01/22/21 13:41 Dose: 15 mg/hr, 15 mls/hr Documented by: Sodium Chloride (Normal Saline) 1,000 mls @ 999 mls/hr IV ASDIRECTED [facility] Last Admin: 01/22/21 12:49 Dose: 999 mls/hr Documented by: Ceftriaxone Sodium 2 gm/ (Sodium Chloride) 100 mls @ 200 mls/hr IV ONETIME ONE Stop: 01/22/21 13:14 Last Admin: 01/22/21 13:05 Dose: 200 mls/hr Documented by: Amiodarone HCl/Dextrose (Nexterone In Dextrose 150 Mg/100 Ml) 100 mls @ 600 mls/hr IV .BOLUS ONE; Protocol Stop: 01/22/21 14:28 Last Admin: 01/22/21 14:29 Dose: 600 mls/hr Documented by: Amiodarone HCl/Dextrose (Nexterone In Dextrose 150 Mg/100 Ml) 100 mls @ 600 mls/hr IV .BOLUS ONE; Protocol Stop: 01/22/21 15:23 Last Admin: 01/22/21 15:26 Dose: 600 mls/hr Documented by: Promethazine HCl 12.5 mg/ (Sodium Chloride) 50.5 mls @ 100 mls/hr IV Q6H PRN PRN Reason: Nausea/Vomiting Lorazepam (Lorazepam 2 Mg/Ml Sdv) 1 mg IVPUSH Q4H PRN PRN Reason: Agitation Last Admin: 01/26/21 15:54 Dose: 1 mg Documented by: Lorazepam (Lorazepam 1 Mg Tab) 1 mg PO Q4H PRN PRN Reason: Anxiety Last Admin: 01/26/21 23:17 Dose: 1 mg Documented by: Miscellaneous Information (Remove Scopalamine Patch) 1 ea TRDERM Q72H [facility] Last Admin: 01/26/21 01:02 Dose: Not Given Documented by: Mometasone Furoate/Formoterol Fumar (Formoterol/Mometasone 200-5 Mcg 8.8 Gm Inhaler) 0 puff IH BID [facility] Morphine Sulfate (Morphine 2 Mg/Ml Syringe) 2 mg IVPUSH Q4H PRN PRN Reason: Pain (moderate 4-6) Stop: 01/23/21 17:41 Morphine Sulfate (Morphine 2 Mg/Ml Syringe) 2 mg IVPUSH Q2H PRN PRN Reason: Pain Stop: 01/23/21 23:27 Morphine Sulfate (Morphine 10 Mg/0.5 Ml Oral Syringe) 10 mg PO Q6H PRN PRN Reason: Pain Non-Formulary Medication (Melatonin [Melatonin]) 5 mg PO BEDTIME [facility] Non-Formulary Medication (Rosuvastatin Calcium [Rosuvastatin Calcium]) 20 mg PO DAILY [facility] Last Admin: 01/22/21 22:00 Dose: Not Given Documented by: Non-Formulary Medication (Ubidecarenone) 100 mg PO DAILY [facility] Last Admin: 01/22/21 22:00 Dose: Not Given Documented by: Ondansetron HCl (Ondansetron 4 Mg/2 Ml Sdv) 4 mg IVPUSH Q4H PRN PRN Reason: Nausea/Vomiting Ondansetron HCl (Ondansetron 4 Mg Tab.Dis) 4 mg PO Q4H PRN PRN Reason: Nausea/Vomiting Scopolamine (Scopolamine 1.5 Mg Transdermal Patch) 1.5 mg TRDERM Q72H [facility] Last Admin: 01/26/21 01:04 Dose: Not Given Documented by: Sertraline HCl (Sertraline 50 Mg Tab) 75 mg PO DAILY [facility] Last Admin: 01/22/21 18:20 Dose: 75 mg Documented by: Sodium Polystyrene Sulfonate (Sodium Polystyrene Sulfonate 15 Gm/60 Ml Susp 60 Ml Bot) 30 gm PO ONETIME ONE Stop: 01/22/21 17:41 Last Admin: 01/22/21 18:20 Dose: 30 gm Documented by: Tamsulosin HCl (Tamsulosin 0.4 Mg Cap.Er) 0.8 mg PO Q24H [facility] Last Admin: 01/22/21 18:19 Dose: 0.8 mg Documented by: Tiotropium [place] (Tiotropium [place] 4 Gm Inhalation [place] (2.5mcg/1 Dose; 10 Doses)) 0 gm INH Q24H [facility] Last Admin: 01/22/21 21:41 Dose: Not Given Documented by:
[2021-01-28 10:26] VITALS: BP 107/68
== END 2021-01-28 12:35 | DRG 951 ==
LOC: JD.ED 11:38 → JD.MS 15:41
PROVIDERS: ADMIT Internal Medicine; ATTEND Internal Medicine
DX: I13.0 Hypertensive heart and chronic kidney disease with heart failure and stage 1 through stage 4 chronic kidney disease, or unspecified chronic kidney disease (principal); Z51.5 Encounter for palliative care; I21.4 Non-ST elevation (NSTEMI) myocardial infarction; J96.21 Acute and chronic respiratory failure with hypoxia; D50.9 Iron deficiency anemia, unspecified; I50.33 Acute on chronic diastolic (congestive) heart failure; I48.91 Unspecified atrial fibrillation; D53.1 Other megaloblastic anemias, not elsewhere classified; N17.9 Acute kidney failure, unspecified; N18.4 Chronic kidney disease, stage 4 (severe); E87.1 Hypo-osmolality and hyponatremia; I42.6 Alcoholic cardiomyopathy; F41.9 Anxiety disorder, unspecified; J43.1 Panlobular emphysema; D63.1 Anemia in chronic kidney disease; R74.01 Elevation of levels of liver transaminase levels; F03.90 Unspecified dementia, unspecified severity, without behavioral disturbance, psychotic disturbance, mood disturbance, and anxiety; H54.7 Unspecified visual loss; G47.30 Sleep apnea, unspecified; Z20.822 Contact with and (suspected) exposure to COVID-19; I48.0 Paroxysmal atrial fibrillation; Z99.81 Dependence on supplemental oxygen; Z87.891 Personal history of nicotine dependence; Z87.01 Personal history of pneumonia (recurrent); Z79.82 Long term (current) use of aspirin; Z79.899 Other long term (current) drug therapy
CPT/HCPCS: 36415; 71045; 71045-26; 74176; 74176-26; 80053; 80307; 81001; 82553; 82947; 82977; 83605; 83690; 83735; 83880; 84484; 85025; 85610; 85730; 86140; 93005; 93010; 94762; 96365; 96368; 96376; 99223; 99233; 99238; 99285; 99285-25; A9270-GY; J0282; J0696; J1940; J2060; J3490; J7030; U0002

== ENCOUNTER 2021-03-28 14:56 | Emergency (ER) | payer OTHER, MEDICARE, BC ==
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
--- NOTE | 2021-03-28 16:03 | CT ---
Head CT Technique: Multiple axial sections through the brain were obtained. Intravenous contrast was not utilized. Reconstructed coronal and sagittal images were obtained. Comparison: Prior MRI brain of 01/30/14. Findings: Ventricles are moderately dilated. Sulci over the convexities are mildly dilated which includes the cerebellum. Diminished density is noted within the periventricular white matter compatible with small vessel ischemic demyelination change. This diminished density is slightly more prominent than on prior MRI. Old lacunar infarct is noted within the right basal ganglia. Slight diminished density is seen within the left basal ganglia. No other abnormal parenchymal densities are seen. No evidence of intracranial hemorrhage is seen. No midline shift or mass-effect is seen. Bone window settings were reviewed. Visualized mastoid sinuses and paranasal sinuses are clear. No acute calvarial abnormality is appreciated. Impression: 1. Senescent change as noted above. 2. No acute intracranial abnormality is appreciated. Diagnostic code #2
--- NOTE | 2021-03-28 16:04 | CR ---
Chest: Portable view of the chest was obtained. Comparison: Prior chest x-ray of 01/22/21. Heart size and mediastinum are within normal limits for portable technique. Lungs are clear with no acute parenchymal change. Bony structures show nothing acute. Impression: 1. Nothing acute is seen on portable chest x-ray. Diagnostic code #1
[2021-03-28 16:46] LABS: ACETAMINOPHEN 0 ug/mL (10-30)
[2021-03-28] MEDS ORDERED: LORazepam 2 MG/ML SDV IM ONE (17:42)
[2021-03-28] MEDS: Haloperidol Lactate 5 MG/ML SDV ONE ×2 (17:56→17:58)
[2021-03-28] MEDS ORDERED: Haloperidol Lactate 5 MG/ML SDV IM ONE (17:58)
[2021-03-28] MEDS ORDERED: diphenhydrAMINE 50 MG/ML SDV ONE (18:42)
[2021-03-28] MEDS ORDERED: diphenhydrAMINE 50 MG/ML SDV IM STA (18:44)
[2021-03-29] MEDS: risperiDONE 0.5 MG Tab PO SCH ×2 (00:52→09:46)
[2021-03-29] MEDS ORDERED: risperiDONE 0.5 MG Tab PO ONE ×2 (02:14→14:48)
[2021-03-29 12:39] VITALS: BP 98/62; PULSE 82
[2021-03-29] MEDS ORDERED: LORazepam 0.5 MG Tab PO ONE ×2 (14:48→16:11)
[2021-03-29] MEDS ORDERED: diphenhydrAMINE 50 MG Cap PO ONE (16:11)
== END 2021-03-29 19:00 ==
LOC: JD.ED 14:56
DX: F03.90 Unspecified dementia, unspecified severity, without behavioral disturbance, psychotic disturbance, mood disturbance, and anxiety (principal); F91.9 Conduct disorder, unspecified; I48.91 Unspecified atrial fibrillation; I50.9 Heart failure, unspecified; J44.9 Chronic obstructive pulmonary disease, unspecified; Z79.899 Other long term (current) drug therapy; Z20.822 Contact with and (suspected) exposure to COVID-19
CPT/HCPCS: 36415; 70450; 71045; 80053; 80143; 80179; 80306; 80307; 81003; 83735; 84443; 85025; 86140; 87635; 93005; 96372; 99285; A9270; J1200; J1630; J2060; 93010; U0002